=== PATIENT | male | born 1945 | race Caucasian/White ===

== ENCOUNTER 2019-10-31 12:00 | Outpatient (REF) | payer MEDICARE, BC, SELFPAY ==
[2019-10-31 12:49] LABS: NT Pro B Type Natriuretic Pept 8097 pg/mL (0-450)
== END 2019-10-31 12:01 | disposition home or self-care (01) ==
LOC: LAB 12:00
PROVIDERS: Family Provider Nurse Practitioner Family; Visit Provider Nurse Practitioner Family
DX: Z01.89 Encounter for other specified special examinations (principal)
CPT/HCPCS: 83880

== ENCOUNTER 2019-11-03 06:02 | Outpatient (CLI) | payer MEDICARE, BC, SELFPAY ==
--- NOTE | 2019-11-03 07:15 | USCV_ITS ---
PapaIlan ibarra Age: 74 Gender: M : 1945 Exam Date: 11/03/2019 06:25 Ordering Phys: Kim Bui SPORTS PHYSIOTHERAPIST SPORTS PHYSIOTHERAPIST Technologist: MARIA ELENA LAY Exam Location: [facility] [place] Indication: NEW ONSET OF CHF BP: 106 / 61 HR: 84 Rhythm: Sinus Technical Quality: Technically difficult study MEASUREMENTS (Male / Female) Normal Values 2D ECHO LVOT Diameter 2.2 cm LA Diameter 3.5 cm M-MODE LV Diastolic Diameter MM 4.5 cm 4.2 - 5.9 / 3.9 - 5.3 cm LV Systolic Diameter MM 3.4 cm LV Ejection Fraction MM Teich 49.1 % IVS Diastolic Thickness MM 1.2 cm 0.6 - 1.0 / 0.6 - 0.9 cm IVS Systolic Thickness MM 1.2 cm LVPW Diastolic Thickness MM 1.1 cm 0.6 - 1.0 / 0.6 - 0.9 cm LVPW Systolic Thickness MM 1.6 cm Aortic Annulus Diameter 3.6 cm LA Ao Ratio MM 1.0 MV E Point Septal Separation 1.1 cm DOPPLER AV Peak Velocity 165.0 cm/s LVOT Peak Velocity 58.0 cm/s AV Area Cont Eq vti 1.1 cm squared AV Area Cont Eq pk 1.3 cm squared MV Area PHT 4.5 cm squared Mitral E to A Ratio 1.4 MV E' Velocity 11.0 cm/s Mitral E to MV E' Ratio 11.6 Mitral E to LV E' Lateral Ratio 10.6 Mitral E to LV E' Septal Ratio 12.7 TR Peak Velocity 417.8 cm/s TR Peak Gradient 69.8 mmHg TR Mean Velocity 286.2 cm/s TR Mean Gradient 36.9 mmHg TR Velocity Time Integral 125.2 cm TV Peak E Velocity 68.0 cm/s Right Atrial Pressure 15.0 mmHg Pulmonary Artery Systolic Pressu 84.8 mmHg PV Peak Velocity 56.0 cm/s RV Acceleration Time 0.1 s RV Ejection Time 0.3 s RV AcT/ET 0.3 FINDINGS Left Ventricle Normal left ventricular cavity size. Mildly decreased left ventricular systolic function. Flattened septum in diastole consistent with right ventricle volume overload. Grade I/IV diastolic dysfunction (abnormal relaxation filling pattern), normal to mildly elevated filling pressures. Right Ventricle Moderately increased right ventricular size. Severe pulmonary hypertension, RVSP 84.8 mmHg. Right Atrium Moderately increased right atrial size. Left Atrium The left atrium is normal in size. Mitral Valve Severely thickened mitral valve. Severe mitral annular calcification. Trace mitral valve regurgitation. Aortic Valve Severe aortic valve calcification. Moderate aortic valve stenosis, mean gradient 6.1 mmHg, SHUKRI 1.1 cm squared. Trace aortic valve regurgitation. Tricuspid Valve No tricuspid valve stenosis. Moderate tricuspid valve regurgitation. Pulmonic Valve Structurally normal pulmonic valve without significant stenosis. There is no pulmonic regurgitation. Pericardium Normal pericardium without effusion. Aorta Normal ascending aorta dimension. CONCLUSIONS 1-Normal left ventricular cavity size. Mildly decreased left ventricular systolic function. Flattened septum in diastole consistent with right ventricle volume overload. Grade I/IV diastolic dysfunction (abnormal relaxation filling pattern), normal to mildly elevated filling pressures. 2-Moderately increased right atrial size. 3-Severely thickened mitral valve. Severe mitral annular calcification. Trace mitral valve regurgitation. 4-Severe aortic valve calcification. Moderate aortic valve stenosis, mean gradient 6.1 mmHg, SHUKRI 1.1 cm squared. Trace aortic valve regurgitation. 5-Moderately increased right ventricular size. Severe pulmonary hypertension, RVSP 84.8 mmHg. 6-Right atrial pressure is around 20 mm of mercury. 7-When compared to the prior echocardiogram dated 11/10/2019 there appeared to be severe pulmonary hypertension, moderate tricuspid regurgitation and moderate aortic stenosis now. Chantel Sevilla MD (Electronically Signed) Final Date: 03 November 2019 17:45 S
== END 2019-11-03 06:03 | disposition home or self-care (01) ==
LOC: US 06:03
PROVIDERS: Family Provider Family Medicine; PCP Family Medicine; Visit Provider Nurse Practitioner Family
DX: I50.9 Heart failure, unspecified (principal); I05.9 Rheumatic mitral valve disease, unspecified; I70.0 Atherosclerosis of aorta; I35.0 Nonrheumatic aortic (valve) stenosis; I27.20 Pulmonary hypertension, unspecified
CPT/HCPCS: 93306

== ENCOUNTER 2019-11-15 09:30 | Outpatient (CLI) | payer MEDICARE, BC, SELFPAY ==
--- NOTE | 2019-11-15 | US_ITS ---
WS: [id number] BILATERAL LOWER EXTREMITY VENOUS DOPPLER ULTRASOUND HISTORY: NEW ONSET OF CONGESTIVE HEART FAILURE COMPARISON: None available. Normal 2-D, Doppler and augmentation and compressibility throughout the lower extremity venous struct ures. Additional imaging through the proximal calf veins also reveal no thrombus. Limited evaluation of the greater saphenous vein is patent with no thrombus. Bilateral evaluation. US/ROR venous duplex LE BI IMPRESSION: No DVT lower extremities.
== END 2019-11-15 09:31 | disposition home or self-care (01) ==
LOC: RADOUTREAD 12:50
PROVIDERS: Family Provider Family Medicine; PCP Family Medicine; Visit Provider Nurse Practitioner Family
DX: Z76.89 Persons encountering health services in other specified circumstances (principal)

== ENCOUNTER 2019-11-24 08:30 | Observation (INO) | payer MEDICARE, BC, SELFPAY ==
[2019-11-24] VITALS (16 sets, daily range): BP systolic 101–142; BP diastolic 52–85; PULSE 66–88; RESP 14–36; TEMP 36.6; O2SAT 82–100; BMI 30.7
--- NOTE | 2019-11-24 07:22 | XACV_ITS ---
Exam Room: [facility] Ht: 185 cm Wt: 106 kg BSA: 2.36 m2 Gender: Male : 1945 Any Known Allergies: No known allergies Exam Priority: Routine Procedure(s): Procedure Description: Diagnostic procedure Procedure Description: Right Heart Catheterization Procedure Description: O2 saturation Procedure Description: Coronary Angiography Diagnostic Cath Status: Elective Diagnostic Findings LM has 0% stenosis. dLAD: Mild 20% stenosis, SALMA: 3 flow. dCIRC: Mild 20% stenosis, SALMA: 3 flow. mRCA: Mild 30% stenosis, SALMA: 3 flow. Coronary angiography shows right dominance. PCI Status: Elective Conclusions There is mild coronary artery disease with three vessel disease. Right heart cath. #1 High right-sided filling pressure RA =17 mmHg #2 High right ventricle systolic pressure 69/35 mmHg #3 S evere pulmonary hypertension 60 mmHg High cardiac output 6 L/m, Normal cardiac index 2.0No reversibility notedNo intracardiac shunt noted . Recommendations Continue current medical management and risk factor modification. Pressures Phase:Rest AO : 104 mmHg / 68 mmHg ( 81 mmHg ) @ 3:25:00 AM RV : 92 mmHg / 16 mmHg / @ 3:13:00 AM PA : 69 mmHg / 35 mmHg ( 48 mmHg ) @ 3:00:00 AM 76 mmHg / 48 mmHg ( 60 mmHg ) @ 3:05:00 AM 74 mmHg / 52 mmHg ( 61 mmHg ) @ 3:08:00 AM 66 mmHg / 53 mmHg ( 60 mmHg ) @ 3:12:00 AM RA : a wave = v wave = mean = 17 mmHg @ 3:14:00 AM O2 Content Phase:Rest PA : O2 Content O2: 67.6 % @ 3:25:00 AM Saturations Phase:Rest AO : 89 % @ 3:08:00 AM RA : 59 % @ 3:05:00 AM RV : 60 % @ 3:00:00 AM PA : 68 % @ 3:25:00 AM Cardiac Output Phase:Rest David : 6 l/min @ 3:25:00 AM David Cardiac Index: 3 L/min/m2 @ 3:25:00 AM Clinical Evaluation EBL: 5mL-10mL Procedural Details Procedure Consent Obtained. Pre-Procedure Time Out. Identified patient by full name and date of as verbalized by the patient/guarantor. Does the consent match the physician's order: Yes. Accurate & Complete Informed Consent: Yes. Inpatient/Outpatient History & Physical on Chart: Yes. If H&P is completed, is and addenduem needed: No; If yes, is the addendum complete: N/A. Visualize and Verify Site with Patient/Guarantor: N/A. Relevant Radiology Images available: Yes. Pre-op teaching completed and patient verbalized understanding. The risks, benefits, and alternatives of sedation and/or procedure were discussed by physician. The patient agrees to continue. Procedure started. Correct patient, site and procedure confirmed by cath team. Current diagnosis: Shortness of breath and Chest Pain. PERRLA. Strong, equal hand sheather bilaterally. Lungs clear x 5 lobes. IV Site on Arrival: 20 gauge in the right anticubital. IV Fluids: 0.9% NaCl at KVO. 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 Pre Procedural Pulses: bilateral dorsalis pedis was 3+. Pre Procedural Pulses: bilateral posterior tibial was 3+. Pre Procedural Pulses: bilateral radial was 3+. Oxygen started at 4liters/min via nasal canula. bilateral groins was prepped with chloroprep then draped in the usual sterile fashion. right radial was prepped with chloroprep then draped in the usual sterile fashion. Physician notified. Baseline sample Acquired. HR: 82 BPM. Equipment: 6F - Radial. ACIST Manifold Kit Model BT 2000. Cardiac Cath Pack. Heparinized Saline (2 units/mL), 1000 mL bag. Physician arrived. Physician scrubbed in. Immediate Pre-Procedure Time Out. Correct Patient: Yes; Correct Procedure: Yes; Correct Site: Yes; Correct Patient Position: Yes; Correct Supplies: Yes; Dried Flammable Prep: Yes; Blood Products Available: No;. Lidocaine 1% infiltrated to the right brachial. Arterial access obtained. [place] MON catheter inserted. Hand injection performed. Patient placed on room air. Oximetry samples were obtained. Normal venous range: 60-85%. Normal arterial range: 95-100%. O2 placed back on 4lpm. [place] out. Lidocaine 1% infiltrated to the right radial. Family updated. A 5 mongolian TIG catheter in over wire. Patient placed back on room air. AO saturation drawn. Patient placed on 4lpm. Multiple views taken of left coronary artery. Catheter redirected to the RCA. Multiple views taken of right coronary artery. Catheter out. A 5 mongolian Bernardino catheter in over wire. 6 mongolian XB 3.5 guide catheter was inserted over the wire. A 6 mongolian Angled Pig catheter in over wire. Vital chart was stopped. TR band placed. Hemostasis obtained. A Manual Compression was successful obtaining hemostatsis at the Right Brachial artery insertion site. A TR Band was successful obtaining hemostatsis at the Right Radial artery insertion site. Post Procedure: Pulses reassessed and unchanged. PERRLA. Strong, equal hand sheather bilaterally. No VTE prophylaxis required. Medication's Wasted: Lidocaine 1% = 12 mL. Medication's Wasted: Nitro = 49.8 mg. Medication's Wasted: Heparin = 1000 units. Medication's Wasted: Other = Fentanyl 25 mcg. Total IV fluids: 75 mL. Contrast type used: Visipaque 320 mgI/mL, 500 mL bottle. Complications: None. Estimated blood loss: 5mL-10mL. [facility] Clinical Fraility Score: 3: Managing Well. 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 Chest Pain Symptom Assessment: Typical Angina Symptoms. Cardiovascular Instability: No. Procedure completed. Post-op diagnosis: Pulmonary Hypertension. Site: Right Brachial artery Sheath Size: 6 Fr Hemostasis Method: Manual Compression Hemostasis Success: Successful Site: Right Radial artery Sheath Size: 6 Fr Hemostasis Method: TR Band Hemostasis Success: Successful Procedure Medications Start: 8:38 AM Stop: 8:38 AM Medication: Versed Amount: 1 mg Route: I.V. Start: 8:38 AM Stop: 8:38 AM Medication: Fentanyl Amount: 50 mcg Route: I.V. Start: 8:48 AM Stop: 8:48 AM Medication: Versed Amount: 1 mg Route: I.V. Start: 9:06 AM Stop: 9:06 AM Medication: Nitrogylcerin Amount: 2 Sprays Start: 9:09 AM Stop: 9:09 AM Medication: Nitrogylcerin Amount: 2 Sprays Start: 9:09 AM Stop: 9:09 AM Medication: Versed Amount: 0.5 mg Route: I.V. Start: 9:17 AM Stop: 9:17 AM Medication: Fentanyl Amount: 25 mcg Route: I.V. Start: 9:25 AM Stop: 9:25 AM Medication: Heparin Amount: 5000 units Route: I.V. Start: 9:38 AM Stop: 9:38 AM Medication: Versed Amount: 1 mg Route: I.V. I, the attending physician, have reviewed and verified all procedure medications. Yes, all medications given per verbal order History/Risk Factors Hypertension: Yes Dyslipidemia: No Peripheral Arterial Disease (PAD): No Myocardial Infarction (IL): No Obesity: No Renal Disease: No Tobacco Use: Former Prior Interventions PCI: No CABG: No Valve Surgery: No Report Signatures Finalized by:Chantel Sevilla MD on 12/02/2019 7:05:00 PM
[2019-11-24] MEDS: diphenhydrAMINE 50 mg Capsule PO (07:29)
--- NOTE | 2019-11-24 07:35 | SUR.PREOP ---
THE PATIENT'S ROOM AIR SAT WAS 82%. WHEN ASKED HE STATES THAT HE WEARS O2 CHRONICALLY AT HOME AT 5 LPM BNC PRN. THIS NURSE ASKED IF HE FELT LIKE HE NEEDED IT AND HE STATED NO, THIS IS MY NORMAL . THE PATIENT IS IN NO VISIBLE DISTRESS. THE O2 WAS MONITORED FOR A FEW MINUTES WITH THE SATS STAYING 82-83%. O2 WAS PLACED ON THE PATIENT AT 4 LPM BNC WITH SATS INCREASING TO 93-96%.
[2019-11-24 07:44] LABS: Basophils # 0.1 10^3/uL (0.0-0.1); Basophils % 0.7 %; Eosinophils # 0.2 10^3/uL (0.0-0.8); Eosinophils % 2.7 %; Hematocrit 52.6 % (42.0-52.0); Hemoglobin 16.5 g/dL (11.7-16.6); Lymphocytes # 2.2 10^3/uL (0.8-4.8); Lymphocytes % 26.6 %; Mean Corpuscular HGB Conc 31.4 g/dL (30.0-36.0); Mean Corpuscular Hemoglobin 28.5 pg (28.0-34.0); Mean Platelet Volume 9.9 fL (7.4-10.4); Monocytes # 0.8 10^3/uL (0.2-0.9); Monocytes % 9.3 %; Neutrophils % 60.2 %; Nucleated Red Blood Cells % 0 %; Platelet Count 177 10^3/cmm (130-400); Red Blood Count 5.78 10^6/uL (4.1-5.3); Red Cell Distribution Width 15.9 % (12.1-15.1); White Blood Count 8.3 10^3/uL (4.0-10.0)
[2019-11-24 08:03] LABS: Anion Gap 15.6 (5-19); Blood Urea Nitrogen 41 mg/dL (8-23); Calcium 10.1 mg/dL (8.5-10.5); Carbon Dioxide 26 mmol/L (22-29); Chloride 102 mmol/L (98-107); Glucose 127 mg/dL (65-115); Osmolality Calculated 287 mOsm/kg (285-295); Potassium 4.6 mmol/L (3.5-5.1); Sodium 139 mmol/L (136-145)
--- NOTE | 2019-11-24 14:08 | PC.NURSE ---
patient discharge home at this time, patient provided with discharge instructions and educated on post angiogram site care. Discussed follow up appointment and plans for further care. Patient and spouse verbalized understanding of all instructions given. IV discontinued cath intact min bleeding noted.
== END 2019-11-24 14:15 | disposition home or self-care (01) ==
LOC: CSU 08:31
PROVIDERS: Admitting Provider Internal Medicine Cardiovascular Disease; Family Provider Family Medicine; PCP Family Medicine; Visit Provider Internal Medicine Cardiovascular Disease
DX: I25.10 Atherosclerotic heart disease of native coronary artery without angina pectoris (principal); Z82.49 Family history of ischemic heart disease and other diseases of the circulatory system; I11.0 Hypertensive heart disease with heart failure; I50.9 Heart failure, unspecified; Z87.891 Personal history of nicotine dependence; I35.0 Nonrheumatic aortic (valve) stenosis
CPT/HCPCS: 36415; 80048; 85025; 93456; C1751; C1769; C1887; C1894; G0378; J1644; J2001; J2250; J3010; J3490; J7030; Q0163; Q9967

== ENCOUNTER 2020-04-13 08:49 | Outpatient (CLI) | payer MEDICARE, BC, SELFPAY ==
[2020-04-13 10:21] LABS: D Dimer 2.99 ug/mIFEU (0-0.59)
[2020-04-13 10:37] LABS: NT Pro B Type Natriuretic Pept 3875 pg/mL (0-450)
== END 2020-04-13 08:50 | disposition home or self-care (01) ==
LOC: LAB 08:53
PROVIDERS: Family Provider Family Medicine; PCP Family Medicine; Visit Provider Nurse Practitioner Family
DX: R06.02 Shortness of breath (principal)
CPT/HCPCS: 83880; 85378

== ENCOUNTER → 2020-07-06 09:53 | Day surgery (SDC) | payer MEDICARE, BC, SELFPAY ==
[2020-07-06 10:33] VITALS: BP 97/56; PULSE 95; RESP 18; TEMP 36.4; O2SAT 100; BMI 25.7
--- NOTE | 2020-07-06 11:24 | PM.ACPR ---
Procedure/Consent Time out: Time Out Performed: Yes Consent: Consent for Procedure: Consent obtained from patient Procedure Narrative: Name of the procedure: Right-sided thoracentesis under ultrasound guidance Indication: Suspicion for pleural space infection Anesthetics: Local anesthesia with 1% lidocaine. IV pain medication: None. Description of the procedure: The procedure was explained to the patient in detail including the risks and a consent was obtained. The right hemithorax was scanned with ultrasound to find a safe fluid pocket. Complex organized small loculated pleural effusion was identified. Following identification of the fluid pocket the site was marked. The site was cleaned using sterile technique. Lidocaine 1% was injected into the skin and the subcutaneous tissue. Subsequently, the periosteum in the parietal pleural was also anesthetized using lidocaine. The pleural space was entered in the posterior axillary line in the right seventh intercostal space. No significant fluid was aspirated. Complications: None Acute Procedures Epistaxis Control: Time out performed: Yes
--- NOTE | 2020-07-06 11:31 | PC.NURSE ---
Pt was continuously monitored vital signs. Oxygen saturation remained at 100% for duration of procedure. Dr. Chen attempted to aspirate fluid from right side pleural space but was unable to receive any fluid. Bandage was applied to insertion side by Dr. Chen. No bleeding noted.
== END ==
PROVIDERS: PCP Family Medicine; Visit Provider Internal Medicine Critical Care Medicine
DX: J90 Pleural effusion, not elsewhere classified (principal)
CPT/HCPCS: 12345; 32554

== ENCOUNTER 2021-04-24 12:34 | Outpatient (CLI) | payer MEDICARE, BC, SELFPAY ==
--- NOTE | 2021-04-24 14:30 | CT_ITS ---
WS: [id number] CT CHEST, ABDOMEN, AND PELVIS TECHNIQUE: Noncontrast CT of the chest, abdomen, and pelvis with coronal and sagittal reformatted madelyn ges. CLINICAL INFORMATION: Weight Loss COMPARISON: CTA 12 , PET/CT 4 , CT chest 4 ,018. DLP: 2345.[address] scans at [facility] use at least one of these dose optimization techniques: automat ed exposure control; mA and/or kV adjustment per patient size (includes targeted exams where dose is matched to clinical indication); or iterative reconstruction. CT CHEST: Volume loss right lung with prior right lower and middle lobectomy. Postoperative changes along the r ight infrahilar lung. Small right pleural effusion with compressive atelectasis right lower lobe. Int erstitial thickening with patchy fibrotic appearing parenchymal infiltrates in the right midlung and right lung base.. This is improved in appearance since 2018. Left lung is well aerated. No mediastinal or hilar lymphadenopathy. Aortic calcification. Coronary calcification. Bronchovascula r thickening along the right hilum consistent with postoperative and posttherapeutic changes.Hypertro phic changes thoracic spine. CT ABDOMEN AND PELVIS: Mild hepatomegaly. Cholecystectomy clips. Mild splenomegaly measuring 12.5 cm. Normal GE junction. Fatty atrophy of the pancreas. Adrenal gland s are normal. No hydronephrosis in either kidney. No obstructing renal or ureteral calculi. Slightly prominent prostate measuring 3.1 x 3.8 cm. Aortic calcification. Dense calcified atheromatous disease . No aneurysm. No abdominal or pelvic lymphadenopathy. No inguinal lymphadenopathy. CT/CT chest abd pel wo con IMPRESSION: 1. Prior postoperative changes right middle and lower lobe lobectomy. Volume l oss right lung similar in appearance to the prior exams. 2. Bronchovascular soft tissue thickening along the right hilum and infrahilar lung consistent with postoperative changes similar to previous. 3. Small right pleural effusion improved from 2018. 4. Interstitial fibrotic appearing infiltrates in the right midlung and right lung base have a chronic appearance and are similar to 2018 but have improved. 5. No mediastinal or hilar lymphadenopathy. 6. No abdominal or pelvic lymphadenopathy. 7. Mild hepatomegaly and splenomegaly. 8. Densely calcified abdominal aorta. No aneurysm. 9. Slightly prominent prostate measuring 3.8 x 3.1 CCM. Recommend correlation PSA. 10. No other significant findings.
== END 2021-04-24 12:35 | disposition home or self-care (01) ==
PROVIDERS: PCP Family Medicine; Visit Provider Internal Medicine Critical Care Medicine
DX: R63.4 Abnormal weight loss (principal); N40.0 Benign prostatic hyperplasia without lower urinary tract symptoms; I70.0 Atherosclerosis of aorta; R16.2 Hepatomegaly with splenomegaly, not elsewhere classified; J90 Pleural effusion, not elsewhere classified; R91.8 Other nonspecific abnormal finding of lung field; Z90.2 Acquired absence of lung [part of]
CPT/HCPCS: 71250; 74176

== ENCOUNTER 2021-07-30 11:06 | Emergency (ER) | payer MEDICARE, BC, SELFPAY ==
[2021-07-30] VITALS (8 sets, daily range): BP systolic 93–128; BP diastolic 54–78; PULSE 72–80; RESP 16–18; TEMP 36.2; O2SAT 94–100; BMI 25.1
--- NOTE | 2021-07-30 12:05 | ED_ITS ---
HPI - Male Genitourinary General: Chief complaint: Urogenital-Male Stated complaint: Unable to urinate since Midnight Time Seen by Provider: 07/30/21 12:03 History of Present Illness: HPI Narrative: Mr. Bhatia is a 76-year-old gentleman with complex past medical history including pulmonary hypertension, aortic stenosis, hypertension, CHF who presents emergency department due to urinary retention. He reports a history of a number of years of increased night awakening to urinate and decrease stream. Starting this morning at around midnight he has been unable to void until of course getting here and having a small amount of urine output. He does endorse mild aching abdominal discomfort associated with this. This improved with urination. He has been following closely with his materials technician and has been working on diuresis. Baseline shortness of breath and other symptoms. No history of similar. No other specific exacerbating relieving factors. Review of Systems General: Reports: 10 or more systems reviewed and unremarkable except in HPI and below PFSH ED PFSH: Medical History (Updated 07/30/21 @ 18:22 by Murphy Peres MD) AML (acute myeloblastic leukemia) Aortic valvar stenosis CHF (congestive heart failure) History of DVT (deep vein thrombosis) HTN (hypertension) Pulmonary hyperinflation Surgical History History of bone marrow biopsy S/P carpal tunnel release left S/P cholecystectomy S/P knee surgery left S/P thoracotomy Family History Brother CAD (coronary artery disease) Cancer Social History Quit status (tobacco): has quit using tobacco Year quit tobacco: 1987 - 2PPD x 30 Years Second hand smoke exposure: No Smoking risk assessment/counseling performed?: Yes Alcohol intake: never Lives independently: Yes Household members: spouse Marital status: service: Yes Current occupational status: retired Pets and animals: Yes Pets & animals: cat(s) Pets & animal details: outside History of recent travel: No Current gender identity: Male Physical Exam Narrative: EXAM NARRATIVE: GENERAL/CONSTITUTIONAL - well-appearing. No acute distress. Eyes - no scleral icterus, no conjunctival injection ENMT - Atraumatic external nose and ears. Moist mucous membranes NECK - supple. trachea midline CARDIOVASCULAR - regular rate and rhythm. Peripheral pulses 2+ and equal RESPIRATORY -clear to auscultation bilaterally. No retractions or accessory muscle use. ABDOMEN/GI - suprapubic tenderness to palpation which is mild. No evidence of remote peritonitis. MSK - Extremities without obvious deformity or tenderness to palpation SKIN - Warm, Dry NEURO - alert and appropriately oriented. Moves all extremities equally. Course ED course: - Patient was seen and evaluated by me at bedside - Patient placed on cardiac monitors, IV access obtained - Initial evaluation notable for no acute distress, nontoxic appearance. Exam as noted above. - Bladder scan with urine present in bladder. - Labs notable for no leukocytosis, no anemia. Metabolic panel notable for low potassium 2.5. Replenishment ordered. BNP still elevated however patient feels improved with improvement in peripheral edema. Baseline oxygen requirement. No urinary tract infection. - Imaging notable for no acute bony pathology or evidence of marked central canal stenosis. The patient has some baseline low back pain however based on clinical exam and reported symptoms no additional imaging needed at this time. - Upon serial reexamination after treatment the patient was improved. He received both oral and IV potassium replenishment. I discussed the case with the patient's coil finisher, patient to be taken off metolazone and have repeat labs this week. - Exact etiology of patient's acute urinary retention is somewhat unclear though felt to be related to BPH. Plan to have patient follow-up with Dr. Aaron. - The results of ED evaluation were discussed with the patient including prescriptions and/or symptomatic cares (if applicable) including appropriate and responsible use, followup plan, and return precautions. The patient verbalized understanding and felt safe for discharge. - Patient discharged in satisfactory condition. Vital Signs: Vital signs: Vital Signs Temperature 97.1 F L 07/30/21 12:17 Pulse Rate 72 07/30/21 17:26 Respiratory Rate 16 07/30/21 17:26 Blood Pressure 93/56 07/30/21 18:38 Pulse Oximetry 100 07/30/21 18:38 MDM - Male Medical Records: Attestation: I reviewed the patient's medical records. Lab Data: Attestation: I reviewed the patient's lab results. Labs: Lab Results 07/30/21 07/30/21 07/30/21 12:45 12:45 12:45 WBC 5.8 10^3/uL 10^3/ uL (4.0-10.0) RBC 4.24 10^6/uL 10^6 /uL (4.1-5.3) Hgb 11.7 g/dL g/dL (11.7-16.6) Hct 36.4 % L % (42.0-52.0) MCV 85.8 fl fl (80-94) MCH 27.6 pg L pg (28.0-34.0) MCHC 32.1 g/dL g/dL (30.0-36.0) RDW 15.8 % H % (12.1-15.1) Plt Count 165 10^3/cmm 10^3 /cmm (130-400) MPV 9.3 fL fL (7.4-10.4) Neut % (Auto) 79.9 % % Lymph % (Auto) 8.3 % % [place] % (Auto) 10.7 % % Eos % (Auto) 0.5 % % Baso % (Auto) 0.3 % % Neut # (Auto) 4.60 10^3/uL 10^3 /uL (1.8-7.7) Lymph # (Auto) 0.5 10^3/uL L 10^ 3/uL (0.8-4.8) [place] # (Auto) 0.6 10^3/uL 10^3/ uL (0.2-0.9) Eos # (Auto) 0.0 10^3/uL 10^3/ uL (0.0-0.8) Baso # (Auto) 0.0 10^3/uL 10^3/ uL (0.0-0.1) Nucleated RBC % (a uto) 0 % % Nucleated RBCs # 0.0 /100WBC /100W BC Sodium 130 mmol/L L mmol /L (136-145) Potassium 2.5 mmol/L L* mmo l/L (3.5-5.1) Chloride 89 mmol/L L mmol/ L (98-107) Carbon Dioxide 30 mmol/L H mmol/ L (22-29) Anion Gap 13.5 (5-19) BUN 16 mg/dL mg/dL (8-23) Creatinine 0.7 mg/dL mg/dL (0.7-1.2) GFR Calculation Not Reportable Glucose 98 mg/dL mg/dL (65-115) Calculated Osmolal ity 271 mOsm/kg L mOs m/kg (285-295) Calcium 8.4 mg/dL L mg/dL (8.5-10.5) Magnesium Urine Color Yellow (Yellow) Urine Appearance Clear (CLEAR) Urine pH 6.5 (5-7) Ur Specific Gravit y 1.005 (1.005-1.030) Urine Protein Neg (Negative) Urine Glucose (UA) Norm (Normal) Urine Ketones Negative (Negative) Urine Blood Neg (Negative) Urine Nitrate Negative (Negative) Urine Bilirubin Neg (Negative) Urine Urobilinogen Norm mg/dL mg/dL (Negative) Ur Leukocyte Monika ase Negative (Negative) 07/30/21 12:45 WBC RBC Hgb Hct MCV MCH MCHC RDW Plt Count MPV Neut % (Auto) Lymph % (Auto) [place] % (Auto) Eos % (Auto) Baso % (Auto) Neut # (Auto) Lymph # (Auto) [place] # (Auto) Eos # (Auto) Baso # (Auto) Nucleated RBC % (a uto) Nucleated RBCs # Sodium Potassium Chloride Carbon Dioxide Anion Gap BUN Creatinine GFR Calculation Glucose Calculated Osmolal ity Calcium Magnesium 1.9 mg/dL mg/dL (1.7-2.3) Urine Color Urine Appearance Urine pH Ur Specific Gravit y Urine Protein Urine Glucose (UA) Urine Ketones Urine Blood Urine Nitrate Urine Bilirubin Urine Urobilinogen Ur Leukocyte Monika ase Discharge Plan Discharge Patient Disposition: Home Clinical Impression: Acute urinary retention, Acute hypokalemia Condition: Stable Prescriptions: New Flomax 0.4 mg capsule 0.4 mg PO .qhs Qty: 20 RF: 0 Pyridium 100 mg tablet 100 mg PO Q8H Qty: 6 RF: 0 No Action levothyroxine 100 mcg tablet 100 mcg PO DAILY RF: 0 furosemide 40 mg tablet 40 mg PO DAILY Qty: 90 RF: 3 potassium chloride 20 mEq/15 mL liquid 20 meq PO DAILY Qty: 450 RF: 6 albuterol sulfate 2.5 mg /3 mL (0.083 %) solution for nebulization 5 mg inhalation Q4H PRN (Reason: shortness of breath or wheezing) RF: 0 metolazone 2.5 mg tablet 2.5 mg PO DAILY 7 Days Qty: 7 RF: 0 cetirizine [Zyrtec] 10 mg tablet 10 mg PO DAILY RF: 0 guaifenesin [Mucinex] 600 mg tablet extended release 12hr 600 mg PO Q12H PRNRF: 0 nystatin 100,000 unit/mL suspension 1 ml PO QID PRN (Reason: Mouth Irritation) RF: 0 valacyclovir [Valtrex] 500 mg tablet 500 mg PO DAILY RF: 0 azithromycin 250 mg tablet 250 mg PO .COMPLEX 30 Days Qty: 15 RF: 3 sildenafil (pulm.hypertension) 20 mg tablet See Rx Instructions .ROUTE .COMPLEX Qty: 270 RF: 3 Trelegy Ellipta 100-62.5-25 mcg Blister With Device 1 inh INHALATION DAILY RF: 0 Discharge Orders: Discharge ED (Routine); Ordered 07/30/21 Ordered By: Murphy Peres Referrals: Rhys Ramos MD [Primary Care Provider] - Discharge Diet: Usual diet Discharge Activity: Resume usual activity Patient Instructions: Urinary Retention in Men (ED), Hypokalemia (ED), Martínez Catheter Placement and Care (ED) Activity Restrictions/Additional Instructions: Thank you for visiting the emergency department. You were seen and evaluated for urinary retention. The exact cause of this is unclear though likely related to enlarged prostate. Additionally you are found to have low potassium which was replaced. Please follow-up with your primary care provider. Dr. Chen, and Dr. Aaron. Per Dr. Chen's recommendation please stop your metolazone. You will need repeat labs in the next few days. Please return to the emergency department for worsening symptoms or anything else that you are concerned about and feel needs emergency department evaluation. Coding Level of Care Code ED [facility]
--- NOTE | 2021-07-30 12:19 | PC.NURSE ---
PATIENT COMPLAINS OF 9/10 PAIN IN LOWER ABDOMEN. PATIENT STATES THAT LAST VOID WAS AROUND MIDNIGHT. PATIENT HAS VOIDED 150 ML SINCE BEING HERE. BLADDER SCANNER COMPLETE. READINGS OF GREATER THAN 530 ML.
--- NOTE | 2021-07-30 12:35 | CT_ITS ---
WS: [id number] CT LUMBAR SPINE, noncontrast. HISTORY: low back pain TECHNIQUE: Contiguous 2.5 mm axial imaging are performed. Sagittal and coronal reformats are submitte d and reviewed. All CT scans at [facility] use at least one of these dose optimization techni ques: automated exposure control; mA and/or kV adjustment per patient size (includes targeted exams w here dose is matched to clinical indication); or iterative reconstruction. IV contrast: None DLP: 2395.5 mGy.cm COMPARISON: None available. Mild straightening of the normal lumbar lordosis. Diffuse osteopenia. Disc spaces are mildly narrowed with mild osteophytic ridging at all levels. No acute fracture is identified. L1-2: Mild annular disc bulging and osteophytic ridging. No stenosis. L2-3: Moderate osteophytic ridging and annular disc bulging. Larger osteophytes extend into the RIGHT foramen. Osteophyte contacts the exiting RIGHT L2 nerve root. Mild RIGHT foraminal narrowing. L3-4: Mild annular disc bulging and osteophytic ridging. Disc and osteophyte encroachment upon the ve ntral thecal sac causing a mild central and subarticular recess stenosis. Mild foraminal stenosis. L4-5: Diffuse osteophytic ridging and annular disc bulging with ligamentum flavum and facet arthritis . Moderate central and bilateral subarticular recess stenosis. Mild foraminal stenosis. There is oste ophyte contact on the traversing L5 nerve roots. L5-S1: Mild broad-based disc bulging with slight contact on the S1 nerve roots bilaterally and osteop hytic ridging. No significant foraminal stenosis. Mild narrowing of the SI joints. Moderate near circumferential calcification of abdominal aorta. Ther e is a small amount of free fluid in the pelvis with perirectal soft tissue thickening. Similar to th e prior CT of 04/24/2021. Increasing opacification of the RIGHT thorax noted on the almond huller localizer. CT/CT lumbar spine wo con* [id number] IMPRESSION: 1. Osteophyte contact on the RIGHT exiting L2 nerve root causing mild foramina l narrowing. 2. Mild central and bilateral subarticular recess and foraminal stenosis at L3 -4 due to disc and osteophyte disease. 3. Moderate central with bilateral subarticular recess stenosis at L4-5 with o steophyte contacting the traversing L5 nerve roots. 4. Broad-based disc bulging at L5-S1 with slight contact on the S1 nerve roots bilaterally. 5. Increasing opacification throughout the RIGHT thorax seen on the almond huller loca lizer with a small amount of free fluid in the pelvis. Pleural effusion and ate lectasis have been described on prior exams.
[2021-07-30 12:53] LABS: Basophils % 0.3 %; Eosinophils % 0.5 %; Hematocrit 36.4 % (42.0-52.0); Hemoglobin 11.7 g/dL (11.7-16.6); Lymphocytes # 0.5 10^3/uL (0.8-4.8); Lymphocytes % 8.3 %; Mean Corpuscular HGB Conc 32.1 g/dL (30.0-36.0); Mean Corpuscular Hemoglobin 27.6 pg (28.0-34.0); Mean Corpuscular Volume 85.8 fl (80-94); Mean Platelet Volume 9.3 fL (7.4-10.4); Monocytes # 0.6 10^3/uL (0.2-0.9); Monocytes % 10.7 %; Neutrophils % 79.9 %; Nucleated Red Blood Cells % 0 %; Platelet Count 165 10^3/cmm (130-400); Red Blood Count 4.24 10^6/uL (4.1-5.3); Red Cell Distribution Width 15.8 % (12.1-15.1); White Blood Count 5.8 10^3/uL (4.0-10.0)
[2021-07-30 12:57] LABS: Add Urine Microscopic? NO; Charge for UA Resulting for Rev
[2021-07-30 12:59] LABS: Bilirubin Urine Neg (Negative); Blood Urine Neg (Negative); Glucose Urine UA Norm (Normal); Ketones Urine Negative (Negative); Nitrate Urine Negative (Negative); Protein Urine Neg (Negative); Specific Gravity, Urine 1.005 (1.005-1.030); Urine Appearance Clear (CLEAR); Urine Color Yellow (Yellow); pH Urine 6.5 (5-7)
[2021-07-30 13:00] LABS: Leukocyte Esterase Urine Negative (Negative); Urobilinogen Urine Norm (Negative)
[2021-07-30 13:14] LABS: Anion Gap 13.5 (5-19); Blood Urea Nitrogen 16 mg/dL (8-23); Calcium 8.4 mg/dL (8.5-10.5); Carbon Dioxide 30 mmol/L (22-29); Chloride 89 mmol/L (98-107); Glucose 98 mg/dL (65-115); Osmolality Calculated 271 mOsm/kg (285-295); Sodium 130 mmol/L (136-145)
[2021-07-30 13:16] LABS: Potassium 2.5 mmol/L (3.5-5.1)
[2021-07-30] MEDS: potassium chloride ER 20 mEq Tablet 40 MEQ PO (13:40)
[2021-07-30] MEDS: lidocaine 1% 5 ML in potassium chloride premix 100 ML 25 ML IV (13:45)
[2021-07-30 13:47] LABS: Magnesium 1.9 mg/dL (1.7-2.3)
--- NOTE | 2021-07-30 14:16 | PC.NURSE ---
PATIENT TOLERATING POTASSIUM WELL. ASKED IF PATIENT NEEDS ANYTHING, DENIED.
--- NOTE | 2021-07-30 14:32 | PC.NURSE ---
CATHETER PEGUERO DRAINED 1200 ML.
--- NOTE | 2021-07-30 18:05 | PC.NURSE ---
PEGUERO CATHETER DRAINED. 1800 ML, BRIGHT YELLOW URINE. PATIENT EDUCATION GIVEN ON HOW TO DRAIN PEGUERO CATHETER AND CARE FOR PEGUERO CATHETER AT HOME.
--- NOTE | 2021-07-31 09:02 | DCPLANNER ---
education program manager had message to schedule a follow up appointment for patient with Dr. Aaron. education program manager called the office of Dr. Aaron, spoke with Ena, gave clinic patients information. education program manager was told that patients information would be printed and reviewed. Clinic will call patient with appointment information.
--- NOTE | 2021-08-07 12:17 | DCPLANNER ---
Patient has a follow up appointment scheduled for Thursday, August 14, [address] at 4:[address] Aaron. Clinic will call patient with appointment information.
--- NOTE | 2021-10-13 16:33 | DCPLANNER ---
Patient had a followup appointment scheduled with Dr. Aaron - patient did attend appointment.
== END 2021-07-30 18:33 | disposition home or self-care (01) ==
PROVIDERS: Emergency Provider Emergency Medicine; PCP Family Medicine
DX: R33.9 Retention of urine, unspecified (principal); E87.6 Hypokalemia; I11.0 Hypertensive heart disease with heart failure; I50.9 Heart failure, unspecified; C93.00 Acute monoblastic/monocytic leukemia, not having achieved remission
CPT/HCPCS: 51702; 51798; 72131; 80048; 81003; 83735; 85025; 96374; 96375; 99283; J3480

== ENCOUNTER 2021-08-02 23:08 | Inpatient (IN) | payer MEDICARE, BC, SELFPAY ==
[2021-08-02 23:22] VITALS: BP 97/52; PULSE 88; RESP 28; O2SAT 90; BMI 23.7
--- NOTE | 2021-08-02 23:28 | XRR_ITS ---
PROCEDURE INFORMATION: Exam: XR Chest Exam date and time: 08/02/2021 11:28 PM Age: 76 years old Clinical indication: Sternal or substernal pain; Additional info: Cp TECHNIQUE: Imaging protocol: XR of the chest. Views: 1 view. COMPARISON: CT chest abd pel wo con 04/24/2021 2:45 PM FINDINGS: Lungs: There is volume loss seen within the right hemithorax. There are increased interstitial opacity seen within the left hemithorax and there is some indistinctness pulmonary vasculature seen, findings that could represent pulmonary edema. Superimposed interstitial pneumonia cannot be excluded. Pleural spaces: The right hemidiaphragm is obscured likely secondary to a right pleural effusion. Patchy and strandy opacities superimposed over the right pleural effusion. This may represent atelectasis although pneumonia cannot be excluded. Heart/Mediastinum: Unremarkable. No cardiomegaly. Bones/joints: Unremarkable. XR/XR chest 1V portable [id number] IMPRESSION: 1. Volume loss seen within the right hemithorax. 2. Probable moderate right pleural effusion with superimposed atelectasis versus infiltrates 3. Indistinct pulmonary vasculature and diffuse increased interstitial markings seen in the left hemithorax, findings that may represent pulmonary edema. Superimposed interstitial pneumonia cannot be excluded as well. Radiation Dose CTDIVOL = (mGy): DLP = (mGy-cm)
--- NOTE | 2021-08-02 23:28 | ECG_ITS ---
[facility] Test Date: 2021-08-02 Pat Name: Ilan Bhatia Department: Room: Gender: Male Sample Sawyer: : 1945 Requested By: Jae Rankin Order Number: [id number] Vipul MD: Aydee Rutherford M.D. Measurements Intervals [place] Rate: 91 P: 46 WI: 206 QRS: 194 QRSD: 139 T: 52 QT: 311 QTc: 384 Interpretive Statements SINUS RHYTHM WITH FREQUENT VENTRICULAR PREMATURE COMPLEXES POSSIBLE LEFT ATRIAL ENLARGEMENT [-0.1mV P-WAVE IN V1/V2] INDETERMINATE AXIS RIGHT BUNDLE BRANCH BLOCK [120+ ms QRS DURATION, UPRIGHT V1, 40+ ms S IN I/aVL/V4/V5/V6] Compared to ECG 09/14/2018 03:24:40 Ventricular premature complex(es) now present Indeterminate axis now present Right bundle-branch block now present Intraventricular conduction delay no longer present Electronically Signed On 08-04-2021 13:21:25 MANDOLIN REPAIR PERSON by Aydee Rutherford M.D. [id number]
[2021-08-03] VITALS (24 sets, daily range): BP systolic 86–99; BP diastolic 44–65; PULSE 65–78; RESP 12–20; TEMP 36.4–36.6; O2SAT 90–100
[2021-08-03] MEDS: levofloxacin-dextrose 5 % 750 MG/150 ML PREMIX 100 MG IV (00:27)
[2021-08-03] MEDS: morphine 4 mg/mL SDV 1 mL 2 MG IVP (00:27)
[2021-08-03] MEDS: ondansetron 2 mg/ML SDV 2 mL 4 MG IVP (00:27)
[2021-08-03 00:48] LABS: Troponin(5th) Baseline 29 ng/L (0-15)
[2021-08-03 00:52] LABS: Basophils % 0.5 %; Eosinophils # 0.1 10^3/uL (0.0-0.8); Eosinophils % 1.1 %; Hematocrit 34.9 % (42.0-52.0); Lymphocytes # 0.5 10^3/uL (0.8-4.8); Lymphocytes % 8.2 %; Mean Corpuscular HGB Conc 31.5 g/dL (30.0-36.0); Mean Corpuscular Hemoglobin 26.7 pg (28.0-34.0); Mean Corpuscular Volume 84.7 fl (80-94); Mean Platelet Volume 9.9 fL (7.4-10.4); Monocytes # 0.5 10^3/uL (0.2-0.9); Monocytes % 8.1 %; Neutrophils # 5.07 10^3/uL (1.8-7.7); Neutrophils % 81.8 %; Nucleated Red Blood Cells % 0 %; Platelet Count 143 10^3/cmm (130-400); Red Blood Count 4.12 10^6/uL (4.1-5.3); Red Cell Distribution Width 15.7 % (12.1-15.1); White Blood Count 6.2 10^3/uL (4.0-10.0)
[2021-08-03 00:57] LABS: Alanine Aminotransferase 11 U/L (0-41); Albumin Level 3.1 g/dL (3.5-5.2); Alkaline Phosphatase 156 IU/L (40-130); Anion Gap 14.8 (5-19); Aspartate Amino Transferase 20 U/L (0-40); Blood Urea Nitrogen 21 mg/dL (8-23); Calcium 8.6 mg/dL (8.5-10.5); Carbon Dioxide 33 mmol/L (22-29); Chloride 86 mmol/L (98-107); Creatine Phosphokinase 47 U/L (39-308); Globulin 4.1 g/dL (1.3-4.6); Glucose 109 mg/dL (65-115); NT Pro B Type Natriuretic Pept 10900 pg/mL (0-450); Osmolality Calculated 276 mOsm/kg (285-295); Sodium 131 mmol/L (136-145); Total Bilirubin 0.8 mg/dL (0.15-1.2); Total Protein 7.2 g/dL (6.6-8.7)
[2021-08-03 01:00] LABS: INR 1.21 (0.8-1.2)
[2021-08-03 01:02] LABS: ABG PCO2 48.4 mmHg (35-45); ABG PH Result 7.49 (7.35-7.45); Base Excess ABG 11.9 mmol/L (-2.0-2.0); Blood Gas Allen Test Pos; Blood Gas Sample Type Arterial; HCO3 ABG 36.8 mmol/L (22-26)
[2021-08-03 01:03] LABS: Lactate (Lactic Acid level) 1.1 mmol/L (0.5-2.2)
[2021-08-03 01:04] LABS: Potassium 2.8 mmol/L (3.5-5.1)
[2021-08-03 01:04] LABS: Blood Gas Sample Site Radial, left; Oxygen Device NC
[2021-08-03 01:14] LABS: Partial Thromboplastin Time 36.7 SECONDS (23.9-36.7)
[2021-08-03 01:16] LABS: D Dimer 2.64 ug/mIFEU (0-0.59)
--- NOTE | 2021-08-03 01:28 | ECG_ITS ---
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 Measurements Intervals [place] Rate: 76 P: 55 AK: 208 QRS: 164 QRSD: 151 T: 42 QT: 407 QTc: 459 Interpretive Statements SINUS RHYTHM WITH OCCASIONAL VENTRICULAR PREMATURE COMPLEXES RIGHT AXIS DEVIATION [QRS AXIS > 100] RIGHT BUNDLE BRANCH BLOCK [120+ ms QRS DURATION, UPRIGHT V1, 40+ ms S IN I/aVL/V4/V5/V6] Compared to ECG 08/02/2021 23:18:35 Right-axis deviation now present Indeterminate axis no longer present Electronically Signed On 08-04-2021 13:27:16 MAINTENANCE MILLWRIGHT by Aydee Rutherford M.D. [id number]
--- NOTE | 2021-08-03 01:39 | CTR_ITS ---
PROCEDURE INFORMATION: Exam: CTA Chest With Contrast Exam date and time: 08/03/2021 1:39 AM Age: 76 years old Clinical indication: Abnormal findings; Abnormal diagnostic tests; Elevated d-dimer; Shortness of breath; Prior surgery; Surgery type: Gb. RT pneumonectomy. ; Patient HX: SOB with elevated d dimer. History of leukemia and lung cancer. ; Additional info: Cp SOB TECHNIQUE: Imaging protocol: Computed tomographic angiography of the chest with contrast. 3D rendering (Not supervised by radiologist): MIP and/or 3D reconstructed images were created by the technologist. Radiation optimization: All CT scans at this facility use at least one of these dose optimization techniques: automated exposure control; mA and/or kV adjustment per patient size (includes targeted exams where dose is matched to clinical indication); or iterative reconstruction. Contrast material: OMNI 350; Contrast volume: 71 ml; Contrast route: INTRAVENOUS (IV); COMPARISON: CTA Chest-Pulmonary Emb [id number] 09/13/2018 11:59 PM RADIATION DOSE METRICS: Total DLP (mGy-cm): 620.7 FINDINGS: Pulmonary arteries: Normal. No pulmonary emboli. Aorta: Calcifications are seen in the thoracic and abdominal aorta. Lungs: Status post partial right pneumonectomy. There is resultant volume loss within the right hemithorax. Diffuse course reticular opacities are seen within the right upper lobe with consolidation and some air bronchograms also seen . Centrilobular emphysema, mild bronchiectasis and pulmonary fibrosis seen within the left hemithorax. Patchy opacities are seen in the left posterior costophrenic recess and infrahilar region likely representing atelectasis. Pleural spaces: There is a prominent right pleural effusion. Heart: Unremarkable. No cardiomegaly. No pericardial effusion. Lymph nodes: Multiple small retroperitoneal lymph nodes are seen that are below CT criteria for lymphadenopathy. Liver: There is a nodular contour of the liver compatible with cirrhosis. Gallbladder and bile ducts: Status post cholecystectomy. Bones/joints: Unremarkable. No acute fracture. Soft tissues: Unremarkable. Other findings: Strandy opacities are present in the perinephric fascia bilaterally compatible with chronic scarring. CT/CT angio chest PE protcl [id number] IMPRESSION: 1. There is no evidence for pulmonary emboli. 2. Status post partial right pneumonectomy . Prominent right pleural effusion is seen with superimposing volume loss within the right upper lobe, coarse reticular opacities and consolidation present. 3. Centrilobular emphysema, mild bronchiectasis and pulmonary fibrosis present within the left lung. Some patchy opacities are present in the left posterior costophrenic recess and some strandy opacities are seen in the infrahilar region compatible with atelectasis. 4. Nodular contour of the liver compatible with cirrhosis. Radiation Dose CTDIVOL = (mGy): DLP = 620.7 (mGy-cm)
[2021-08-03] MEDS: potassium chloride premix 100 ML 25 MEQ IV (01:44)
[2021-08-03] MEDS: iohexol 350 mg/mL 100 mL Btl IV (02:14)
[2021-08-03] MEDS: sodium chloride 0.9% 250 ML IV (02:30)
[2021-08-03] MEDS: fentaNYL 50 mcg/mL INJ 2mL IVP (02:30)
[2021-08-03 02:34] LABS: Add Urine Microscopic? YES; Bilirubin Urine Neg (Negative); Blood Urine 3+ (Negative); Glucose Urine UA Norm (Normal); Ketones Urine Negative (Negative); Leukocyte Esterase Urine 2+ (Negative); Nitrate Urine Positive (Negative); Protein Urine Trace (Negative); Specific Gravity, Urine 1.016 (1.005-1.030); Urine Appearance Clear (CLEAR); Urine Color Yellow (Yellow); Urobilinogen Urine Norm (Negative); pH Urine 6 (5-7)
[2021-08-03 02:35] LABS: RBC Urine 0-4 /hpf (0-2); Squamous Epithelial Cell Urine 0-4 /hpf (0-5); WBC Urine 15-25 /hpf (0-5)
[2021-08-03 02:36] LABS: Add Urine Culture? Yes; Amorphous Sediment Urine 1+ /hpf; Bacteria Urine 2+ /hpf
--- NOTE | 2021-08-03 02:59 | W.ED.CHESTPA ---
HPI - Chest Pain General: Chief Complaint: Chest Pain Stated Complaint: CHEST PAIN Time Seen by Provider: 08/02/21 23:27 History of Present Illness: HPI narrative: 76-year-old gentleman with a history of diastolic heart failure, pulmonary hypertension. He presents with worsening shortness of breath, and mainly chest pain, more to the right than the left, radiating into his right neck. This is a new finding. His daughter states that he told her he has been having pains on and off for the past few days, but the pain came on suddenly tonight, and was much worse. She has had a cough with thick sputum as well. MD complaint: chest pain and other Pertinent past history: other Onset (ago): hour(s) Timing of current episode: constant Prior episodes: Yes Onset: during rest Pain location: substernal, left chest and right chest Pain radiation: neck Quality: tightness Associated symptoms: Reports dyspnea, fever(s) and nausea; Deny abdominal pain, diaphoresis or leg edema Treatment prior to arrival: oxygen Review of Systems Const: Reports: fever(s); Denies: diaphoresis ENMT: Denies: throat pain Card: Reports: chest pain Resp: Reports: dyspnea GI: Reports: nausea; Denies: abdominal pain PFS ED PFSH: Medical History (Updated 07/30/21 @ 18:22 by Murphy Peres MD) AML (acute myeloblastic leukemia) Aortic valvar stenosis CHF (congestive heart failure) History of DVT (deep vein thrombosis) HTN (hypertension) Pulmonary hyperinflation Surgical History History of bone marrow biopsy S/P carpal tunnel release left S/P cholecystectomy S/P knee surgery left S/P thoracotomy Family History Brother CAD (coronary artery disease) Cancer Social History Quit status (tobacco): has quit using tobacco Year quit tobacco: 1987 - PD x 30 Years Second hand smoke exposure: No Smoking risk assessment/counseling performed?: Yes Alcohol intake: never Lives independently: Yes Household members: spouse Marital status: service: Yes Current occupational status: retired Pets and animals: Yes Pets & animals: cat(s) Pets & animal details: outside History of recent travel: No Current gender identity: Male Physical Exam Const: GENERAL APPEARANCE: cooperative, ill appearing and frail appearing ORIENTATION/CONSCIOUSNESS: Yes awake, Yes oriented to person, Yes oriented to place and Yes oriented to time HENMT: COMMON NORMALS: normocephalic HEAD & SCALP: normocephalic Eye: COMMON NORMALS: Equal, round and reactive pupils present and EOMs intact bilaterally PUPIL: Yes Equal, round and reactive pupils present Chest: COMMONS NORMALS: normal inspection of the chest Resp: COMMON NORMALS: No use of accessory muscles and clear to auscultation bilaterally EFFORT & INSPECTION: Yes tachypneic AUSCULTATION: clear to auscultation bilaterally Cardio: COMMON NORMALS: regular rate RATE: regular rate RHYTHM: abnormal rhythm PERIPHERAL PULSES: radial pulses present GI: COMMON NORMALS: Normal to inspection, nondistended, normoactive bowel sounds present Neuro: SENSORIUM/ORIENTATION: Yes oriented to person, Yes oriented to place and Yes oriented to time Course Consultations: Consultation #1: sarah Time: 03:06 Vital Signs: Vital signs: Vital Signs Pulse Rate 76 08/03/21 03:15 Respiratory Rate 14 08/03/21 03:15 Blood Pressure 86/57 08/03/21 03:15 Pulse Oximetry 97 08/03/21 03:15 MDM - Chest Pain MDM Narrative: Medical decision making narrative: 76-year-old gentleman here with chest discomfort, mainly right-sided. Oxygen saturations are 95% on 5 L. Blood pressures have been soft, currently 96/60. Heart rate 75, sinus with frequent PVCs. His potassium was 2.8. His white blood cell count is 6.2. Hemoglobin is 11. Chest x-ray revealed effusion and infiltrate on the right D-dimer was significant elevated. CTA of the chest showed right-sided effusion and infiltrate, no PE. Troponin was elevated at x0, but did not further elevated 2 hours. His BNP is significantly elevated. This is likely from his history of diastolic dysfunction and pulmonary hypertension. We cannot diurese him, as he is hypotensive. We also can give him a sepsis bolus of fluid, due to the diastolic dysfunction/heart failure his maps have essentially remained above 65. He will be admitted for treatment of pneumonia with effusion. Lab Data: Labs: Lab Results 11/08/03/21 08/03/21 00:07 00:07 00:07 WBC Cancelled Corrected WBC Cancelled RBC Cancelled Hgb Cancelled Hct Cancelled MCV Cancelled MCH Cancelled MCHC Cancelled RDW Cancelled Plt Count Cancelled MPV Cancelled Gran % Cancelled Neut % (Auto) Cancelled Lymph % (Auto) Cancelled [place] % (Auto) Cancelled Eos % (Auto) Cancelled Baso % (Auto) Cancelled Neut # (Auto) Cancelled Lymph # (Auto) Cancelled [place] # (Auto) Cancelled Eos # (Auto) Cancelled Baso # (Auto) Cancelled Absolute Gran (aut o) Cancelled Nucleated RBC % (a uto) Cancelled Nucleated RBCs # Cancelled PT Cancelled INR Cancelled APTT Cancelled D-Dimer Cancelled Specimen Type Sample Site ABG pH ABG pCO2 ABG pO2 ABG HCO3 ABG Base Excess Ish Test Hematocrit O2 Delivery Device O2 Liters/Min Rug Hooker ID Sodium 131 mmol/L L mmol /L (136-145) Potassium 2.8 mmol/L L* mmo l/L (3.5-5.1) Chloride 86 mmol/L L mmol/ L (98-107) Carbon Dioxide 33 mmol/L H mmol/ L (22-29) Anion Gap 14.8 (5-19) BUN 21 mg/dL mg/dL (8-23) Creatinine 0.7 mg/dL mg/dL (0.7-1.2) GFR Calculation Not Reportable Glucose 109 mg/dL mg/dL (65-115) Calculated Osmolal ity 276 mOsm/kg L mOs m/kg (285-295) Lactate Calcium 8.6 mg/dL mg/dL (8.5-10.5) Total Bilirubin 0.8 mg/dL mg/dL (0.15-1.2) AST 20 U/L U/L (0-40) ALT 11 U/L U/L (0-41) Alkaline Phosphata se 156 IU/L H IU/L (40-130) Creatine Kinase 47 U/L U/L (39-308) Troponin T Baselin e Troponin T 120 Min [place] Troponin T NT-Pro-B Natriuret Pep 87892 pg/mL H pg/ mL (0-450) Total Protein 7.2 g/dL g/dL (6.6-8.7) Albumin 3.1 g/dL L g/dL (3.5-5.2) Globulin 4.1 g/dL g/dL (1.3-4.6) Urine Color Urine Appearance Urine pH Ur Specific Gravit y Urine Protein Urine Glucose (UA) Urine Ketones Urine Blood Urine Nitrate Urine Bilirubin Urine Urobilinogen Ur Leukocyte Monika ase Urine RBC Urine WBC Ur Squamous Epith Cells Amorphous Sediment Urine Bacteria 08/03/21 08/03/21 08/03/21 00:07 00:34 00:34 WBC 6.2 10^3/uL 10^3/ uL (4.0-10.0) Corrected WBC RBC 4.12 10^6/uL 10^6 /uL (4.1-5.3) Hgb 11.0 g/dL L g/dL (11.7-16.6) Hct 34.9 % L % (42.0-52.0) MCV 84.7 fl fl (80-94) MCH 26.7 pg L pg (28.0-34.0) MCHC 31.5 g/dL g/dL (30.0-36.0) RDW 15.7 % H % (12.1-15.1) Plt Count 143 10^3/cmm 10^3 /cmm (130-400) MPV 9.9 fL fL (7.4-10.4) Gran % Neut % (Auto) 81.8 % % Lymph % (Auto) 8.2 % % [place] % (Auto) 8.1 % % Eos % (Auto) 1.1 % % Baso % (Auto) 0.5 % % Neut # (Auto) 5.07 10^3/uL 10^3 /uL (1.8-7.7) Lymph # (Auto) 0.5 10^3/uL L 10^ 3/uL (0.8-4.8) [place] # (Auto) 0.5 10^3/uL 10^3/ uL (0.2-0.9) Eos # (Auto) 0.1 10^3/uL 10^3/ uL (0.0-0.8) Baso # (Auto) 0.0 10^3/uL 10^3/ uL (0.0-0.1) Absolute Gran (aut o) Nucleated RBC % (a uto) 0 % % Nucleated RBCs # 0.0 /100WBC /100W BC PT INR APTT D-Dimer Specimen Type Sample Site ABG pH ABG pCO2 ABG pO2 ABG HCO3 ABG Base Excess Ish Test Hematocrit O2 Delivery Device O2 Liters/Min Rug Hooker ID Sodium Potassium Chloride Carbon Dioxide Anion Gap BUN Creatinine GFR Calculation Glucose Calculated Osmolal ity Lactate 1.1 mmol/L mmol/L (0.5-2.2) Calcium Total Bilirubin AST ALT Alkaline Phosphata se Creatine Kinase Troponin T Baselin e 29 ng/L H ng/L (0-15) Troponin T 120 Min [place] Troponin T NT-Pro-B Natriuret Pep Total Protein Albumin Globulin Urine Color Urine Appearance Urine pH Ur Specific Gravit y Urine Protein Urine Glucose (UA) Urine Ketones Urine Blood Urine Nitrate Urine Bilirubin Urine Urobilinogen Ur Leukocyte Monika ase Urine RBC Urine WBC Ur Squamous Epith Cells Amorphous Sediment Urine Bacteria 08/03/21 08/03/21 08/03/21 00:34 00:44 00:48 WBC Corrected WBC RBC Hgb Hct MCV MCH MCHC RDW Plt Count MPV Gran % Neut % (Auto) Lymph % (Auto) [place] % (Auto) Eos % (Auto) Baso % (Auto) Neut # (Auto) Lymph # (Auto) [place] # (Auto) Eos # (Auto) Baso # (Auto) Absolute Gran (aut o) Nucleated RBC % (a uto) Nucleated RBCs # PT 15.70 SECONDS H S ECONDS (12.1-14.9) INR 1.21 H (0.8-1.2) APTT 36.7 SECONDS SECO NDS (23.9-36.7) D-Dimer 2.64 ug/mIFEU H u g/mIFEU (0-0.59) Specimen Type Arterial Sample Site Radial, left ABG pH 7.49 H (7.35-7.45) ABG pCO2 48.4 mmHg H mmHg (35-45) ABG pO2 107.0 mmHg H mmHg (80.0-100.0) ABG HCO3 36.8 mmol/L H mmo l/L (22-26) ABG Base Excess 11.9 mmol/L H mmo l/L (-2.0-2.0) Ish Test Pos Hematocrit 35.0 % L % (42-52) O2 Delivery Device Nc O2 Liters/Min 4.0 % % Rug Hooker ID [id number] Sodium Potassium Chloride Carbon Dioxide Anion Gap BUN Creatinine GFR Calculation Glucose Calculated Osmolal ity Lactate Calcium Total Bilirubin AST ALT Alkaline Phosphata se Creatine Kinase Troponin T Baselin e Troponin T 120 Min [place] Troponin T NT-Pro-B Natriuret Pep Total Protein Albumin Globulin Urine Color Yellow (Yellow) Urine Appearance Clear (CLEAR) Urine pH 6 (5-7) Ur Specific Gravit y 1.016 (1.005-1.030) Urine Protein Trace (Negative) Urine Glucose (UA) Norm (Normal) Urine Ketones Negative (Negative) Urine Blood 3+ H (Negative) Urine Nitrate Positive H (Negative) Urine Bilirubin Neg (Negative) Urine Urobilinogen Norm mg/dL mg/dL (Negative) Ur Leukocyte Monika ase 2+ H (Negative) Urine RBC 0-4 /hpf H /hpf (0-2) Urine WBC 15-25 /hpf H /hpf (0-5) Ur Squamous Epith Cells 0-4 /hpf H /hpf (0-5) Amorphous Sediment 1+ /hpf /hpf Urine Bacteria 2+ /hpf H /hpf (NONE) 08/03/21 02:21 WBC Corrected WBC RBC Hgb Hct MCV MCH MCHC RDW Plt Count MPV Gran % Neut % (Auto) Lymph % (Auto) [place] % (Auto) Eos % (Auto) Baso % (Auto) Neut # (Auto) Lymph # (Auto) [place] # (Auto) Eos # (Auto) Baso # (Auto) Absolute Gran (aut o) Nucleated RBC % (a uto) Nucleated RBCs # PT INR APTT D-Dimer Specimen Type Sample Site ABG pH ABG pCO2 ABG pO2 ABG HCO3 ABG Base Excess Ish Test Hematocrit O2 Delivery Device O2 Liters/Min Rug Hooker ID Sodium Potassium Chloride Carbon Dioxide Anion Gap BUN Creatinine GFR Calculation Glucose Calculated Osmolal ity Lactate Calcium Total Bilirubin AST ALT Alkaline Phosphata se Creatine Kinase Troponin T Baselin e Troponin T 120 Min [place] 26.50 ng/L H ng/L (0-15) Delta Troponin T -2.50 ABS# L ABS# (0-10) NT-Pro-B Natriuret Pep Total Protein Albumin Globulin Urine Color Urine Appearance Urine pH Ur Specific Gravit y Urine Protein Urine Glucose (UA) Urine Ketones Urine Blood Urine Nitrate Urine Bilirubin Urine Urobilinogen Ur Leukocyte Monika ase Urine RBC Urine WBC Ur Squamous Epith Cells Amorphous Sediment Urine Bacteria Discharge Plan Discharge Patient Disposition: Admitted As Inpatient Admit Provider: Brett Granados Clinical Impression: Respiratory failure, CHF (congestive heart failure), Pneumonia, Pleural effusion Condition: Stable Coding Level of Care Code ED Personalized Living Assistant for Chg Fwd Exam Detailed
--- NOTE | 2021-08-03 04:03 | PM.HP ---
Providers/Chief Complaint Admitting Physician: Brett Granados Primary Care Provider: Rhys Ramos MD Chief Complaint: CHEST PAIN History of Present Illness Ilan Bhatia is a 76 year old male with remote history of right lung cancer, status post lobectomy and chemotherapy is, currently in remission, diastolic congestive heart failure, pulmonary arterial hypertension, hypothyroidism, urinary retention, hypertension who is presenting to emergency room with complaints of increasing cough with yellow mucus, increasing shortness of breath, right-sided chest pain. The symptoms started several days ago and progressively got worse. Shortness of breath is moderate in intensity. Reports improvement with supplemental oxygen. The patient reports history of recurrent right-sided pleural effusion requiring thoracentesis.last one was a year ago. Chest x-ray revealed large right-sided pleural effusion with associated infiltrate. The patient denies chills, nausea or vomiting, diarrhea. Review of Systems General: Reports: 10 or more systems reviewed and unremarkable except in HPI and below Medications/Allergies Home Medications Medication Instructions Recorded Confirmed Last Taken Type nystatin 100,000 unit/mL oral 1 ml PO QID PRN ml 11/07/19 07/26/21 07/06/20 History suspension valacyclovir 500 mg tablet 500 mg PO DAILY 11/07/19 07/26/21 07/06/20 History Trelegy Ellipta 1 inh INHALATION DAILY 11/24/19 07/26/21 07/06/20 History cetirizine 10 mg tablet 10 mg PO DAILY tab 08/15/20 07/26/21 Unknown History furosemide 40 mg tablet 40 mg PO DAILY #90 tab 08/15/20 07/26/21 Unknown Rx guaifenesin 600 mg tablet, 600 mg PO Q12H PRN 08/15/20 07/26/21 Unknown History extended release 12 hr levothyroxine 100 mcg tablet 100 mcg PO DAILY tab 08/15/20 07/26/21 Unknown History potassium chloride 20 mEq/15 mL 20 meq PO DAILY #450 ml 08/15/20 07/26/21 Unknown Rx oral liquid azithromycin 250 mg tablet 250 mg PO .COMPLEX 30 Days #15 tab 05/22/21 07/26/21 Unknown Rx sildenafil (pulm.hypertension) 20 See Rx Instructions .ROUTE 05/28/21 07/26/21 Unknown Rx mg tablet .COMPLEX #270 tab albuterol sulfate 5 mg INHALATION Q4H PRN ml 07/26/21 07/26/21 Unknown History metolazone 2.5 mg tablet 2.5 mg PO DAILY 7 Days #7 tab 07/26/21 07/26/21 Unknown Rx phenazopyridine [Pyridium] 100 mg PO Q8H #6 tab 07/30/21 Unknown Rx tamsulosin [Flomax] 0.4 mg PO .qhs #20 cap 07/30/21 Unknown Rx Allergies Allergy/AdvReac Type Severity Reaction Status Date / Time vancomycin Allergy ALGY-Anaphy Verified 08/02/21 23:28 laxis PFSH Acute PFSH: Medical History (Updated 08/03/21 @ 04:06 by Brett Granados) AML (acute myeloblastic leukemia) Aortic valvar stenosis CHF (congestive heart failure) History of DVT (deep vein thrombosis) HTN (hypertension) Pulmonary hyperinflation Surgical History History of bone marrow biopsy S/P carpal tunnel release left S/P cholecystectomy S/P knee surgery left S/P thoracotomy Family History Brother CAD (coronary artery disease) Cancer Social History Quit status (tobacco): has quit using tobacco Year quit tobacco: 1987 - PD x 30 Years Second hand smoke exposure: No Smoking risk assessment/counseling performed?: Yes Alcohol intake: never Lives independently: Yes Household members: spouse Marital status: service: Yes Current occupational status: retired Pets and animals: Yes Pets & animals: cat(s) Pets & animal details: outside History of recent travel: No Current gender identity: Male Vitals/I&O/Wt Last Vital Signs Pulse 76 08/03/21 03:15 Resp 14 08/03/21 03:15 BP 86/57 08/03/21 03:15 Pulse Ox 97 08/03/21 03:15 08/02/21 08/02/21 08/03/21 14:59 22:59 06:59 Intake Total 150 / 150 Balance 150 / 150 Weight last 48 hrs Weight 81.647 kg Physical Exam Narrative: EXAM NARRATIVE: The patient is awake alert oriented. No acute distress. Mood and affect are appropriate. Responses are adequate. Skin warm and dry. Dry mucous membranes Eyes PERRL, extraocular muscles are intact Normal speech. Neck supple. No JVD Lungs: Decreased breath sounds and crackles on the right side. The left side clear. No respiratory distress Heart S1, S2, regular Abdomen soft, nontender, bowel sounds are present Extremities no edema cyanosis or calf tenderness bilaterally Data : 08/03/21 00:34 11 00:07 Other Labs: Laboratory Results WBC 6.2 10^3/uL (4.0-10.0) 08/03/21 00:34 Corrected WBC Cancelled 08/03/21 00:07 RBC 4.12 10^6/uL (4.1-5.3) 08/03/21 00:34 Hgb 11.0 g/dL (11.7-16.6) L 08/03/21 00:34 Hct 34.9 % (42.0-52.0) L 08/03/21 00:34 MCV 84.7 fl (80-94) 08/03/21 00:34 MCH 26.7 pg (28.0-34.0) L 08/03/21 00:34 MCHC 31.5 g/dL (30.0-36.0) 08/03/21 00:34 RDW 15.7 % (12.1-15.1) H 08/03/21 00:34 Plt Count 143 10^3/cmm (130-400) 08/03/21 00:34 MPV 9.9 fL (7.4-10.4) 08/03/21 00:34 Gran % Cancelled 08/03/21 00:07 Neut % (Auto) 81.8 % 08/03/21 00:34 Lymph % (Auto) 8.2 % 08/03/21 00:34 [place] % (Auto) 8.1 % 08/03/21 00:34 Eos % (Auto) 1.1 % 08/03/21 00:34 Baso % (Auto) 0.5 % 08/03/21 00:34 Neut # (Auto) 5.07 10^3/uL (1.8-7.7) 08/03/21 00:34 Lymph # (Auto) 0.5 10^3/uL (0.8-4.8) L 08/03/21 00:34 [place] # (Auto) 0.5 10^3/uL (0.2-0.9) 08/03/21 00:34 Eos # (Auto) 0.1 10^3/uL (0.0-0.8) 08/03/21 00:34 Baso # (Auto) 0.0 10^3/uL (0.0-0.1) 08/03/21 00:34 Absolute Gran (auto) Cancelled 08/03/21 00:07 Nucleated RBC % (auto) 0 % 08/03/21 00:34 Nucleated RBCs # 0.0 /100WBC 08/03/21 00:34 PT 15.70 SECONDS (12.1-14.9) H 08/03/21 00:34 INR 1.21 (0.8-1.2) H 08/03/21 00:34 APTT 36.7 SECONDS (23.9-36.7) 08/03/21 00:34 D-Dimer 2.64 ug/mIFEU (0-0.59) H 08/03/21 00:34 Specimen Type Arterial 08/03/21 00:48 Sample Site Radial, left 08/03/21 00:48 ABG pH 7.49 (7.35-7.45) H 08/03/21 00:48 ABG pCO2 48.4 mmHg (35-45) H 08/03/21 00:48 ABG pO2 107.0 mmHg (80.0-100.0) H 08/03/21 00:48 ABG HCO3 36.8 mmol/L (22-26) H 08/03/21 00:48 ABG Base Excess 11.9 mmol/L (-2.0-2.0) H 08/03/21 00:48 Ish Test Pos 08/03/21 00:48 Hematocrit 35.0 % (42-52) L 08/03/21 00:48 O2 Delivery Device Nc 08/03/21 00:48 O2 Liters/Min 4.0 % 08/03/21 00:48 Chick Room Supervisor ID [id number] 08/03/21 00:48 Sodium 131 mmol/L (136-145) L 08/03/21 00:07 Potassium 2.8 mmol/L (3.5-5.1) L* 08/03/21 00:07 Chloride 86 mmol/L (98-107) L 08/03/21 00:07 Carbon Dioxide 33 mmol/L (22-29) H 08/03/21 00:07 Anion Gap 14.8 (5-19) 08/03/21 00:07 BUN 21 mg/dL (8-23) 08/03/21 00:07 Creatinine 0.7 mg/dL (0.7-1.2) 08/03/21 00:07 GFR Calculation Not Reportable 08/03/21 00:07 Glucose 109 mg/dL (65-115) 08/03/21 00:07 Calculated Osmolality 276 mOsm/kg (285-295) L 08/03/21 00:07 Lactate 1.1 mmol/L (0.5-2.2) 08/03/21 00:34 Calcium 8.6 mg/dL (8.5-10.5) 08/03/21 00:07 Total Bilirubin 0.8 mg/dL (0.15-1.2) 08/03/21 00:07 AST 20 U/L (0-40) 08/03/21 00:07 ALT 11 U/L (0-41) 08/03/21 00:07 Alkaline Phosphatase 156 IU/L (40-130) H 08/03/21 00:07 Creatine Kinase 47 U/L (39-308) 08/03/21 00:07 Troponin T Baseline 29 ng/L (0-15) H 08/03/21 00:07 Troponin T 120 Minute 26.50 ng/L (0-15) H 08/03/21 02:21 Delta Troponin T -2.50 ABS# (0-10) L 08/03/21 02:21 NT-Pro-B Natriuret Pep 05314 pg/mL (0-450) H 08/03/21 00:07 Total Protein 7.2 g/dL (6.6-8.7) 08/03/21 00:07 Albumin 3.1 g/dL (3.5-5.2) L 08/03/21 00:07 Globulin 4.1 g/dL (1.3-4.6) 08/03/21 00:07 Urine Color Yellow (Yellow) 08/03/21 00:44 Urine Appearance Clear (CLEAR) 08/03/21 00:44 Urine pH 6 (5-7) 08/03/21 00:44 Ur Specific [place] 1.016 (1.005-1.030) 08/03/21 00:44 Urine Protein Trace (Negative) 08/03/21 00:44 Urine Glucose (UA) Norm (Normal) 08/03/21 00:44 Urine Ketones Negative (Negative) 08/03/21 00:44 Urine Blood 3+ (Negative) H 08/03/21 00:44 Urine Nitrate Positive (Negative) H 08/03/21 00:44 Urine Bilirubin Neg (Negative) 08/03/21 00:44 Urine Urobilinogen Norm mg/dL (Negative) 08/03/21 00:44 Ur Leukocyte Esterase 2+ (Negative) H 08/03/21 00:44 Urine RBC 0-4 /hpf (0-2) H 08/03/21 00:44 Urine WBC 15-25 /hpf (0-5) H 08/03/21 00:44 Ur Squamous Epith Cells 0-4 /hpf (0-5) H 08/03/21 00:44 Amorphous Sediment 1+ /hpf 08/03/21 00:44 Urine Bacteria 2+ /hpf (NONE) H 08/03/21 00:44 Impressions Chest X-Ray 08/02/21 23:28 IMPRESSION: 1. Volume loss seen within the right hemithorax. 2. Probable moderate right pleural effusion with superimposed atelectasis versus infiltrates 3. Indistinct pulmonary vasculature and diffuse increased interstitial markings seen in the left hemithorax, findings that may represent pulmonary edema. Superimposed interstitial pneumonia cannot be excluded as well. Radiation Dose CTDIVOL = (mGy): DLP = (mGy-cm) Chest CTA 08/03/21 01:39 IMPRESSION: 1. There is no evidence for pulmonary emboli. 2. Status post partial right pneumonectomy . Prominent right pleural effusion is seen with superimposing volume loss within the right upper lobe, coarse reticular opacities and consolidation present. 3. Centrilobular emphysema, mild bronchiectasis and pulmonary fibrosis present within the left lung. Some patchy opacities are present in the left posterior costophrenic recess and some strandy opacities are seen in the infrahilar region compatible with atelectasis. 4. Nodular contour of the liver compatible with cirrhosis. Radiation Dose CTDIVOL = (mGy): DLP = 620.7 (mGy-cm) Micro: Microbiology 08/03/21 00:34 Blood Culture - Preliminary Blood SPECIMEN COLLECTED 08/03/21 00:34 Blood Culture - Preliminary Blood SPECIMEN COLLECTED A&P Assessment and plan (1) Recurrent right pleural effusion: Status: Acute (2) Pneumonia: Status: Acute (3) Acute hypokalemia: Status: Acute (4) History of lung cancer: Status: Acute (5) Pulmonary hypertension: Status: Acute (6) HTN (hypertension): Status: Acute Qualifiers: Hypertension type: essential hypertension Qualified Code(s): I10 - Essential (primary) hypertension (7) CHF (congestive heart failure): Status: Acute Qualifiers: Heart failure type: unspecified Heart failure chronicity: unspecified Qualified Code(s): I50.9 - Heart failure, unspecified (8) Anemia: Status: Acute Additional A&P Information 76 year old male with remote history of right lung cancer, status post lobectomy and chemotherapy is, currently in remission, diastolic congestive heart failure, pulmonary arterial hypertension, hypothyroidism, urinary retention, hypertension who is presenting to emergency room with complaints of increasing cough with yellow mucus, increasing shortness of breath, right-sided chest pain. The patient reports history of recurrent pleural effusions and paracentesis. Last one was a year ago. Today again he was found to have large right pleural effusion with associated infiltrate. Recurrent right-sided pleural effusion with associated infiltrate, possible pneumonia versus recurrence of the tumor. We will treat with antibiotics. Will order procalcitonin. If it is negative will consider stopping antibiotics. I am ordering thoracentesis for the morning. Will analyze pleural fluid including cytology. Will discuss treatment options after we have more information available. Acute hypoxia/hypoxic respiratory failure secondary to above. Supplemental oxygen. Mild hypotension. Will hydrate very gently to avoid fluid overload. The patient has history of diastolic congestive heart failure. History of CHF. Currently stable. Anemia probably secondary to chronic disease. Will monitor. Hypokalemia. Replacement is ordered in the emergency room. We will continue monitoring electrolytes and replace as needed. Recently diagnosed urinary retention. The patient has indwelling Martínez catheter. DVT prophylaxis. SCDs and teds. Will consider anticoagulation after the procedure. CODE STATUS. He wants to be full code. The plan of care was discussed with the patient and the family. They verbalized understanding and agreement. Attestations Medical Necessity Statement*: Based on my assessment of patient's current condition, diagnosis and plan of care I expect that the patient will spend more than 2 midnights in the hospital. Coding Level of Care Code Acute Telecom Coordinator for Brigidag Fwd Diagnoses Recurrent right pleural effusion J90 Pneumonia J18.9 Acute hypokalemia E87.6 History of lung cancer Z85.118 Pulmonary hypertension I27.20 HTN (hypertension) I10 Hypertension type: essential hypertension CHF (congestive heart failure) I50.9 Heart failure type: unspecified Heart failure chronicity: unspecified Anemia D64.9
--- NOTE | 2021-08-03 05:28 | ECG_ITS ---
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 Measurements Intervals [place] Rate: 80 P: 52 ME: 214 QRS: 200 QRSD: 134 T: 38 QT: 413 QTc: 477 Interpretive Statements SINUS RHYTHM WITH FIRST DEGREE AV BLOCK WITH OCCASIONAL VENTRICULAR PREMATURE COMPLEXES INDETERMINATE AXIS RIGHT BUNDLE BRANCH BLOCK [120+ ms QRS DURATION, UPRIGHT V1, 40+ ms S IN I/aVL/V4/V5/V6] Compared to ECG 08/03/2021 02:30:35 First degree AV block now present Indeterminate axis now present Right-axis deviation no longer present Electronically Signed On 08-04-2021 13:26:59 SWIMMING COACH OR INSTRUCTOR by Aydee Rutherford M.D. [id number]
[2021-08-03] MEDS: cefTRIAXone 1,000 MG in sodium chloride 0.9% (plus) 50 ML 100 MG IV ×2 (06:41→21:08)
[2021-08-03] MEDS: sodium chloride 0.9% 1,000 ML 75 ML IV (06:42)
[2021-08-03 07:14] LABS: Troponin 5 6HR 26.89 ng/L (0-15)
[2021-08-03 07:18] LABS: Troponin 5 6HR Delta -2.11 ng/L (0-12)
[2021-08-03 07:22] LABS: Procalcitonin 0.23 ng/mL (0-0.5)
[2021-08-03] MEDS: valACYclovir 1,000 mg Tablet 500 MG PO (09:00)
[2021-08-03] MEDS: doxycycline 100 mg Tablet PO ×2 (09:01→17:32)
[2021-08-03] MEDS: levothyroxine 100 mcg Tablet PO (09:01)
[2021-08-03] MEDS: FUROsemide 40 mg Tablet PO (09:08)
[2021-08-03] MEDS: potassium chloride ER 20 mEq Tablet 40 MEQ PO (09:49)
--- NOTE | 2021-08-03 16:56 | P.PN_ITS ---
Subjective Subjective: Interval history: Patient was seen and examined this morning, no acute events overnight, currently saturating well on 4 to 5 LS oxygen via nasal cannula. Medications: Reviewed: Yes Vitals/I&O/Wt Last Vital Signs Temp 97.5 F L 08/03/21 15:34 Pulse 76 08/03/21 15:34 Resp 17 08/03/21 15:34 BP 95/59 08/03/21 15:34 Pulse Ox 97 08/03/21 15:34 08/03/21 08/03/21 08/03/21 06:59 14:59 22:59 Intake Total 500 / 500 170 / 170 Output Total 1325 / 1325 Balance 500 / 500 170 / 170 -1325 / -1155 Weight last 48 hrs Weight 81.647 kg Physical Exam Const: COMMON NORMALS: patient oriented x3 HENMT: COMMON NORMALS: normocephalic and atraumatic HEAD & SCALP: normocephalic and atraumatic Resp: OTHER: Coarse breath sounds bilaterally Cardio: COMMON NORMALS: regular rate, regular rhythm, S1 normal heart sound present, S2 normal heart sound present, No gallops present (Cardio), No murmurs present (Cardio), No rub (Cardio) and Peripheral pulses 2+ throughout RATE: regular rate RHYTHM: regular rhythm HEART SOUNDS: S1 normal heart sound present and S2 normal heart sound present PERIPHERAL PULSES: Peripheral pulses 2+ throughout GI: COMMON NORMALS: Normal to inspection, nondistended, normoactive bowel sounds present, Soft to palpation, non-tender, No hepatosplenomegaly present and no masses AUSCULTATION: Yes normoactive bowel sounds PALPATION: Yes Soft to palpation and Yes No hepatosplenomegaly present RECTAL EXAM: Yes deferred Extremity: COMMON NORMALS: no clubbing, cyanosis or edema and no pedal edema Neuro: COMMON NORMALS: patient oriented x3 Data : 08/03/21 00:34 08/03/21 00:07 Micro: Microbiology 08/03/21 00:34 Blood Culture - Preliminary Blood SPECIMEN COLLECTED 08/03/21 00:34 Blood Culture - Preliminary Blood SPECIMEN COLLECTED A&P Assessment and plan (1) Pneumonia: Status: Acute (2) Recurrent right pleural effusion: Status: Acute (3) Acute hypokalemia: Status: Acute (4) History of lung cancer: Status: Acute (5) Pulmonary hypertension: Status: Acute (6) HTN (hypertension): Status: Acute Qualifiers: Hypertension type: essential hypertension Qualified Code(s): I10 - Essential (primary) hypertension (7) CHF (congestive heart failure): Status: Acute Qualifiers: Heart failure chronicity: unspecified Heart failure type: unspecified Qualified Code(s): I50.9 - Heart failure, unspecified (8) Anemia: Status: Acute Additional A&P Information 76 year old male with remote history of right lung cancer, status post lobectomy and chemotherapy is, currently in remission, diastolic congestive heart failure, pulmonary arterial hypertension, hypothyroidism, urinary retention, hypertension who is presenting to emergency room with complaints of increasing cough with yellow mucus, increasing shortness of breath, right-sided chest pain. The patient reports history of recurrent pleural effusions and paracentesis. Last one was a year ago. Today again he was found to have large right pleural effusion with associated infiltrate. Recurrent right-sided pleural effusion with associated infiltrate, possible pneumonia versus recurrence of the tumor. We will treat with antibiotics. Will order procalcitonin. If it is negative will consider stopping antibiotics. I am ordering thoracentesis for the morning. Will analyze pleural fluid including cytology. Will discuss treatment options after we have more information available. Acute hypoxia/hypoxic respiratory failure secondary to above. Supplemental oxygen. Mild hypotension. Will hydrate very gently to avoid fluid overload. The patient has history of diastolic congestive heart failure. History of CHF. Currently stable. Anemia probably secondary to chronic disease. Will monitor. Hypokalemia. Replacement is ordered in the emergency room. We will continue monitoring electrolytes and replace as needed. Recently diagnosed urinary retention. The patient has indwelling Martínez cath eter. DVT prophylaxis. SCDs and teds. Will consider anticoagulation after the procedure. CODE STATUS. He wants to be full code. The plan of care was discussed with the patient and the family. They verbalized understanding and agreement. Attestations Medical Necessity Statement*: Patient is to be in hospital for management of above -defined problems Coding Level of Care Code Acute Informatics Physician for [facility] Diagnoses Pneumonia J18.9 Recurrent right pleural effusion J90 Acute hypokalemia E87.6 History of lung cancer Z85.118 Pulmonary hypertension I27.20 HTN (hypertension) I10 Hypertension type: essential hypertension CHF (congestive heart failure) I50.9 Heart failure chronicity: unspecified Heart failure type: unspecified Anemia D64.9
--- NOTE | 2021-08-03 20:37 | PC.NURSE ---
i reported low temp 97.5 to nurse
[2021-08-03] MEDS: azithromycin 500 MG in sodium chloride 0.9% 250 ML 250 MG IV (21:56)
[2021-08-04] VITALS (7 sets, daily range): BP systolic 91–104; BP diastolic 53–70; PULSE 76–101; RESP 16–18; TEMP 36.6–36.7; O2SAT 90–100
--- NOTE | 2021-08-04 03:50 | US_ITS ---
WS: [id number] INDICATION: Pleural effusion TECHNIQUE: Ultrasound chest FINDINGS: Ultrasound bilateral chest. No drainable free fluid. US/US chest 72796 IMPRESSION: No drainable free fluid. Compressive atelectasis and airspace conso lidation right lung.
[2021-08-04 05:46] LABS: Basophils % 0.6 %; Eosinophils # 0.1 10^3/uL (0.0-0.8); Eosinophils % 0.9 %; Hematocrit 39.7 % (42.0-52.0); Hemoglobin 12.2 g/dL (11.7-16.6); Lymphocytes # 0.7 10^3/uL (0.8-4.8); Lymphocytes % 10.9 %; Mean Corpuscular HGB Conc 30.7 g/dL (30.0-36.0); Mean Corpuscular Hemoglobin 27.2 pg (28.0-34.0); Mean Corpuscular Volume 88.6 fl (80-94); Mean Platelet Volume 9.5 fL (7.4-10.4); Monocytes # 0.7 10^3/uL (0.2-0.9); Monocytes % 11.2 %; Neutrophils # 4.87 10^3/uL (1.8-7.7); Neutrophils % 75.9 %; Nucleated Red Blood Cells % 0 %; Platelet Count 149 10^3/cmm (130-400); Red Blood Count 4.48 10^6/uL (4.1-5.3); Red Cell Distribution Width 15.9 % (12.1-15.1); White Blood Count 6.4 10^3/uL (4.0-10.0)
[2021-08-04 06:10] LABS: Anion Gap 12.5 (5-19); Blood Urea Nitrogen 18 mg/dL (8-23); Carbon Dioxide 33 mmol/L (22-29); Chloride 94 mmol/L (98-107); Glucose 96 mg/dL (65-115); Magnesium 1.6 mg/dL (1.7-2.3); Osmolality Calculated 284 mOsm/kg (285-295); Potassium 3.5 mmol/L (3.5-5.1); Sodium 136 mmol/L (136-145)
[2021-08-04] MEDS: FUROsemide 20 mg Tablet PO ×2 (09:30→17:34)
[2021-08-04] MEDS: levothyroxine 100 mcg Tablet PO (09:30)
[2021-08-04] MEDS: valACYclovir 1,000 mg Tablet 500 MG PO (09:30)
[2021-08-04] MEDS: potassium chloride ER 20 mEq Tablet 40 MEQ PO (09:32)
--- NOTE | 2021-08-04 10:40 | PM.PN ---
Subjective Subjective: Interval history: Patient was seen and examined this morning, no acute events overnight, ultrasound chest done for evaluation of pleural effusion has failed to show any significant pocket. Medications: Reviewed: Yes Vitals/I&O/Wt Last Vital Signs Temp 97.9 F 08/04/21 07:25 Pulse 80 08/04/21 09:45 Resp 18 08/04/21 09:45 BP 99/53 08/04/21 07:25 Pulse Ox 94 08/04/21 09:45 08/03/21 08/04/21 08/04/21 22:59 06:59 14:59 Intake Total 1170 / 1340 490 / 1830 120 / 120 Output Total 1325 / 1325 625 / 625 Balance -155 / 15 490 / 505 -505 / -505 Weight last 48 hrs Weight 81.647 kg Physical Exam Const: COMMON NORMALS: patient oriented x3 HENMT: COMMON NORMALS: normocephalic and atraumatic HEAD & SCALP: normocephalic and atraumatic Resp: COMMON NORMALS: normal respiratory effort, No use of accessory muscles and clear to auscultation bilaterally EFFORT & INSPECTION: Yes able to speak in complete sentences and Yes symmetric chest movement AUSCULTATION: clear to auscultation bilaterally Cardio: COMMON NORMALS: regular rate, regular rhythm, S1 normal heart sound present, S2 normal heart sound present, No gallops present (Cardio), No murmurs present (Cardio), No rub (Cardio) and Peripheral pulses 2+ throughout RATE: regular rate RHYTHM: regular rhythm HEART SOUNDS: S1 normal heart sound present and S2 normal heart sound present PERIPHERAL PULSES: Peripheral pulses 2+ throughout GI: COMMON NORMALS: Normal to inspection, nondistended, normoactive bowel sounds present, Soft to palpation, non-tender, No hepatosplenomegaly present and no masses AUSCULTATION: Yes normoactive bowel sounds PALPATION: Yes Soft to palpation and Yes No hepatosplenomegaly present RECTAL EXAM: Yes deferred Extremity: COMMON NORMALS: no clubbing, cyanosis or edema and no pedal edema Neuro: COMMON NORMALS: patient oriented x3 Urinary Catheter Management^: Martínez: Cath Placed During This Visit: no Reason for Continuing Indwelling Catheter: Acute Urinary Retention or Obstruction Data : 08/04/21 05:18 08/04/21 05:18 Micro: Microbiology 08/03/21 00:44 Urine Culture - Preliminary Urine Catheterized Gram Negative Rods 08/03/21 00:34 Blood Culture - Preliminary Blood NEGATIVE TO DATE 08/03/21 00:34 Blood Culture - Preliminary Blood NEGATIVE TO DATE A&P Assessment and plan (1) Recurrent right pleural effusion: Patient has history of recurrent pleural effusion, and had a thoracentesis in the past. ultrasound chest done for evaluation of pleural effusion has failed to show any significant pocket. Patient is due for evaluation for right pleural effusion by radiologist tomorrow in the morning. Urine Legionella antigen Urine bacterial AG panel MRSA PCR Continue Lasix 40 mg p.o. daily Continue ceftriaxone azithromycin for pneumonia. Albuterol sulfate inhaler every 4 hours PRN Continue trilogy inhaler Status: Acute (2) Pneumonia: Status: Acute (3) Acute hypokalemia: Status: Acute (4) History of lung cancer: Status: Acute (5) Pulmonary hypertension: Status: Acute (6) HTN (hypertension): Status: Acute Qualifiers: Hypertension type: essential hypertension Qualified Code(s): I10 - Essential (primary) hypertension (7) CHF (congestive heart failure): Status: Acute Qualifiers: Heart failure chronicity: unspecified Heart failure type: unspecified Qualified Code(s): I50.9 - Heart failure, unspecified (8) Anemia: Status: Acute Additional A&P Information 76 year old male with remote history of right lung cancer, status post lobectomy and chemotherapy is, currently in remission, diastolic congestive heart failure, pulmonary arterial hypertension, hypothyroidism, urinary retention, hypertension who is presenting to emergency room with complaints of increasing cough with yellow mucus, increasing shortness of breath, right-sided chest pain. The patient reports history of recurrent pleural effusions and paracentesis. Last one was a year ago. Today again he was found to have large right pleural effusion with associated infiltrate. Recurrent right-sided pleural effusion with associated infiltrate, possible pneumonia versus recurrence of the tumor. We will treat with antibiotics. Will order procalcitonin. If it is negative will consider stopping antibiotics. I am ordering thoracentesis for the morning. Will analyze pleural fluid including cytology. Will discuss treatment options after we have more information available. Acute hypoxia/hypoxic respiratory failure secondary to above. Supplemental oxygen. Mild hypotension. Will hydrate very gently to avoid fluid overload. The patient has history of diastolic congestive heart failure. History of CHF. Currently stable. Anemia probably secondary to chronic disease. Will monitor. Hypokalemia. Replacement is ordered in the emergency room. We will continue monitoring electrolytes and replace as needed. Recently diagnosed urinary retention. The patient has indwelling Martínez catheter. DVT prophylaxis. SCDs and teds. Will consider anticoagulation after the procedure. CODE STATUS. He wants to be full code. The plan of care was discussed with the patient and the family. They verbalized understanding and agreement. Attestations Medical Necessity Statement*: Patient needs to be in hospital for management of pneumonia. Coding Level of Care Code Acute Progress Developer for [facility] Fwd Exam Detailed Diagnoses Recurrent right pleural effusion J90 Pneumonia J18.9 Acute hypokalemia E87.6 History of lung cancer Z85.118 Pulmonary hypertension I27.20 HTN (hypertension) I10 Hypertension type: essential hypertension CHF (congestive heart failure) I50.9 Heart failure chronicity: unspecified Heart failure type: unspecified Anemia D64.9
[2021-08-04] MEDS: magnesium sulfate premix 2 GM/50 ML PIGGYBACK IV (17:33)
[2021-08-04] MEDS: azithromycin 500 MG in sodium chloride 0.9% 250 ML 250 MG IV (20:26)
[2021-08-04] MEDS: cefTRIAXone 1,000 MG in sodium chloride 0.9% (plus) 50 ML 100 MG IV (21:54)
[2021-08-05] VITALS: BP 102/70; PULSE 98; RESP 17; TEMP 36.7; O2SAT 97
[2021-08-05 04:00] VITALS: BP 106/73; PULSE 96; RESP 17; TEMP 36.8; O2SAT 98
[2021-08-05 06:15] LABS: Basophils # 0.1 10^3/uL (0.0-0.1); Basophils % 0.9 %; Eosinophils # 0.1 10^3/uL (0.0-0.8); Eosinophils % 1.6 %; Hematocrit 37.3 % (42.0-52.0); Hemoglobin 11.8 g/dL (11.7-16.6); Lymphocytes # 0.9 10^3/uL (0.8-4.8); Lymphocytes % 16.1 %; Mean Corpuscular HGB Conc 31.6 g/dL (30.0-36.0); Mean Corpuscular Hemoglobin 27.2 pg (28.0-34.0); Mean Corpuscular Volume 85.9 fl (80-94); Mean Platelet Volume 9.5 fL (7.4-10.4); Monocytes # 0.6 10^3/uL (0.2-0.9); Monocytes % 10.2 %; Neutrophils # 4.05 10^3/uL (1.8-7.7); Nucleated Red Blood Cells % 0 %; Platelet Count 166 10^3/cmm (130-400); Red Blood Count 4.34 10^6/uL (4.1-5.3); Red Cell Distribution Width 15.9 % (12.1-15.1); White Blood Count 5.7 10^3/uL (4.0-10.0)
[2021-08-05 06:33] LABS: Anion Gap 9.7 (5-19); Blood Urea Nitrogen 20 mg/dL (8-23); Carbon Dioxide 34 mmol/L (22-29); Chloride 95 mmol/L (98-107); Creatinine Clr Calc Pharmacy 78.3599; Glucose 86 mg/dL (65-115); Osmolality Calculated 282 mOsm/kg (285-295); Potassium 3.7 mmol/L (3.5-5.1); Sodium 135 mmol/L (136-145)
[2021-08-05 07:44] VITALS: BP 90/57; PULSE 74; RESP 18; TEMP 36.7; O2SAT 99
[2021-08-05] MEDS: FUROsemide 40 mg Tablet PO (08:08)
[2021-08-05] MEDS: potassium chloride ER 20 mEq Tablet 40 MEQ PO (08:08)
[2021-08-05] MEDS: levothyroxine 100 mcg Tablet PO (08:08)
[2021-08-05] MEDS: valACYclovir 1,000 mg Tablet 500 MG PO (08:08)
[2021-08-05 12:00] VITALS: BP 99/67; PULSE 78; RESP 18; TEMP 36.7; O2SAT 97
--- NOTE | 2021-08-05 14:10 | P.DS_ITS ---
Discharge Providers Date of Admission: 08/03/21 03:33 Date of Discharge: August 05, 2021 Attending Provider at Admission: Brett Granados Attending Provider at Discharge: Hugh Fu MD Primary Care Provider: Rhys Ramos MD Diagnoses at Discharge Discharge Diagnosis (1) Recurrent right pleural effusion: Status: Acute (2) Pneumonia: Status: Acute (3) Acute hypokalemia: Status: Acute (4) History of lung cancer: Status: Acute (5) Pulmonary hypertension: Status: Acute (6) HTN (hypertension): Status: Acute Qualifiers: Hypertension type: essential hypertension Qualified Code(s): I10 - Essential (primary) hypertension (7) CHF (congestive heart failure): Status: Acute Qualifiers: Heart failure type: unspecified Heart failure chronicity: unspecified Qualified Code(s): I50.9 - Heart failure, unspecified (8) Anemia: Status: Acute Reason for Visit Reason for Visit: CHEST PAIN Hospital Course Hospital Course This is a 76-year-old male with a past medical history of acute myeloid leukemia and lung cancer for which he underwent a right lower lobe lobectomy, also found to have right-sided empyema with right chest tube and antibiotics for 2 weeks, cultures growing staph, with recurrent loculated right pleural effusion, with evidence of trapped lung physiology, history of pulmonary hypertension, on sildenafil, small airway disease who presents to [facility] due to increasing shortness of breath and right-sided chest pain Patient was admitted to [facility] for recurrent right pleural effusion, as above has had a right-sided empyema with right chest tube with antibiotics for 2 weeks, with recurrent loculated right pleural effusion, CT angiogram of the chest Prominent right pleural effusion is seen with superimposing volume loss within the right upper lobe, coarse reticular opacities and consolidation present. Chest ultrasound did not show any drainable fluid, patient was managed with broad spectrum antibiotic therapy, clinically monitored, he clinically improved, discharged on his home 4 L. I discharge patient on Levaquin for 6 remaining days, with close follow-up with pulmonary as outpatient. . Culture showed gram-negative rods on discharge, discharged on Levaquin as above For his chronic urinary retention, initially was managed with a Martínez, passed voiding trials, follow with Dr. Aaron as outpatient Physical Exam Const: COMMON NORMALS: no acute distress and patient oriented x3 Resp: COMMON NORMALS: normal respiratory effort, No retractions, No use of accessory muscles and clear to auscultation bilaterally AUSCULTATION: clear to auscultation bilaterally Cardio: COMMON NORMALS: regular rate, regular rhythm, S1 normal heart sound present and S2 normal heart sound present RATE: regular rate RHYTHM: regular rhythm HEART SOUNDS: S1 normal heart sound present and S2 normal heart sound present GI: COMMON NORMALS: Normal to inspection, nondistended, normoactive bowel sounds present, Soft to palpation and non-tender PALPATION: Yes Soft to palpation Extremity: COMMON NORMALS: no pedal edema Neuro: COMMON NORMALS: patient oriented x3 Psych: COMMON NORMALS: mental status grossly normal Urinary Catheter Management^: Martínez: Cath Placed During This Visit: yes, but has since been removed by the nurse Reason for Continuing Indwelling Catheter: Acute Urinary Retention or Obstruction Date Urinary Catheter Removed: 08/04/21 Time Urinary Catheter Discontinued: 14:20 Discharge Data Data Completed and Pending: Completed Studies During Hospitalization Category Date Time Status CT angio chest PE protcl [id number] Urge nt Cat Scan 08/03/21 01:39 Completed XR chest 1V leela ble [id number] Stat Exams 08/02/21 23:28 Completed US chest [id number] Ro utine Ultrasound 08/04/21 03:50 Completed Pending at discharge Category Date Time Status Amylase Body Flui d Routine Lab 08/03/21 03:51 Ordered Anaerobic Culture Routine Lab 08/03/21 03:51 Ordered Basic Metabolic P chaitanya AM LABS Lab 08/06/21 04:00 Ordered Basic Metabolic P chaitanya AM LABS Lab 08/07/21 04:00 Ordered Blood Culture Sta t Lab 08/02/21 23:54 Results Body Fluid Analys is Routine Lab 08/03/21 03:51 Ordered Body Fluid Cultur e & GS Routine Lab 08/03/21 03:51 Ordered Body Fluid Specif ic [place] Routine Lab 08/03/21 03:51 Ordered Complete Blood Co unt w/Auto AM LABS Lab 08/06/21 04:00 Ordered Complete Blood Co unt w/Auto AM LABS Lab 08/07/21 04:00 Ordered Glucose Body Flui d Routine Lab 08/03/21 03:51 Ordered LDH Body Fluid Ro utine Lab 08/03/21 03:51 Ordered Mycobacteria, Cul ture w/Fluor Routi ne Lab 08/03/21 03:51 Ordered Total Protein Ple ural Fluid Routine Lab 08/03/21 03:51 Ordered Triglycerides Bod y Fluid Routine Lab 08/03/21 03:51 Ordered Urine Culture Sta t Lab 08/03/21 00:44 Results pH Body Fluid Rou yara Lab 08/03/21 03:51 Ordered Cytology [PTH] Ro utine Pth 08/03/21 03:51 Ordered Labs from last 24 hours 08/05/21 08/05/21 06:05 06:05 WBC 5.7 RBC 4.34 Hgb 11.8 Hct 37.3 L MCV 85.9 MCH 27.2 L MCHC 31.6 RDW 15.9 H Plt Count 166 MPV 9.5 Neut % (Auto) 71.0 Lymph % (Auto) 16.1 [place] % (Auto) 10.2 Eos % (Auto) 1.6 Baso % (Auto) 0.9 Neut # (Auto) 4.05 Lymph # (Auto) 0.9 [place] # (Auto) 0.6 Eos # (Auto) 0.1 Baso # (Auto) 0.1 Nucleated RBC % (a uto) 0 Nucleated RBCs # 0.0 Sodium 135 L Potassium 3.7 Chloride 95 L Carbon Dioxide 34 H Anion Gap 9.7 BUN 20 Creatinine 0.9 GFR Calculation Not Reportable Glucose 86 Calculated Osmolal ity 282 L Calcium 8.0 L Vitals: Last Vital Signs Temp 98.0 F 08/05/21 12:00 Pulse 78 08/05/21 12:00 Resp 18 08/05/21 12:00 BP 99/67 08/05/21 12:00 Pulse Ox 97 08/05/21 12:00 Discharge Plan Discharge Patient Disposition: Home Condition: Stable Prescriptions: New levofloxacin 750 mg tablet 750 mg PO DAILY 6 Days Qty: 6 RF: 0 Continued levothyroxine 100 mcg tablet 100 mcg PO DAILY RF: 0 potassium chloride 20 mEq/15 mL liquid 20 meq PO DAILY Qty: 450 RF: 6 albuterol sulfate 2.5 mg /3 mL (0.083 %) solution for nebulization 5 mg inhalation Q4H PRN (Reason: shortness of breath or wheezing) RF: 0 cetirizine [Zyrtec] 10 mg tablet 10 mg PO DAILY RF: 0 guaifenesin [Mucinex] 600 mg tablet extended release 12hr 600 mg PO Q12H PRN (Reason: Shortness Of Breath) RF: 0 nystatin 100,000 unit/mL suspension 1 ml PO QID PRN (Reason: Mouth Irritation) RF: 0 valacyclovir [Valtrex] 500 mg tablet 500 mg PO DAILY RF: 0 sildenafil (pulm.hypertension) 20 mg tablet See Rx Instructions .ROUTE .COMPLEX Qty: 270 RF: 3 Trelegy Ellipta 100-62.5-25 mcg Blister With Device 1 inh INHALATION DAILY RF: 0 tamsulosin [Flomax] 0.4 mg capsule 0.4 mg PO .qhs Qty: 20 RF: 0 phenazopyridine [Pyridium] 100 mg tablet 100 mg PO Q8H Qty: 6 RF: 0 furosemide 40 mg Tablet See Rx Instructions .ROUTE .COMPLEX RF: 0 Discontinued metolazone 2.5 mg tablet 2.5 mg PO DAILY 7 Days Qty: 7 RF: 0 azithromycin 250 mg tablet 250 mg PO .COMPLEX 30 Days Qty: 15 RF: 3 Discharge Orders: Discharge Order (Routine); Ordered 08/05/21 Ordered By: Yoni Benson Referrals: Tom Aaron MD [Physician] - 1 week Kayleen Chen MD [Physician] - 7-10 days (right pleural fluid) Discharge Diet: Cardiac Discharge Activity: Resume usual activity Patient Instructions: Opioid Safety Activity Restrictions/Additional Instructions: -Please take antibiotics as prescribed -Please follow-up with pulmonary as outpatient -Please follow-up with Dr. Aaron as outpatient Discharge Attestations Time Spent in Discharge Care*: less than 30 min Quality Metrics Clinical Quality Measures During this hospital stay, did patient experience: None Coding Level of Care Code Acute Chg FW DC note Diagnoses Recurrent right pleural effusion J90 Pneumonia J18.9 Acute hypokalemia E87.6 History of lung cancer Z85.118 Pulmonary hypertension I27.20 HTN (hypertension) I10 Hypertension type: essential hypertension CHF (congestive heart failure) I50.9 Heart failure type: unspecified Heart failure chronicity: unspecified Anemia D64.9
[2021-08-05 15:21] VITALS: BP 99/67; PULSE 78; RESP 18; TEMP 36.7; O2SAT 97
== END 2021-08-05 15:22 | disposition home or self-care (01) | DRG 177 ==
LOC: ER 23:27 → MEDSURG 08-03 03:58
PROVIDERS: Admitting Provider Internal Medicine; Emergency Provider Emergency Medicine; PCP Family Medicine; Visit Provider Internal Medicine
DX: J69.0 Pneumonitis due to inhalation of food and vomit (principal); J96.01 Acute respiratory failure with hypoxia; J90 Pleural effusion, not elsewhere classified; N39.0 Urinary tract infection, site not specified; I50.32 Chronic diastolic (congestive) heart failure; I11.0 Hypertensive heart disease with heart failure; I27.20 Pulmonary hypertension, unspecified; I35.0 Nonrheumatic aortic (valve) stenosis; Z86.718 Personal history of other venous thrombosis and embolism; Z87.891 Personal history of nicotine dependence; Z85.118 Personal history of other malignant neoplasm of bronchus and lung; Z90.2 Acquired absence of lung [part of]; Z92.21 Personal history of antineoplastic chemotherapy; E03.9 Hypothyroidism, unspecified; E87.6 Hypokalemia; R33.9 Retention of urine, unspecified; Z79.51 Long term (current) use of inhaled steroids; Z85.6 Personal history of leukemia
CPT/HCPCS: 36415; 36600; 71045; 71275; 76604; 80048; 80053; 81001; 82550; 82803; 83605; 83735; 83880; 84145; 84484; 85025; 85378; 85610; 85730; 87040; 87077; 87086; 87186; 90471; 90686; 93005; 96365; 96366; 96367; 96375; 99285; J0456; J0696; J1956; J2270; J2405; J3010; J3475; J3480; J7030; J7050; Q9967

== ENCOUNTER 2021-08-06 17:51 | Inpatient (IN) | payer MEDICARE, BC, SELFPAY ==
--- NOTE | 2021-08-06 18:45 | PM.HP ---
Providers/Chief Complaint Admitting Physician: Yoni Benson MD Primary Care Provider: Rhys Ramos MD Chief Complaint: ASPIRATION - - -- RM [id number] History of Present Illness This is a 76-year-old male with a past medical history of acute myeloid leukemia and lung cancer for which he underwent a right lower lobe lobectomy, also found to have right-sided empyema with right chest tube and antibiotics for 2 weeks, cultures growing staph, with recurrent loculated right pleural effusion, with evidence of trapped lung physiology, history of pulmonary hypertension, on sildenafil, small airway disease who presents to [facility] due to evidence of aspiration. Patient was recently discharged from [facility], for concerns for right pleural effusion, was managed with IV antibiotics, review of patient's imaging with Dr. Chen from pulmonary revealed that patient had evidence of aspiration, with food particles in the right mainstem bronchus leading to volume loss right apical lung, recommendation was for repeat chest x-ray today, to see if the lung had reexpanded, patient was notified, his daughter kept a close eye on him, she actually kept him n.p.o. after his hospital discharge, repeat chest x-ray showed continued volume loss, after discussion with Dr. Chen, decision was made to directly admit patient to the hospital for a bronchoscopy and EGD for aspiration. Currently patient does report that he chronically has coughing and choking episodes, currently no nausea, no vomiting, no lightheadedness, dizziness, chest pain, shortness of breath, no fevers overnight. He hasn't taken the Levaquin which I discharged him with. Review of Systems Const: Denies: fever(s) Eyes: Reports: blurry vision; Denies: change in vision ENMT: Denies: nasal congestion Resp: Denies: non-productive cough GI: Reports: nausea; Denies: abdominal pain, vomiting, hematemesis, diarrhea, constipation, hematochezia or melena : Denies: flank pain, difficulty urinating, dysuria or urinary frequency Musc: Denies: neck pain or back pain Skin/Breast: Denies: rash Neuro: Denies: headache(s), dizziness or vertigo Endo: Denies: polyuria or polydipsia Medications/Allergies Home Medications Medication Instructions Recorded Confirmed Last Taken Type nystatin 100,000 unit/mL oral 1 ml PO QID PRN ml 11/07/19 08/03/21 07/06/20 History suspension valacyclovir 500 mg tablet 500 mg PO DAILY 11/07/19 08/03/21 07/06/20 History Trelegy Ellipta 1 inh INHALATION DAILY 11/24/19 08/03/21 07/06/20 History cetirizine 10 mg tablet 10 mg PO DAILY tab 08/15/20 08/03/21 Unknown History guaifenesin 600 mg tablet, 600 mg PO Q12H PRN 08/15/20 08/03/21 Unknown History extended release 12 hr levothyroxine 100 mcg tablet 100 mcg PO DAILY tab 08/15/20 08/03/21 Unknown History potassium chloride 20 mEq/15 mL 20 meq PO DAILY #450 ml 08/15/20 08/03/21 Unknown Rx oral liquid sildenafil (pulm.hypertension) 20 See Rx Instructions .ROUTE 05/28/21 08/03/21 Unknown Rx mg tablet .COMPLEX #270 tab albuterol sulfate 5 mg INHALATION Q4H PRN ml 07/26/21 08/03/21 Unknown History phenazopyridine [Pyridium] 100 mg PO Q8H #6 tab 07/30/21 08/03/21 Unknown Rx tamsulosin [Flomax] 0.4 mg PO .qhs #20 cap 07/30/21 08/03/21 Unknown Rx furosemide See Rx Instructions .ROUTE .COMPLEX 08/03/21 08/03/21 Unknown History levofloxacin 750 mg PO DAILY 6 Days #6 tab 08/05/21 Unknown Rx Allergies Allergy/AdvReac Type Severity Reaction Status Date / Time vancomycin Allergy ALGY-Anaphy Verified 08/02/21 23:28 laxis PFSH Acute PFSH: Medical History (Updated 08/06/21 @ 18:50 by Yoni Benson MD) AML (acute myeloblastic leukemia) Aortic valvar stenosis CHF (congestive heart failure) History of DVT (deep vein thrombosis) HTN (hypertension) Pulmonary hyperinflation Surgical History History of bone marrow biopsy S/P carpal tunnel release left S/P cholecystectomy S/P knee surgery left S/P thoracotomy Family History Brother CAD (coronary artery disease) Cancer Social History Quit status (tobacco): has quit using tobacco Year quit tobacco: 1987 - 2PPD x 30 Years Second hand smoke exposure: No Smoking risk assessment/counseling performed?: Yes Alcohol intake: never Lives independently: Yes Household members: spouse Marital status: service: Yes Current occupational status: retired Pets and animals: Yes Pets & animals: cat(s) Pets & animal details: outside History of recent travel: No Current gender identity: Male Physical Exam Const: COMMON NORMALS: no acute distress and patient oriented x3 GENERAL APPEARANCE: cooperative and comfortable HENMT: COMMON NORMALS: normocephalic HEAD & SCALP: normocephalic Eye: COMMON NORMALS: Equal, round and reactive pupils present and EOMs intact bilaterally GENERAL EYE: appearance normal, both eyes and all related structures PUPIL: Yes Equal, round and reactive pupils present Neck/C-Spine: COMMON NORMALS: full ROM and no lymphadenopathy THYROID: Thyroid normal Lymph: LYMPHATIC: no lymphadenopathy noted Resp: COMMON NORMALS: normal respiratory effort, No retractions, No use of accessory muscles and clear to auscultation bilaterally AUSCULTATION: clear to auscultation bilaterally Cardio: COMMON NORMALS: regular rate, regular rhythm, S1 normal heart sound present, S2 normal heart sound present, No gallops present (Cardio), No clicks present (Cardio) and No murmurs present (Cardio) RATE: regular rate RHYTHM: regular rhythm HEART SOUNDS: S1 normal heart sound present and S2 normal heart sound present GI: COMMON NORMALS: Normal to inspection, nondistended, normoactive bowel sounds present, Soft to palpation, non-tender and No hepatosplenomegaly present PALPATION: Yes Soft to palpation and Yes No hepatosplenomegaly present Extremity: COMMON NORMALS: normal to inspection, full ROM and no pedal edema Neuro: COMMON NORMALS: patient oriented x3, CN's II-XII intact bilaterally, moves all extremities and no focal motor deficits Psych: COMMON NORMALS: mental status grossly normal, Normal thought process present and cooperative THOUGHT PROCESS: Normal thought process present A&P Assessment and plan (1) Aspiration into main bronchus: -Will keep patient n.p.o. -Gentle IV hydration, D5 normal saline at 50 cc an hour for a total of 250 cc of fluid -Dr. Chen will do a bronchoscopy tomorrow -Coordinating with GI service for EGD tomorrow morning -CBC, CMP, pro-Sukh, CRP, mag, Phos, replace electrolyte as needed -Primaxin for antibiotic coverage -We'll repeat chest x-ray tomorrow morning -Monitor respiratory status closely, duo nebs as needed, chest vest therapy -Full code -Lovenox for DVT prophylaxis Status: Acute (2) Recurrent right pleural effusion: Status: Acute (3) Acute urinary retention: Status: Acute (4) History of lung cancer: Status: Acute (5) Pulmonary hypertension: Status: Acute (6) Aortic valvar stenosis: Status: Acute Qualifiers: Cardiac valve disease etiology: nonrheumatic Qualified Code(s): I35.0 - Nonrheumatic aortic (valve) stenosis (7) Pulmonary hyperinflation: Status: Acute (8) HTN (hypertension): Status: Acute Qualifiers: Hypertension type: essential hypertension Qualified Code(s): I10 - Essential (primary) hypertension (9) CHF (congestive heart failure): Status: Acute Qualifiers: Heart failure type: unspecified Heart failure chronicity: unspecified Qualified Code(s): I50.9 - Heart failure, unspecified Attestations Medical Necessity Statement*: Patient requires hospitalization, outpatient with observation, for aspiration Coding Level of Care Code Acute Parlor Maid for Chg Fwd Diagnoses Aspiration into main bronchus Recurrent right pleural effusion J90 Acute urinary retention R33.8 History of lung cancer Z85.118 Pulmonary hypertension I27.20 Aortic valvar stenosis I35.0 Cardiac valve disease etiology: nonrheumatic Pulmonary hyperinflation R09.89 HTN (hypertension) I10 Hypertension type: essential hypertension CHF (congestive heart failure) I50.9 Heart failure type: unspecified Heart failure chronicity: unspecified
[2021-08-06 20:00] VITALS: BP 101/66; PULSE 84; RESP 16; TEMP 36.2; O2SAT 96
[2021-08-06] MEDS: FUROsemide 20 mg Tablet PO (20:54)
[2021-08-06] MEDS: tamsulosin 0.4 mg Capsule PO (20:54)
[2021-08-06] MEDS: pantoprazole 40 mg SDV IVP (20:55)
[2021-08-06] MEDS: enoxaparin 40 mg/0.4 mL Syringe SUBCUT (20:56)
[2021-08-06 21:11] LABS: Basophils % 0.6 %; Eosinophils # 0.1 10^3/uL (0.0-0.8); Eosinophils % 0.9 %; Hematocrit 35.3 % (42.0-52.0); Hemoglobin 11.3 g/dL (11.7-16.6); Lymphocytes # 0.7 10^3/uL (0.8-4.8); Lymphocytes % 9.7 %; Mean Corpuscular Hemoglobin 27.2 pg (28.0-34.0); Mean Corpuscular Volume 84.9 fl (80-94); Mean Platelet Volume 10.2 fL (7.4-10.4); Monocytes # 0.6 10^3/uL (0.2-0.9); Monocytes % 8.6 %; Neutrophils # 5.41 10^3/uL (1.8-7.7); Neutrophils % 79.8 %; Nucleated Red Blood Cells % 0 %; Platelet Count 163 10^3/cmm (130-400); Red Blood Count 4.16 10^6/uL (4.1-5.3); White Blood Count 6.8 10^3/uL (4.0-10.0)
[2021-08-06 21:56] LABS: NT Pro B Type Natriuretic Pept 9315 pg/mL (0-450); Procalcitonin 0.19 ng/mL (0-0.5)
[2021-08-06 21:59] LABS: Thyroid Stimulating Hormone 9.62 uIU/mL (0.27-4.20)
[2021-08-06 22:07] LABS: Alanine Aminotransferase 14 U/L (0-41); Alkaline Phosphatase 162 IU/L (40-130); Aspartate Amino Transferase 27 U/L (0-40); Blood Urea Nitrogen 17 mg/dL (8-23); C Reactive Protein 53.2 mg/L (0.0-4.9); Calcium 8.4 mg/dL (8.5-10.5); Carbon Dioxide 29 mmol/L (22-29); Chloride 94 mmol/L (98-107); Globulin 4.3 g/dL (1.3-4.6); Glucose 90 mg/dL (65-115); Magnesium 1.7 mg/dL (1.7-2.3); Osmolality Calculated 283 mOsm/kg (285-295); Phosphorus 2.8 mg/dL (2.5-4.5); Sodium 136 mmol/L (136-145); Total Bilirubin 0.8 mg/dL (0.15-1.2); Total Protein 7.3 g/dL (6.6-8.7)
[2021-08-06 22:09] LABS: Anion Gap 16.9 (5-19); Potassium 3.9 mmol/L (3.5-5.1)
[2021-08-07] VITALS (13 sets, daily range): BP systolic 90–122; BP diastolic 50–74; PULSE 71–86; RESP 14–18; TEMP 36.1–37.1; O2SAT 88–97
--- NOTE | 2021-08-07 04:22 | PC.NURSE ---
This nurse went to patients room to start an IV, once the dressing was applied the IV would no longer flush, while this nurse was attempting to remove the venagaurd dressing the patient's skin was pulled off with the dressing in two separate areas, this nurse cleaned them and applied optifoam dressings on them.
[2021-08-07] MEDS: FUROsemide 40 mg Tablet PO (05:18)
[2021-08-07 05:31] LABS: Basophils % 0.7 %; Eosinophils # 0.1 10^3/uL (0.0-0.8); Hematocrit 37.7 % (42.0-52.0); Hemoglobin 11.5 g/dL (11.7-16.6); Lymphocytes # 0.6 10^3/uL (0.8-4.8); Lymphocytes % 10.1 %; Mean Corpuscular HGB Conc 30.5 g/dL (30.0-36.0); Mean Corpuscular Hemoglobin 26.7 pg (28.0-34.0); Mean Corpuscular Volume 87.5 fl (80-94); Monocytes # 0.6 10^3/uL (0.2-0.9); Monocytes % 10.6 %; Neutrophils % 77.3 %; Nucleated Red Blood Cells % 0 %; Platelet Count 154 10^3/cmm (130-400); Red Blood Count 4.31 10^6/uL (4.1-5.3)
[2021-08-07 05:54] LABS: Alanine Aminotransferase 14 U/L (0-41); Albumin Level 2.8 g/dL (3.5-5.2); Alkaline Phosphatase 158 IU/L (40-130); Anion Gap 13.5 (5-19); Aspartate Amino Transferase 24 U/L (0-40); Blood Urea Nitrogen 16 mg/dL (8-23); Calcium 8.1 mg/dL (8.5-10.5); Carbon Dioxide 30 mmol/L (22-29); Chloride 96 mmol/L (98-107); Globulin 4.2 g/dL (1.3-4.6); Glucose 85 mg/dL (65-115); Magnesium 1.8 mg/dL (1.7-2.3); Osmolality Calculated 282 mOsm/kg (285-295); Phosphorus 2.9 mg/dL (2.5-4.5); Potassium 3.5 mmol/L (3.5-5.1); Sodium 136 mmol/L (136-145); Total Bilirubin 0.9 mg/dL (0.15-1.2)
--- NOTE | 2021-08-07 06:31 | PC.NURSE ---
Pt exiting unit at this time to bronch/EGD
--- NOTE | 2021-08-07 06:51 | PM.CONSULT ---
Providers/Reason For Consult Consulting Physician/Specialty*: Endoscopist Reason for Consult*: Dysphagia, and abnormality of esophagus noted on CAT scan. Attending Physician: Kayleen Chen MD Primary Care Provider: Rhys Ramos MD History of Present Illness History of Present Illness Ilan Bhatia is a 76 year old male who is presenting to the gastrointestinal lab for an esophagogastroduodenoscopy. I was contacted by Dr. Chen yesterday because of an abnormality noted on the CT scan in the area of the esophagus. He has been having difficulty swallowing that is getting progressively worse over the last couple of weeks. It was also felt that he was potentially aspirating due to blockage in the esophagus. As result, I was asked to perform an EGD today to better evaluate his upper gastrointestinal tract. Review of Systems Const: Denies: fever(s) Card: Denies: chest pain or irregular heart rhythm GI: Reports: other (Unable to swallow food.) Meds/Allergies Home Medications and Allergies Home Medications Medication Instructions Recorded Confirmed Last Taken Type nystatin 100,000 unit/mL oral 1 ml PO QID PRN ml 11/07/19 08/03/21 07/06/20 History suspension valacyclovir 500 mg tablet 500 mg PO DAILY 11/07/19 08/03/21 07/06/20 History Trelegy Ellipta 1 inh INHALATION DAILY 11/24/19 08/03/21 07/06/20 History cetirizine 10 mg tablet 10 mg PO DAILY tab 08/15/20 08/03/21 Unknown History guaifenesin 600 mg tablet, 600 mg PO Q12H PRN 08/15/20 08/03/21 Unknown History extended release 12 hr levothyroxine 100 mcg tablet 100 mcg PO DAILY tab 08/15/20 08/03/21 Unknown History potassium chloride 20 mEq/15 mL 20 meq PO DAILY #450 ml 08/15/20 08/03/21 Unknown Rx oral liquid sildenafil (pulm.hypertension) 20 See Rx Instructions .ROUTE 05/28/21 08/03/21 Unknown Rx mg tablet .COMPLEX #270 tab albuterol sulfate 5 mg INHALATION Q4H PRN ml 07/26/21 08/03/21 Unknown History phenazopyridine [Pyridium] 100 mg PO Q8H #6 tab 07/30/21 08/03/21 Unknown Rx tamsulosin [Flomax] 0.4 mg PO .qhs #20 cap 07/30/21 08/03/21 Unknown Rx furosemide See Rx Instructions .ROUTE .COMPLEX 08/03/21 08/03/21 Unknown History levofloxacin 750 mg PO DAILY 6 Days #6 tab 08/05/21 Unknown Rx Allergies Allergy/AdvReac Type Severity Reaction Status Date / Time vancomycin Allergy ALGY-Anaphy Verified 08/02/21 23:28 laxis Current Medications Current Medications Generic Name Dose Route Start Last Admin Trade Name Freq PRN Reason Stop Dose Admin Enoxaparin Sodium 40 mg 08/06/21 20:00 08/06/21 20:56 Enoxaparin 40 Mg/0.4 Ml Syringe SUBCUT 40 mg Q24H CESAR Administration Furosemide 40 mg 08/07/21 06:00 08/07/21 05:18 Furosemide 40 Mg Tablet PO 40 mg QAM CESAR Administration Furosemide 20 mg 08/06/21 12:00 08/06/21 20:54 Furosemide 20 Mg Tablet PO 20 mg 1200 CESAR Administration Imipenem/Cilastatin Sodium 500 100 mls @ 200 mls/hr 08/06/21 20:00 08/07/21 01:55 mg/ Sodium Chloride IV Infused Q6H CESAR Infusion Protocol Pantoprazole Sodium 40 mg 08/06/21 20:00 08/06/21 20:55 Pantoprazole 40 Mg Sdv IVP 40 mg Q24H CESAR Administration Tamsulosin HCl 0.4 mg 08/06/21 21:00 08/06/21 20:54 Tamsulosin 0.4 Mg Capsule PO 0.4 mg BEDTIME CESAR Administration PFSH Acute PFSH: Medical History (Updated 08/07/21 @ 07:33 by Rhys Ramos MD) AML (acute myeloblastic leukemia) Aortic valvar stenosis CHF (congestive heart failure) History of DVT (deep vein thrombosis) HTN (hypertension) Pulmonary hyperinflation Surgical History History of bone marrow biopsy S/P carpal tunnel release left S/P cholecystectomy S/P knee surgery left S/P thoracotomy Family History Brother CAD (coronary artery disease) Cancer Social History Quit status (tobacco): has quit using tobacco Year quit tobacco: 1987 - 2PPD x 30 Years Second hand smoke exposure: No Smoking risk assessment/counseling performed?: Yes Alcohol intake: never Lives independently: Yes Household members: spouse Marital status: service: Yes Current occupational status: retired Pets and animals: Yes Pets & animals: cat(s) Pets & animal details: outside History of recent travel: No Current gender identity: Male Vitals/I&O/Wt Last Vital Signs Temp 97.5 F L 08/07/21 04:00 Pulse 75 08/07/21 04:00 Resp 16 08/07/21 04:00 BP 110/67 08/07/21 04:00 Pulse Ox 94 08/07/21 04:00 08/06/21 08/06/21 08/07/21 14:59 22:59 06:59 Intake Total 100 / 100 350 / 450 Output Total 250 / 250 Balance 100 / 100 100 / 200 Weight last 48 hrs Weight 165 lb Physical Exam Const: COMMON NORMALS: no acute distress and patient oriented x3 GENERAL APPEARANCE: cooperative, comfortable and well developed HENMT: COMMON NORMALS: normocephalic and moist oral mucous membranes HEAD & SCALP: normocephalic Chest: COMMONS NORMALS: normal inspection of the chest Resp: COMMON NORMALS: normal respiratory effort AUSCULTATION: diminished lung sounds Cardio: COMMON NORMALS: regular rate, regular rhythm, No gallops present (Cardio), No murmurs present (Cardio) and No rub (Cardio) RATE: regular rate RHYTHM: regular rhythm Extremity: COMMON NORMALS: normal to inspection Neuro: COMMON NORMALS: patient oriented x3 and no focal motor deficits Skin: COMMON NORMALS: no rashes or lesions noted GENERAL SKIN EXAM: no rashes or lesions noted Data Micro: Micro: Microbiology 08/06/21 19:00 Blood Culture - Pr eliminary Blood SPECIMEN COLLEC RAMSEY A&P Assessment and plan (1) Aspiration into main bronchus: Status: Acute (2) Abnormal CT scan, esophagus: Status: Acute (3) Dysphagia: The patient's clinical condition continues to decline. Since he is unable to swallow currently, he would definitely benefit from an evaluation of his upper gastrointestinal tract. I discussed the risks of an EGD including the risks of bleeding, perforation, and anesthesia. He had no further questions and wishes to proceed. Status: Acute Coding Level of Care Code Acute Conductor And Engineer for Chg Fwd Exam Comprehensive Diagnoses Aspiration into main bronchus Abnormal CT scan, esophagus R93.3 Dysphagia R13.10
[2021-08-07] MEDS: sodium chloride 0.9% 1,000 ML 30 ML IV (06:55)
--- NOTE | 2021-08-07 06:59 | P.ANESASSM_ITS ---
Pre-Anesthetic Assessment Pre-Anesthetic Assessment: Height/Weight: Height 1.85 m Weight 74.843 kg Temp Pulse Resp BP Pulse Ox 97.5 F L 75 16 110/67 94 08/07/21 04:00 08/07/21 04:00 08/07/21 04:00 08/07/21 04:00 08/07/21 04:00 Preop Diagnosis: aspiration pneumonia Proposed Procedure: Operation Date: 08/07/21 07:00 Proposed Procedures p EGD(Not Applicable) - Rhys Ramos MD s Bronchoscopy(Not Applicable) - Kayleen Chen MD Familial anesthetic complications: none Was Beta Sydney taken within 24 hours: N/A Was Clonidine taken within 24 hours: N/A Last intake: Intake Last Liquid Date 08/06/21 Last Solid Date 07/31/21 Social: Social History: No alcohol and No tobacco Exam: Pre-Anes Outpt Exam: alert, oriented x 3, clear to auscultation bilaterally and regular rate & rhythm Airway: Submandibular: WNL Cervical ROM: WNL MP: 1 Dentition: False Pulmonary: Pulmonary: FRAUSTO and SOB Comments: pulmonary hypertension, bronchitis, O2 at home CV/HEM: CV/HEM: CHF and HTN Comments: aortic valve stenosis : : None reported Hepatic: Hepatic: None reported GI: Comments: trouble swallowing, aspiration Metabolic: Metabolic: Thyroid Musc/skel: Musc/skel: None reported Neuropsych: Neuropsych: None reported Anesthetic Plan: ASA status: 3 Anesthesia: General Risk of > 500 ml blood loss (7ml/kg in children): No Meds/Allergies Current Medications: Current Medications Generic Name Dose Route Start Last Admin Trade Name Shun PRN Reason Stop Dose Admin Enoxaparin Sodium 40 mg 08/06/21 20:00 08/06/21 20:56 Enoxaparin 40 Mg /0.4 Ml Syringe SUBCUT 40 mg Q24H CESAR Administration Furosemide 40 mg 08/07/21 06:00 08/07/21 05:18 Furosemide 40 Mg Tablet PO 40 mg QAM CESAR Administration Furosemide 20 mg 08/06/21 12:00 08/06/21 20:54 Furosemide 20 Mg Tablet PO 20 mg 1200 CESAR Administration Imipenem/Cilastati n Sodium 500 100 mls @ 200 mls /hr 08/06/21 20:00 08/07/21 01:55 mg/ Sodium Chlor jie IV Infused Q6H CESAR Infusion Protocol Pantoprazole Sodiu m 40 mg 08/06/21 20:00 08/06/21 20:55 Pantoprazole 40 Mg Sdv IVP 40 mg Q24H CESAR Administration Tamsulosin HCl 0.4 mg 08/06/21 21:00 08/06/21 20:54 Tamsulosin 0.4 M g Capsule PO 0.4 mg BEDTIME CESAR Administration PFSH Anesthesia 2 PFSH: Medical History (Updated 08/07/21 @ 06:53 by Rhys Ramos MD) AML (acute myeloblastic leukemia) Aortic valvar stenosis CHF (congestive heart failure) History of DVT (deep vein thrombosis) HTN (hypertension) Pulmonary hyperinflation Surgical History History of bone marrow biopsy S/P carpal tunnel release left S/P cholecystectomy S/P knee surgery left S/P thoracotomy Family History Brother CAD (coronary artery disease) Cancer Social History Quit status (tobacco): has quit using tobacco Year quit tobacco: 1987 - 2PPD x 30 Years Second hand smoke exposure: No Smoking risk assessment/counseling performed?: Yes Alcohol intake: never Lives independently: Yes Household members: spouse Marital status: service: Yes Current occupational status: retired Pets and animals: Yes Pets & animals: cat(s) Pets & animal details: outside History of recent travel: No Current gender identity: Male Data Anesthesia CBC & Chem 7: 08/07/21 04:56 08/07/21 04:56 Other Labs: Laboratory Results - last 48 hr 08/06/21 08/06/21 08/06/21 21:00 21:00 21:00 WBC 6.8 RBC 4.16 Hgb 11.3 L Hct 35.3 L MCV 84.9 MCH 27.2 L MCHC 32.0 RDW 16.0 H Plt Count 163 MPV 10.2 Neut % (Auto) 79.8 Lymph % (Auto) 9.7 [place] % (Auto) 8.6 Eos % (Auto) 0.9 Baso % (Auto) 0.6 Neut # (Auto) 5.41 Lymph # (Auto) 0.7 L [place] # (Auto) 0.6 Eos # (Auto) 0.1 Baso # (Auto) 0.0 Nucleated RBC % (auto) 0 Nucleated RBCs # 0.0 Sodium 136 Potassium 3.9 Chloride 94 L Carbon Dioxide 29 Anion Gap 16.9 BUN 17 Creatinine 0.8 GFR Calculation Not Reportable Glucose 90 Calculated Osmolality 283 L Calcium 8.4 L Phosphorus 2.8 Magnesium 1.7 Total Bilirubin 0.8 AST 27 ALT 14 Alkaline Phosphatase 162 H C-Reactive Protein 53.2 H NT-Pro-B Natriuret Pep 9315 H Total Protein 7.3 Albumin 3.0 L Globulin 4.3 Procalcitonin 0.19 TSH 9.62 H 08/07/21 08/07/21 04:56 04:56 WBC 6.0 RBC 4.31 Hgb 11.5 L Hct 37.7 L MCV 87.5 MCH 26.7 L MCHC 30.5 RDW 16.0 H Plt Count 154 MPV 10.0 Neut % (Auto) 77.3 Lymph % (Auto) 10.1 [place] % (Auto) 10.6 Eos % (Auto) 1.0 Baso % (Auto) 0.7 Neut # (Auto) 4.60 Lymph # (Auto) 0.6 L [place] # (Auto) 0.6 Eos # (Auto) 0.1 Baso # (Auto) 0.0 Nucleated RBC % (auto) 0 Nucleated RBCs # 0.0 Sodium 136 Potassium 3.5 Chloride 96 L Carbon Dioxide 30 H Anion Gap 13.5 BUN 16 Creatinine 0.7 GFR Calculation Not Reportable Glucose 85 Calculated Osmolality 282 L Calcium 8.1 L Phosphorus 2.9 Magnesium 1.8 Total Bilirubin 0.9 AST 24 ALT 14 Alkaline Phosphatase 158 H C-Reactive Protein NT-Pro-B Natriuret Pep Total Protein 7.0 Albumin 2.8 L Globulin 4.2 Procalcitonin TSH Micro: Microbiology 08/06/21 19:00 Blood Culture - Preliminary Blood SPECIMEN COLLECTED Cardiac Studies: No Data to Display
--- NOTE | 2021-08-07 07:00 | XR_ITS ---
WS: [id number] Exam: XR chest 1V portable [id number] Date/Time of Exam: 08/07/2021 6:10 AM Reason For Exam: sob Comparison 08/06/2021. Again noted is large right-sided pleural effusion with compressive atelectasis of the upper lobe of t he right lung. There appears to be some infiltrate in the ventilated aspects of the upper right lobe. The left lung remains fully expanded with chronic interstitial changes. Heart size appears to be sta ble but the right heart border is obscured. No pneumothorax is seen. The mediastinum is not widened. Overall, very little change since prior study. Bony structures are unremarkable. At least one old lef t-sided rib fracture. XR/XR chest 1V portable [id number] IMPRESSION: 1. Chest x-ray essentially unchanged when compared to the latest exam .
--- NOTE | 2021-08-07 07:37 | P.OP_ITS ---
Brief Operative Note: Date of procedure: 08/07/21 Pre-op diagnosis: Dysphagia, abnormality noted on CAT scan Post-op diagnosis: same Procedure Done: EGD with biopsy Surgeon: Rhys Ramos Estimated blood loss (mL): 5 Complications: None Post-op Plan: The patient was noted to have about a 4 cm segment of the esophagus at 30 to 34 cm which was noted to have some stenosis, and circumferential necrotic debris. The area was difficult to intubate and to pass to due to the stenotic nature of the lesion. There was minimal vascularity of the area. Multiple biopsies were taken. The findings are most consistent with a neoplasm. We will wait for results from the biopsies to guide further therapy. His abilities to pass food may be improved as result the natural dilation that occurred during the EGD. Condition: stable Disposition: floor Coding Level of Care Code Acute Power Ballast Machine Operator for Philipp Mccollum
--- NOTE | 2021-08-07 07:59 | P.PCN_ITS ---
PACU note PACU note: VSS, Good respiratory effort, report to HEAD REFRIGERATING ENGINEER Post-Anesthesia Exam: awake
--- NOTE | 2021-08-07 07:59 | PM.PACU ---
PACU note PACU note: VSS, Good respiratory effort, report to ORACLE MANUFACTURING CONSULTANT Post-Anesthesia Exam: awake
--- NOTE | 2021-08-07 08:18 | PM.OP ---
Operative Report Date of procedure: August 07, 2021 Pre-op Diagnosis: aspiration pneumonia Post-op diagnosis: same Brief History: This is a 76-year-old gentleman with recent hospitalization for pneumonia. CT scan evaluation revealed presence of food material in the right mainstem bronchus. The patient was admitted yesterday for inability to to eat. He is scheduled for simultaneous bronchoscopy and endoscopy this morning. Procedure: Name of the procedure: Bronchoscopy with inspection of the airway, bronchoalveolar lavage, airway clearance, control of bleeding. Indication: Aspirated food material. Anesthesia: General anesthesia. Local anesthesia: The misael in the right and left mainstem bronchi were anesthetized with 1% lidocaine, 3 mL. Description of the procedure: The procedure was explained to the patient and the consent was obtained. The patient was brought to the OR. The patient underwent endotracheal intubation for general anesthesia. The patient initially underwent endoscopic evaluation. Following induction of general anesthesia, the bronchoscope was advanced through the ET tube. Thick mucoid secretion was noted in the lower part of the endotracheal tube. This was cleaned up. The lower trachea appeared to be mildly erythematous, no endotracheal lesion was seen. The misael was splayed. The misael, the right and left mainstem bronchi are anesthetized with 1% lidocaine. Mucus was noted in the right mainstem bronchus at the level of the misael. In a systematic manner bilateral bronchial tree was then examined. The bronchoscope was advanced into the left mainstem bronchus. The left upper lobe, lingula and left lower lobe bronchi were examined up to the third subsegmental level and no abnormalities were identified. There was mild mucus throughout the airways on the left side. The bronchoscope was then introduced into the right mainstem bronchus. Thick mucoid secretion was noted occluding the right mainstem bronchus. This was suctioned cleaned. The stump from previous right middle and lower lobectomy was identified. The entrance of the right upper lobe bronchus was completely occluded by mucus. The mucus was cleaned out by suctioning. Bronchoalveolar lavage was performed from the anterior segment of the right upper lobe. Total fluid instillation was 60 mL, fluid return was 20 mL. The fluid was cloudy. Samples: 1. Bronchoalveolar lavage specimen was sent for Gram stain and culture, fungal stain and culture, AFB stain and culture. Complications: There was no immediate complications.
--- NOTE | 2021-08-07 08:22 | P.PN_ITS ---
Subjective Subjective: Interval history: This is a 76-year-old gentleman well-known to me from his multiple office visit. The patient has an extensive past medical history. 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 The patient was last seen in office in early July. At that time the patient had significant bilateral lower extremity edema due to RV failure. This was managed by increasing his diuretic regimen. The patient had lost the extra weight from water however ended up in the emergency room because of urinary retention. Subsequently the patient was discharged home.. The patient was again hospitalized with right-sided pneumonia. At that time a CT scan of the chest revealed food material in the right mainstem bronchus additionally there was food in the mid esophagus. After the patient was discharged follow-up chest x-ray revealed ongoing lung volume loss and persistent infiltrate on the right side. His daughter who is a nurse practitioner also reported that the patient is choking with attempts to eat anything. The decision was made for him to get admitted to the hospital and get simultaneous upper GI endoscopy and the bronchoscopy. I had seen and examined the patient today. The patient was awake alert and oriented, complained of difficulty swallowing. Endoscopic evaluation revealed inflammation in circumferential distribution in mid esophagus with airway narrowing and sloughing of the mucosa. This was likely responsible for the food impaction and difficulty swallowing for the patient. Bronchoscopic evaluation revealed mucous plug in the right mainstem bronchus and right upper lobe which has been cleaned up. Medications: Reviewed: Yes Vitals/I&O/Wt Last Vital Signs Temp 97.0 F L 08/07/21 08:10 Pulse 72 08/07/21 08:10 Resp 14 08/07/21 08:10 BP 94/59 08/07/21 08:10 Pulse Ox 93 08/07/21 08:10 08/06/21 08/07/21 08/07/21 22:59 06:59 14:59 Intake Total 100 / 100 350 / 450 Output Total 250 / 250 Balance 100 / 100 100 / 200 Weight last 48 hrs Weight 165 lb Physical Exam Narrative: EXAM NARRATIVE: General: Patient is awake alert and oriented, in no distress. Neck: Mild jugular venous distention Respiratory: Auscultation: Crackles at the right hemithorax, no wheezing or rhonchi, reduced breath sound on the left side Cardiovascular: Regular rate and rhythm, S1-S2 present, pansystolic murmur in the tricuspid area, bilateral peripheral edema Abdomen: Soft, nontender, nondistended, positive bowel sound Musculoskeletal: No obvious joint deformity Skin: Erythematous and skin in bilateral lower extremity over the edema Neuro: Mental status is normal, no gross cranial nerve deficit, normal motor function Data : 08/07/21 04:56 08/07/21 04:56 Micro: Microbiology 08/06/21 19:00 Blood Culture - Preliminary Blood SPECIMEN COLLECTED Attestation for Other Data: I personally reviewed and interpreted the following: Other data: I have reviewed the patient's laboratory microbiologic and radiologic data A&P Assessment and plan (1) Mucus plugging of bronchi: The patient had evidence of mucous plugging in the right mainstem bronchus as well as right upper lobe bronchus. This was cleared up. Status: Acute (2) Pneumonia: We will follow up the result of the bronchoalveolar lavage. We will treat empirically for pneumonia for the time being. Status: Acute (3) Pulmonary hypertension: The patient has severe pulmonary hypertension. He has WHO group 5 pulmonary hypertension. We will continue with diuresis. If the patient is unable to swallow Lasix, will do 20 mg of IV Lasix and assess his volume status. The patient is borderline hypotensive at baseline, he would be okay with diuresis. Continue with sildenafil at his home dose. The plan is for him to diurese a few liters and become euvolemic before leaving the hospital. Status: Acute (4) Dysphagia: The reason for the dysphagia and likely aspiration is that mid esophageal lesion. It is unclear if this is an inflammatory lesion or malignant. The patient will likely need an esophagram to see if the food material or liquid will actually be able to pass through this lesion. I will continue to follow the patient. Status: Acute Attestations Medical Necessity Statement*: Will defer to the primary team Coding Level of Care Code Acute Front Desk Administrator for Philipp Mccollum Diagnoses Mucus plugging of bronchi T17.500A Pneumonia J18.9 Pulmonary hypertension I27.20 Dysphagia R13.10
--- NOTE | 2021-08-07 09:16 | PC.CHAP ---
Pastoral Care Encounter/Spiritual Assessment Type of Contact [] Declined rn post partum visit [] Patient/Family/Request visit [] Outpatient visit [] Follow-up visit [] Physician referral [] Code/Alert [] Routine visit [] Staff referral [] Actively dying [] Patient sleeping [] Family support [] [] Out of room [] Palliative care [] [x] Receiving care in room [] Pre-surgical visit [] Trauma [] Long length of stay [] ICU visit [] Other: Relational/Emotional Strength [] Patient feels connected with others/family/visitors/staff [] Distress [] Loneliness/isolation [] Abandonment Spirituality of Patient [] Person of Prudence [] Attends Congregational of their Prudence [] Believes in Prayer [] Reads Bible or Druze materials [] There are Spiritual issues to be addressed [place] Interventions [] Prayer [] Active listening [] Non-anxious presence [] Spiritual/emotional support [] Crisis/trauma care [] Spiritual counseling [] Bereavement support [] Provided bereavement packet [] Provided Bible/devotional materials [] Provided toy/stuffed animal, coloring book to patient or family member [] Provided Communion [] Anointing/[place] [] Salvation [] Completed spiritual assessment [] Other: Impact on Illness or Injury [] Angry [] Fearful [] Anxious [] Often cries [] Exhaustion [] Unable to work [] Unable to attend yazidi [] Unable to walk/stand [] Unable to read [] Unable to drive [] Unable to eat/drink [] Unable to sleep [] Unable to be with family [] Patient intubated [] Other: Summary Time spent with patient
--- NOTE | 2021-08-07 12:19 | PC.PHAR ---
PT AND PTS FAMILY VERIFIED THE PTS MEDICATIONS-NOTES ARE MADE IN THE PHARMACY COMMENTS
--- NOTE | 2021-08-07 13:04 | PM.PN ---
Subjective Subjective: Interval history: Patient was seen after his endoscopy and bronchoscopy, currently n.p.o., denies any shortness of breath, no cough, no fevers Vitals/I&O/Wt Last Vital Signs Temp 97.8 F 08/07/21 12:00 Pulse 74 08/07/21 12:00 Resp 17 08/07/21 12:00 BP 96/63 08/07/21 12:00 Pulse Ox 92 08/07/21 12:00 08/06/21 08/07/21 08/07/21 22:59 06:59 14:59 Intake Total 100 / 100 350 / 450 Output Total 250 / 250 Balance 100 / 100 100 / 200 Weight last 48 hrs Weight 74.843 kg Physical Exam Const: COMMON NORMALS: no acute distress and patient oriented x3 Resp: COMMON NORMALS: normal respiratory effort, No retractions, No use of accessory muscles and clear to auscultation bilaterally AUSCULTATION: clear to auscultation bilaterally Cardio: COMMON NORMALS: regular rate, regular rhythm, S1 normal heart sound present and S2 normal heart sound present RATE: regular rate RHYTHM: regular rhythm HEART SOUNDS: S1 normal heart sound present and S2 normal heart sound present GI: COMMON NORMALS: Normal to inspection, nondistended, normoactive bowel sounds present, Soft to palpation and non-tender PALPATION: Yes Soft to palpation Extremity: COMMON NORMALS: no pedal edema Neuro: COMMON NORMALS: patient oriented x3 Psych: COMMON NORMALS: mental status grossly normal Data : 08/07/21 04:56 08/07/21 04:56 Micro: Microbiology 08/06/21 21:00 Blood Culture - Preliminary Blood SPECIMEN COLLECTED 08/06/21 19:00 Blood Culture - Preliminary Blood SPECIMEN COLLECTED A&P Assessment and plan (1) Aspiration into main bronchus: -Bronchoscopy showed mucous plug in the right mainstem bronchus, and right upper lobe, which was removed -Endoscopic evaluation showed inflammation in the circumferential distribution of the mid esophagus with airway narrowing and sloughing of the mucosa etiology likely related to food impaction versus malignant lesion -Stop IV hydration -Lasix for bilateral lower extremity edema -Primaxin for antibiotic coverage -We'll repeat chest x-ray tomorrow morning -Monitor respiratory status closely, duo nebs as needed, chest vest therapy -Speech therapy eval -High risk of aspiration -Can consider esophagram -Full code -Lovenox for DVT prophylaxis Status: Acute (2) Recurrent right pleural effusion: Status: Acute (3) Acute urinary retention: Status: Inactive (4) History of lung cancer: Status: Acute (5) Pulmonary hypertension: Status: Acute (6) Aortic valvar stenosis: Status: Acute Qualifiers: Cardiac valve disease etiology: nonrheumatic Qualified Code(s): I35.0 - Nonrheumatic aortic (valve) stenosis (7) Pulmonary hyperinflation: Status: Acute (8) HTN (hypertension): Status: Acute Qualifiers: Hypertension type: essential hypertension Qualified Code(s): I10 - Essential (primary) hypertension (9) CHF (congestive heart failure): Status: Acute Qualifiers: Heart failure type: unspecified Heart failure chronicity: unspecified Qualified Code(s): I50.9 - Heart failure, unspecified Attestations Medical Necessity Statement*: Patient requires hospitalization, inpatient, greater than 2 minutes, for aspiration, esophageal lesion Coding Level of Care Code Acute Isobutylene Operator Chief for Chg Fwd Diagnoses Aspiration into main bronchus Recurrent right pleural effusion J90 Acute urinary retention R33.8 History of lung cancer Z85.118 Pulmonary hypertension I27.20 Aortic valvar stenosis I35.0 Cardiac valve disease etiology: nonrheumatic Pulmonary hyperinflation R09.89 HTN (hypertension) I10 Hypertension type: essential hypertension CHF (congestive heart failure) I50.9 Heart failure type: unspecified Heart failure chronicity: unspecified
[2021-08-07] MEDS: midodrine 5 mg TABLET PO ×2 (15:36→21:54)
[2021-08-07] MEDS: FUROsemide 10 mg/mL SDV 4mL 40 MG IVP (15:36)
[2021-08-07] MEDS: enoxaparin 40 mg/0.4 mL Syringe SUBCUT (20:02)
[2021-08-07] MEDS: pantoprazole 40 mg SDV IVP (20:02)
[2021-08-07] MEDS: tamsulosin 0.4 mg Capsule PO (20:02)
[2021-08-07] MEDS: acetaminophen 325 mg Tablet 650 MG PO (20:05)
[2021-08-08] VITALS (8 sets, daily range): BP systolic 89–122; BP diastolic 44–70; PULSE 78–89; RESP 16–18; TEMP 36.2–36.7; O2SAT 90–97
--- NOTE | 2021-08-08 00:55 | PC.NURSE ---
Pt voiced concerns with not voiding this evening. Bladder scanned performed. Estimated 87 mL of urine noted. Pt denies the feeling of needing to void. Bladder not distended.
[2021-08-08] MEDS: midodrine 5 mg TABLET PO ×3 (06:07→21:22)
[2021-08-08 06:19] LABS: Basophils # 0.1 10^3/uL (0.0-0.1); Basophils % 0.8 %; Eosinophils # 0.1 10^3/uL (0.0-0.8); Eosinophils % 1.1 %; Hematocrit 37.7 % (42.0-52.0); Hemoglobin 11.9 g/dL (11.7-16.6); Lymphocytes # 0.9 10^3/uL (0.8-4.8); Lymphocytes % 13.6 %; Mean Corpuscular HGB Conc 31.6 g/dL (30.0-36.0); Mean Corpuscular Hemoglobin 27.1 pg (28.0-34.0); Mean Corpuscular Volume 85.9 fl (80-94); Mean Platelet Volume 9.8 fL (7.4-10.4); Monocytes # 0.9 10^3/uL (0.2-0.9); Neutrophils # 4.66 10^3/uL (1.8-7.7); Neutrophils % 70.9 %; Nucleated Red Blood Cells % 0 %; Platelet Count 158 10^3/cmm (130-400); Red Blood Count 4.39 10^6/uL (4.1-5.3); Red Cell Distribution Width 15.9 % (12.1-15.1); White Blood Count 6.6 10^3/uL (4.0-10.0)
--- NOTE | 2021-08-08 07:00 | XR_ITS ---
WS: [id number] Exam: XR chest 1V portable [id number] Date/Time of Exam: 08/08/2021 6:20 AM Reason For Exam: sob Comparison 08/07/2021. There is now complete consolidation of the right lung with complete white out. The left lung is fully expanded with pulmonary vascular redistribution. The heart is probably not enlarged with the right h eart border is obscured. Several old bilateral rib fractures. XR/XR chest 1V portable [id number] IMPRESSION: 1. Complete consolidation of the right lung with total whiteout. 2. The left lung is well ventilated without obvious infiltrate or pneumothorax.
[2021-08-08 07:10] LABS: Alanine Aminotransferase 12 U/L (0-41); Albumin Level 2.7 g/dL (3.5-5.2); Alkaline Phosphatase 162 IU/L (40-130); Anion Gap 16.3 (5-19); Aspartate Amino Transferase 24 U/L (0-40); Blood Urea Nitrogen 16 mg/dL (8-23); Calcium 8.1 mg/dL (8.5-10.5); Carbon Dioxide 28 mmol/L (22-29); Chloride 96 mmol/L (98-107); Glucose 85 mg/dL (65-115); Magnesium 1.6 mg/dL (1.7-2.3); NT Pro B Type Natriuretic Pept 12055 pg/mL (0-450); Osmolality Calculated 284 mOsm/kg (285-295); Phosphorus 2.7 mg/dL (2.5-4.5); Potassium 3.3 mmol/L (3.5-5.1); Sodium 137 mmol/L (136-145); Total Protein 6.7 g/dL (6.6-8.7)
--- NOTE | 2021-08-08 09:00 | FL_ITS ---
WS: [id number] LIMITED UPPER GI WITH GASTROGRAFIN TECHNICAL: Limited upper GI with Gastrografin pulmonary. Patient difficulty standing with suspected a spiration. Only limited examination could be performed. FLUOROSCOPY TIME: 1.9 minutes CLINICAL INFORMATION: distal esophageal thickening COMPARISON: None. FINDINGS: The patient immediately aspirated Gastrografin on the initial swallows extending into the r ight mainstem bronchus. This elicited only a weak ineffective cough reflex. Small amount of contrast visualized in the left mainstem bronchus is well. Moderate esophageal dysmotility with delayed emptying on the upright imaging. No evidence of high-gra de obstructing mass or lesion. Small mucosal lesions are not excluded. No significant hiatal hernia. Patient was able to ingest small swallows of Gastrografin without aspiration Very limited evaluation of the stomach appears unremarkable. FL/FL upper GI gastrografin [id number] IMPRESSION: Limited evaluation as described above. 1. Active aspiration visualized into the right greater than left mainstem bron chus on the initial swallows. This elicited only a weak cough reflex. Suspect p atient also experiences episodes of silent aspiration. 2. Moderate esophageal dysmotility with delayed emptying on the upright imagin g. No evidence of high-grade obstructing mass or lesion. Smaller mucosal lesion s are not excluded. 3. No significant esophageal hiatal hernia. Limited evaluation of the stomach appears grossly unremarkable. 4. Patient was able to ingest small amounts of Gastrografin without aspiration .
[2021-08-08 09:23] LABS: H. Pylori / CLO Test Negative
--- NOTE | 2021-08-08 13:08 | P.PN_ITS ---
Subjective Subjective: Interval history: Patient was seen this morning, daughters at bedside, he remains on 4 L, denies any shortness of breath, does report increased bilateral extremity swelling, denies any choking, and or any coughing, was placed on a soft mechanical diet, however his chest x-ray this morning shows complete whiteout of right lung, I advised patient and daughter that I will keep him n.p.o. for now, perform her Gastrografin study, chest vest therapy, and based on Gastrografin study we will decide on his ability to take in oral Vitals/I&O/Wt Last Vital Signs Temp 97.6 F 08/08/21 08:00 Pulse 80 08/08/21 08:00 Resp 16 08/08/21 08:00 BP 89/44 08/08/21 08:00 Pulse Ox 92 08/08/21 08:00 08/07/21 08/08/21 08/08/21 22:59 06:59 14:59 Intake Total 560 / 834 100 / 934 100 / 100 Output Total 250 / 250 300 / 550 Balance 310 / 584 -200 / 384 100 / 100 Weight last 48 hrs Weight 74.843 kg Physical Exam Const: COMMON NORMALS: no acute distress and patient oriented x3 Resp: COMMON NORMALS: normal respiratory effort, No retractions and No use of accessory muscles AUSCULTATION: diminished lung sounds on the right Cardio: COMMON NORMALS: regular rate, regular rhythm, S1 normal heart sound present and S2 normal heart sound present RATE: regular rate RHYTHM: reg ular rhythm HEART SOUNDS: S1 normal heart sound present and S2 normal heart sound present GI: COMMON NORMALS: Normal to inspection, nondistended, normoactive bowel sounds present, Soft to palpation and non-tender PALPATION: Yes Soft to palpation Extremity: COMMON NORMALS: no pedal edema Neuro: COMMON NORMALS: patient oriented x3 Psych: COMMON NORMALS: mental status grossly normal Data : 08/08/21 05:58 08/08/21 05:58 Micro: Microbiology 08/07/21 07:44 Gram Stain - Final Lung Right Upper Lobe Bronchoalveolar Lavage Culture - Preliminary 08/06/21 21:00 Blood Culture - Preliminary Blood NEGATIVE TO DATE 08/06/21 19:00 Blood Culture - Preliminary Blood NEGATIVE TO DATE A&P Assessment and plan (1) Aspiration into main bronchus: -Bronchoscopy showed mucous plug in the right mainstem bronchus, and right upper lobe, which was removed -Endoscopic evaluation showed inflammation in the circumferential distribution of the mid esophagus with airway narrowing and sloughing of the mucosa etiology likely related to food impaction versus malignant lesion -Continues to have white out of right lung -Will perform Gastrografin study -Chest vest therapy -Lasix 40 IV twice daily for bilateral lower extremity edema -Primaxin for antibiotic coverage -Monitor respiratory status closely, duo nebs as needed, chest vest therapy -Speech therapy eval -High risk of aspiration -Full code -Lovenox for DVT prophylaxis Status: Acute (2) Recurrent right pleural effusion: Status: Acute (3) Acute urinary retention: Status: Inactive (4) History of lung cancer: Status: Acute (5) Pulmonary hypertension: Status: Acute (6) Aortic valvar stenosis: Status: Acute Qualifiers: Cardiac valve disease etiology: nonrheumatic Qualified Code(s): I35.0 - Nonrheumatic aortic (valve) stenosis (7) Pulmonary hyperinflation: Status: Acute (8) HTN (hypertension): Status: Acute Qualifiers: Hypertension type: essential hypertension Qualified Code(s): I10 - Essential (primary) hypertension (9) CHF (congestive heart failure): Status: Acute Qualifiers: Heart failure type: unspecified Heart failure chronicity: unspecified Qualified Code(s): I50.9 - Heart failure, unspecified Attestations Medical Necessity Statement*: Patient requires hospitalization, inpatient, greater than 2 minutes, for aspiration into main bronchus, complete whiteout of right lung, acute respiratory failure, bilateral from edema, CHF exacerbation, pulmonary hypertension exacerbation Coding Level of Care Code Acute Brick Burner Head for [facility] Fwd Diagnoses Aspiration into main bronchus Recurrent right pleural effusion J90 Acute urinary retention R33.8 History of lung cancer Z85.118 Pulmonary hypertension I27.20 Aortic valvar stenosis I35.0 Cardiac valve disease etiology: nonrheumatic Pulmonary hyperinflation R09.89 HTN (hypertension) I10 Hypertension type: essential hypertension CHF (congestive heart failure) I50.9 Heart failure type: unspecified Heart failure chronicity: unspecified
[2021-08-08] MEDS: diatrizoate meglumine 120 mL Sol PO (13:49)
--- NOTE | 2021-08-08 14:04 | PC.CHAP ---
Pastoral Care Encounter/Spiritual Assessment Type of Contact [] Declined tanker driver visit [] Patient/Family/Request visit [] Outpatient visit [] Follow-up visit [] Physician referral [] Code/Alert [x] Routine visit [] Staff referral [] Actively dying [] Patient sleeping [] Family support [] [] Out of room [] Palliative care [] [x] Receiving care in room [] Pre-surgical visit [] Trauma [] Long length of stay [] ICU visit [] Other: Relational/Emotional Strength [x] Patient feels connected with others/family/visitors/staff [] Distress [] Loneliness/isolation [] Abandonment Spirituality of Patient [] Person of Prudence [] Attends Religion of their Prudence [] Believes in Prayer [] Reads Bible or Protestant materials [] There are Spiritual issues to be addressed Rooms Director Interventions [] Prayer [] Active listening [] Non-anxious presence [] Spiritual/emotional support [] Crisis/trauma care [] Spiritual counseling [] Bereavement support [] Provided bereavement packet [] Provided Bible/devotional materials [] Provided toy/stuffed animal, coloring book to patient or family member [] Provided Communion [] Anointing/[place] [] Salvation [] Completed spiritual assessment [] Other: Impact on Illness or Injury [] Angry [] Fearful [x] Anxious [] Often cries [] Exhaustion [x] Unable to work [] Unable to attend holiness [] Unable to walk/stand [] Unable to read [] Unable to drive [] Unable to eat/drink [] Unable to sleep [] Unable to be with family [] Patient intubated [] Other: Summary he is dealing with COPD negative about his health or whe`n he can go home Time spent with patient 10 mins
[2021-08-08] MEDS: metOLazone 5 MG Tablet 2.5 MG PO (15:02)
[2021-08-08] MEDS: FUROsemide 10 mg/mL SDV 4mL 40 MG IVP ×2 (15:02→21:23)
[2021-08-08] MEDS: fluconazole premix 400 MG/200 ML PIGGYBACK 200 MG IV (16:01)
[2021-08-08] MEDS: magnesium sulfate premix 4 GM/100 ML PREMIX IV (17:15)
[2021-08-08] MEDS: lidocaine 1% 5 ML in potassium chloride premix 100 ML 25 ML IV (17:15)
[2021-08-08] MEDS: pantoprazole 40 mg SDV IVP (20:34)
[2021-08-08] MEDS: enoxaparin 40 mg/0.4 mL Syringe SUBCUT (20:34)
[2021-08-08] MEDS: tamsulosin 0.4 mg Capsule PO (20:34)
[2021-08-08] MEDS: efferdent effervescent 1 EACH DENTAL (21:56)
[2021-08-09] VITALS (9 sets, daily range): BP systolic 91–107; BP diastolic 48–74; PULSE 71–84; RESP 16–20; TEMP 36.4–37.1; O2SAT 92–98
[2021-08-09] MEDS: midodrine 5 mg TABLET PO ×3 (05:32→22:18)
[2021-08-09 06:51] LABS: Basophils # 0.1 10^3/uL (0.0-0.1); Basophils % 0.9 %; Eosinophils # 0.1 10^3/uL (0.0-0.8); Eosinophils % 1.3 %; Hematocrit 37.8 % (42.0-52.0); Hemoglobin 11.8 g/dL (11.7-16.6); Lymphocytes # 0.8 10^3/uL (0.8-4.8); Lymphocytes % 14.5 %; Mean Corpuscular HGB Conc 31.2 g/dL (30.0-36.0); Mean Corpuscular Hemoglobin 26.9 pg (28.0-34.0); Mean Corpuscular Volume 86.1 fl (80-94); Mean Platelet Volume 10.7 fL (7.4-10.4); Monocytes # 0.6 10^3/uL (0.2-0.9); Monocytes % 10.4 %; Neutrophils # 3.86 10^3/uL (1.8-7.7); Neutrophils % 72.7 %; Nucleated Red Blood Cells % 0 %; Platelet Count 160 10^3/cmm (130-400); Red Blood Count 4.39 10^6/uL (4.1-5.3); White Blood Count 5.3 10^3/uL (4.0-10.0)
[2021-08-09 07:11] LABS: Alanine Aminotransferase 15 U/L (0-41); Albumin Level 2.7 g/dL (3.5-5.2); Alkaline Phosphatase 173 IU/L (40-130); Aspartate Amino Transferase 32 U/L (0-40); Blood Urea Nitrogen 15 mg/dL (8-23); Calcium 8.5 mg/dL (8.5-10.5); Carbon Dioxide 36 mmol/L (22-29); Chloride 93 mmol/L (98-107); Globulin 3.9 g/dL (1.3-4.6); Glucose 84 mg/dL (65-115); Magnesium 2.1 mg/dL (1.7-2.3); Osmolality Calculated 286 mOsm/kg (285-295); Phosphorus 2.8 mg/dL (2.5-4.5); Sodium 138 mmol/L (136-145); Total Protein 6.6 g/dL (6.6-8.7)
[2021-08-09 07:58] LABS: NT Pro B Type Natriuretic Pept 11101 pg/mL (0-450)
--- NOTE | 2021-08-09 08:51 | XR_ITS ---
WS: [id number] Exam: XR chest 1V portable [id number] Date/Time of Exam: 08/09/2021 8:52 AM Reason For Exam: sob Comparison 08/08/2021. A small amount of ventilated lung parenchyma noted in the right upper lobe on today's study. There is white out of the remaining aspects of the right pleural cavity. The left lung is fully expanded. Mil d infiltrate in the left lower lung zone with vascular redistribution. Heart size appears to be stabl e but the right heart border is obscured. XR/XR chest 1V portable [id number] IMPRESSION: 1. Small amount of the ventilated lung parenchyma in the right upper lobe on to day's exam. There is white out of the remaining right pleural cavity. 2. Small infiltrate in the left base. No other change since prior study.
[2021-08-09] MEDS: valACYclovir 1,000 mg Tablet 500 MG PO (08:54)
[2021-08-09] MEDS: potassium chloride oral liq 20 mEq/15 mL UDC PO (08:55)
[2021-08-09] MEDS: levothyroxine 100 mcg Tablet PO (08:55)
[2021-08-09] MEDS: FUROsemide 10 mg/mL SDV 4mL 40 MG IVP ×2 (08:55→22:45)
[2021-08-09] MEDS: metOLazone 5 MG Tablet 2.5 MG PO (08:55)
[2021-08-09] MEDS: lidocaine 1% 5 ML in potassium chloride premix 100 ML 25 ML IV (09:36)
[2021-08-09] MEDS: fluconazole premix 200 MG/100 ML PREMIX 100 MG IV (14:45)
--- NOTE | 2021-08-09 15:06 | P.PN_ITS ---
Subjective Subjective: Interval history: Patient was seen this morning, no fevers, chills, nausea, no vomiting, sitting up in bed on 4 L, currently on a modified diet, no choking episode, no coughing episodes, no fevers, no chills, denies any difficulty swallowing Vitals/I&O/Wt Last Vital Signs Temp 97.6 F 08/09/21 08:00 Pulse 81 08/09/21 14:41 Resp 20 H 08/09/21 14:41 BP 94/52 08/09/21 11:39 Pulse Ox 93 08/09/21 14:41 08/09/21 08/09/21 08/09/21 06:59 14:59 22:59 Intake Total 160 / 1225 565 / 565 Output Total 1675 / 2925 650 / 650 Balance -1515 / -1700 -85 / -85 Physical Exam Const: COMMON NORMALS: no acute distress ORIENTATION/CONSCIOUSNESS: Yes awake, Yes oriented to person, Yes oriented to place and Yes oriented to time Resp: COMMON NORMALS: normal respiratory effort, No retractions, No use of accessory muscles and clear to auscultation bilaterally AUSCULTATION: clear to auscultation bilaterally Cardio: COMMON NORMALS: regular rate, regular rhythm, S1 normal heart sound present and S2 normal heart sound present RATE: regular rate RHYTHM: regular rhythm HEART SOUNDS: S1 normal heart sound present and S2 normal heart sound present GI: COMMON NORMALS: Normal to inspection, nondistended, normoactive bowel sounds present, Soft to palpation and non-tender PALPATION: Yes Soft to p alpation Extremity: COMMON NORMALS: no pedal edema Neuro: SENSORIUM/ORIENTATION: Yes oriented to person, Yes oriented to place and Yes oriented to time Data : 08/09/21 06:02 08/09/21 06:02 Micro: Microbiology 08/07/21 07:44 Mycobacterial Smear - Preliminary Body Fluids - Bronchial 08/07/21 07:44 Fungal Smear - Preliminary Sputum - Endotracheal Wash 08/07/21 07:44 Gram Stain - Final Lung Right Upper Lobe Bronchoalveolar Lavage Culture - Preliminary A&P Assessment and plan (1) Aspiration into main bronchus: -Bronchoscopy showed mucous plug in the right mainstem bronchus, and right upper lobe, which was removed -Endoscopic evaluation showed inflammation in the circumferential distribution of the mid esophagus with airway narrowing and sloughing of the mucosa etiology likely related to food impaction versus malignant lesion -Gastrografin study 1. Active aspiration visualized into the right greater than left mainstem bronchus on the initial swallows. This elicited only a weak cough reflex. Suspect patient also experiences episodes of silent aspiration. 2. Moderate esophageal dysmotility with delayed emptying on the upright imaging. No evidence of high-grade obstructing mass or lesion. Smaller mucosal lesions are not excluded. 3. No significant esophageal hiatal hernia. Limited evaluation of the stomach appears grossly unremarkable. 4. Patient was able to ingest small amounts of Gastrografin without aspiration. -Patient is diet was modified with speech therapy's help to nectar thickened -Chest vest therapy -Lasix 40 IV twice daily for bilateral lower extremity edema, with Bumex -Primaxin for antibiotic coverage -Biopsy of site so far shows Lorenza species, start IV fluconazole for candidal esophagitis -Monitor respiratory status closely, duo nebs as needed, chest vest therapy -Chest x-ray this morning shows improved aeration slightly in the right upper lobe -Speech therapy eval -High risk of aspiration -We will have patient follow-up for GI for possible esophageal motility disorder -Full code -Lovenox for DVT prophylaxis Status: Acute (2) Recurrent right pleural effusion: Status: Acute (3) Acute urinary retention: Status: Inactive (4) History of lung cancer: Status: Acute (5) Pulmonary hypertension: Status: Acute (6) Aortic valvar stenosis: Status: Acute Qualifiers: Cardiac valve disease etiology: nonrheumatic Qualified Code(s): I35.0 - Nonrheumatic aortic (valve) stenosis (7) Pulmonary hyperinflation: Status: Acute (8) HTN (hypertension): Status: Acute Qualifiers: Hypertension type: essential hypertension Qualified Code(s): I10 - Essential (primary) hypertension (9) CHF (congestive heart failure): Status: Acute Qualifiers: Heart failure type: unspecified Heart failure chronicity: unspecified Qualified Code(s): I50.9 - Heart failure, unspecified (10) Diastolic CHF, acute on chronic: Status: Acute (11) Pulmonary hypertension: Status: Acute (12) Pneumonia: Status: Acute (13) Mucus plugging of bronchi: Status: Acute (14) Dysphagia: Status: Acute (15) Abnormal CT scan, esophagus: Status: Acute Attestations Medical Necessity Statement*: Patient requires hospitalization for aspiration, acute on chronic diastolic CHF exacerbation, candidal esophagitis, Coding Level of Care Code Acute [employer] Diagnoses Aspiration into main bronchus Recurrent right pleural effusion J90 Acute urinary retention R33.8 History of lung cancer Z85.118 Pulmonary hypertension I27.20 Aortic valvar stenosis I35.0 Cardiac valve disease etiology: nonrheumatic Pulmonary hyperinflation R09.89 HTN (hypertension) I10 Hypertension type: essential hypertension CHF (congestive heart failure) I50.9 Heart failure type: unspecified Heart failure chronicity: unspecified Diastolic CHF, acute on chronic I50.33 Pulmonary hypertension I27.20 Pneumonia J18.9 Mucus plugging of bronchi T17.500A Dysphagia R13.[address] scan, esophagus R93.3
[2021-08-09] MEDS: enoxaparin 40 mg/0.4 mL Syringe SUBCUT (21:40)
[2021-08-09] MEDS: tamsulosin 0.4 mg Capsule PO (21:41)
[2021-08-09] MEDS: pantoprazole 40 mg SDV IVP (22:35)
[2021-08-10] VITALS (7 sets, daily range): BP systolic 83–97; BP diastolic 48–62; PULSE 18–84; RESP 17–20; TEMP 36.5–36.6; O2SAT 91–99
[2021-08-10] MEDS: midodrine 5 mg TABLET PO (04:39)
--- NOTE | 2021-08-10 04:42 | PC.NURSE ---
bp 58, Dr. Fuentes notified, ordered to give scheduled midodrine early now.
[2021-08-10 06:39] LABS: Basophils % 0.5 %; Eosinophils # 0.1 10^3/uL (0.0-0.8); Eosinophils % 0.6 %; Hematocrit 40.1 % (42.0-52.0); Hemoglobin 12.6 g/dL (11.7-16.6); Lymphocytes % 12.3 %; Mean Corpuscular HGB Conc 31.4 g/dL (30.0-36.0); Mean Corpuscular Hemoglobin 26.9 pg (28.0-34.0); Mean Corpuscular Volume 85.7 fl (80-94); Mean Platelet Volume 10.4 fL (7.4-10.4); Monocytes # 0.9 10^3/uL (0.2-0.9); Monocytes % 11.4 %; Neutrophils # 5.76 10^3/uL (1.8-7.7); Neutrophils % 74.9 %; Nucleated Red Blood Cells % 0 %; Platelet Count 166 10^3/cmm (130-400); Red Blood Count 4.68 10^6/uL (4.1-5.3); Red Cell Distribution Width 16.2 % (12.1-15.1); White Blood Count 7.7 10^3/uL (4.0-10.0)
--- NOTE | 2021-08-10 07:00 | XRR_ITS ---
PROCEDURE INFORMATION: Exam: XR Chest Exam date and time: 08/10/2021 7:00 AM Age: 76 years old Clinical indication: Shortness of breath; Patient HX: Covid; Additional info: SOB TECHNIQUE: Imaging protocol: XR of the chest. Views: 1 view. COMPARISON: CR XR chest 1V portable [id number] 08/09/2021 8:56 AM FINDINGS: Lungs: Postsurgical changes of right lower lobectomy. Slight interval improvement in aeration of the right upper lobe. Persistent opacification of the lower right hemithorax with volume loss and pleural effusion at base and apex. The left lung is again noted to be hyperinflated with prominent interstitial markings but no focal consolidation. Pleural spaces: As above. No left pleural effusion. No pneumothorax. Heart/Mediastinum: There is again rightward shift of the heart and mediastinal structures. Heart size cannot be reliably estimated. Bones/joints: No acute bony abnormality. XR/XR chest 1V portable [id number] IMPRESSION: Interval slight improved aeration of the residual right upper lobe. No new abnormality. Radiation Dose CTDIVOL = (mGy): DLP = (mGy-cm)
[2021-08-10 07:02] LABS: Alanine Aminotransferase 13 U/L (0-41); Albumin Level 2.6 g/dL (3.5-5.2); Alkaline Phosphatase 170 IU/L (40-130); Aspartate Amino Transferase 27 U/L (0-40); Blood Urea Nitrogen 16 mg/dL (8-23); Calcium 8.7 mg/dL (8.5-10.5); Carbon Dioxide 39 mmol/L (22-29); Chloride 90 mmol/L (98-107); Globulin 4.3 g/dL (1.3-4.6); Glucose 110 mg/dL (65-115); Magnesium 1.9 mg/dL (1.7-2.3); Osmolality Calculated 284 mOsm/kg (285-295); Phosphorus 3.3 mg/dL (2.5-4.5); Sodium 136 mmol/L (136-145); Total Bilirubin 1.1 mg/dL (0.15-1.2); Total Protein 6.9 g/dL (6.6-8.7)
[2021-08-10 07:11] LABS: Anion Gap 10.2 (5-19); Potassium 3.2 mmol/L (3.5-5.1)
[2021-08-10 07:39] LABS: NT Pro B Type Natriuretic Pept 10493 pg/mL (0-450)
[2021-08-10] MEDS: valACYclovir 1,000 mg Tablet 500 MG PO (08:42)
[2021-08-10] MEDS: potassium chloride oral liq 20 mEq/15 mL UDC PO (08:42)
[2021-08-10] MEDS: FUROsemide 10 mg/mL SDV 4mL 40 MG IVP (08:42)
[2021-08-10] MEDS: levothyroxine 100 mcg Tablet PO (08:42)
[2021-08-10] MEDS: metOLazone 5 MG Tablet 2.5 MG PO (08:42)
[2021-08-10] MEDS: lidocaine 1% 5 ML in potassium chloride premix 100 ML 25 ML IV (09:21)
--- NOTE | 2021-08-10 10:17 | PC.SOCIAL ---
IMM update IMM updated with patient and daughter at bedside. Copy Pg 2 provided. Verbalized an understanding. Initialled, dated, time, and placed in chart.
--- NOTE | 2021-08-10 11:59 | PM.DCS ---
Discharge Providers Date of Admission: 08/07/21 15:46 Date of Discharge: August 10, 2021 Attending Provider at Admission: Yoni Benson MD Attending Provider at Discharge: Yoni Benson MD Primary Care Provider: Rhys Ramos MD Diagnoses at Discharge Discharge Diagnosis (1) Aspiration into main bronchus: Status: Acute (2) Recurrent right pleural effusion: Status: Acute (3) Acute urinary retention: Status: Inactive (4) History of lung cancer: Status: Acute (5) Pulmonary hypertension: Status: Acute (6) Aortic valvar stenosis: Status: Acute Qualifiers: Cardiac valve disease etiology: nonrheumatic Qualified Code(s): I35.0 - Nonrheumatic aortic (valve) stenosis (7) Pulmonary hyperinflation: Status: Acute (8) HTN (hypertension): Status: Acute Qualifiers: Hypertension type: essential hypertension Qualified Code(s): I10 - Essential (primary) hypertension (9) CHF (congestive heart failure): Status: Acute Qualifiers: Heart failure type: unspecified Heart failure chronicity: unspecified Qualified Code(s): I50.9 - Heart failure, unspecified (10) Diastolic CHF, acute on chronic: Status: Acute (11) Pulmonary hypertension: Status: Acute (12) Pneumonia: Status: Acute (13) Mucus plugging of bronchi: Status: Acute (14) Dysphagia: Status: Acute (15) Abnormal CT scan, esophagus: Status: Acute Reason for Visit Reason for Visit: ASPIRATION - - -- RM 257 Hospital Course Hospital Course Patient was admitted to [facility] due to evidence of aspiration into right mainstem bronchus Aspiration into main bronchus: -Bronchoscopy showed mucous plug in the right mainstem bronchus, and right upper lobe, which was removed -Endoscopic evaluation showed inflammation in the circumferential distribution of the mid esophagus with airway narrowing and sloughing of the mucosa etiology likely related to food impaction versus malignant lesion -Gastrografin study 1. Active aspiration visualized into the right greater than left mainstem bronchus on the initial swallows. This elicited only a weak cough reflex. Suspect patient also experiences episodes of silent aspiration. 2. Moderate esophageal dysmotility with delayed emptying on the upright imaging. No evidence of high-grade obstructing mass or lesion. Smaller mucosal lesions are not excluded. 3. No significant esophageal hiatal hernia. Limited evaluation of the stomach appears grossly unremarkable. 4. Patient was able to ingest small amounts of Gastrografin without aspiration. -Patient is diet was modified with speech therapy's help to nectar thickened, pur?ed diet -Chest vest therapy -He also had pulmonary hypertension, acute on chronic diastolic CHF exacerbation, requiring inpatient diuretic therapy, received Lasix 40 IV twice daily for bilateral lower extremity edema, with metolazone, improved, discharged on his home Lasix therapy -Primaxin for antibiotic coverage for aspiration event, discharged on Augmentin -Biopsy of site so far shows Lorenza species, start IV fluconazole for candidal esophagitis, tolerated well, discharged on 12 remaining days of fluconazole -Monitor respiratory status closely, chest vest therapy as outpatient -Chest x-ray this morning shows improved aeration slightly in the right upper lobe, follow-up with pulmonary as outpatient -Speech therapy eval, as above, -High risk of aspiration in the near future, discussed possibility of PEG tube placement, discussed morbidity and probably associate with his high aspiration risk, he voiced understanding, all questions answered, agreed to proceed conservative interventions -We will have patient follow-up for GI for possible esophageal motility disorder -Continue pur?ed diet, nectar thick liquid -Chin tuck, aspiration precautions -For candidal esophagitis continue fluconazole for 12 remaining days -For pneumonia, aspiration continue Augmentin for 5 remaining days -Continue Lasix as prescribed -Follow-up with primary care provider on Thursday for recheck creatinine and potassium level -If you have worsening shortness of breath please go to emergency room Physical Exam Const: COMMON NORMALS: no acute distress and patient oriented x3 Resp: COMMON NORMALS: normal respiratory effort, No retractions, No use of accessory muscles and clear to auscultation bilaterally AUSCULTATION: clear to auscultation bilaterally Cardio: COMMON NORMALS: regular rate, regular rhythm, S1 normal heart sound present and S2 normal heart sound present RATE: regular rate RHYTHM: regular rhythm HEART SOUNDS: S1 normal heart sound present and S2 normal heart sound present GI: COMMON NORMALS: Normal to inspection, nondistended, normoactive bowel sounds present, Soft to palpation and non-tender PALPATION: Yes Soft to palpation Extremity: COMMON NORMALS: no pedal edema Neuro: COMMON NORMALS: patient oriented x3 Psych: COMMON NORMALS: mental status grossly normal Discharge Data Data Completed and Pending: Completed Studies During Hospitalization Category Date Time Status FL upper GI gastr ografin [id number] Rout ine Exams 08/08/21 09:00 Completed XR chest 1V leela ble [id number] Routine Exams 08/07/21 07:00 Completed XR chest 1V lelea ble [id number] Routine Exams 08/08/21 07:00 Completed XR chest 1V leela ble [id number] Routine Exams 08/09/21 08:51 Completed XR chest 1V leela ble [id number] Routine Exams 08/10/21 07:00 Completed Pathology: Surgic al [PTH] Routine Pth 08/07/21 07:55 Completed Pending at discharge Category Date Time Status Blood Culture Rou yara Lab 08/06/21 21:00 Results Bronchoalv Lavage Culture & GS Rout ine Lab 08/07/21 07:44 Results Complete Blood Co unt w/Auto AM LABS Lab 08/11/21 04:00 Ordered Complete Blood Co unt w/Auto AM LABS Lab 08/12/21 04:00 Ordered Comprehensive Met abolic Panel AM LA BS Lab 08/11/21 04:00 Ordered Comprehensive Met abolic Panel AM LA BS Lab 08/12/21 04:00 Ordered Fungal Culture no t HR/SK/BL Routine Lab 08/07/21 07:44 Results Helicobacter Pylo ri AG Stool Stat Lab 08/08/21 15:06 Uncollected Magnesium AM LABS Lab 08/11/21 04:00 Ordered Magnesium AM LABS Lab 08/12/21 04:00 Ordered Mycobacteria, Cul ture w/Fluor Routi ne Lab 08/07/21 07:44 Results Phosphorus AM LAB S Lab 08/11/21 04:00 Ordered Phosphorus AM LAB S Lab 08/12/21 04:00 Ordered Labs from last 24 hours 08/10/21 08/10/21 08/10/21 05:22 05:22 05:22 WBC 7.7 RBC 4.68 Hgb 12.6 Hct 40.1 L MCV 85.7 MCH 26.9 L MCHC 31.4 RDW 16.2 H Plt Count 166 MPV 10.4 Neut % (Auto) 74.9 Lymph % (Auto) 12.3 Christian % (Auto) 11.4 Eos % (Auto) 0.6 Baso % (Auto) 0.5 Neut # (Auto) 5.76 Lymph # (Auto) 1.0 Christian # (Auto) 0.9 Eos # (Auto) 0.1 Baso # (Auto) 0.0 Nucleated RBC % (a uto) 0 Nucleated RBCs # 0.0 Sodium 136 Potassium 3.2 L Chloride 90 L Carbon Dioxide 39 H Anion Gap 10.2 BUN 16 Creatinine 0.8 GFR Calculation Not Reportable Glucose 110 Calculated Osmolal ity 284 L Calcium 8.7 Phosphorus 3.3 Magnesium 1.9 Total Bilirubin 1.1 AST 27 ALT 13 Alkaline Phosphata se 170 H NT-Pro-B Natriuret Pep 86420 H Total Protein 6.9 Albumin 2.6 L Globulin 4.3 Vitals: Last Vital Signs Temp 97.7 F 08/10/21 11:35 Pulse 80 08/10/21 11:35 Resp 20 H 08/10/21 11:35 BP 83/52 08/10/21 11:35 Pulse Ox 99 08/10/21 11:35 Discharge Plan Discharge Patient Disposition: Home Condition: Stable Prescriptions: New amoxicillin-pot clavulanate [Augmentin] 875-125 mg tablet 1 tab PO BID 5 Days Qty: 10 RF: 0 fluconazole 200 mg tablet 200 mg PO DAILY 12 Days Qty: 12 RF: 0 Continued albuterol sulfate 2.5 mg /3 mL (0.083 %) solution for nebulization 2.5 mg inhalation TID RF: 0 cetirizine [Zyrtec] 10 mg tablet 10 mg PO QAM RF: 0 guaifenesin [Mucinex] 600 mg tablet extended release 12hr 600 mg PO QAM RF: 0 nystatin 100,000 unit/mL suspension 1 ml PO QID PRN (Reason: Mouth Irritation) RF: 0 valacyclovir [Valtrex] 500 mg tablet 500 mg PO DAILY RF: 0 sildenafil (pulm.hypertension) 20 mg tablet See Rx Instructions .ROUTE .COMPLEX Qty: 270 RF: 3 Trelegy Ellipta 100-62.5-25 mcg Blister With Device 1 inh INHALATION DAILY RF: 0 metolazone 2.5 mg tablet 2.5 mg PO DAILY RF: 0 azithromycin 250 mg tablet 250 mg PO .MON,WED,FRI RF: 0 potassium chloride 10 mEq tablet extended release 20 meq PO BID RF: 0 tamsulosin 0.4 mg capsule 0.4 mg PO BEDTIME RF: 0 Pyridium 100 mg tablet 100 mg PO Q8H PRN (Reason: Pain) RF: 0 furosemide 40 mg Tablet See Rx Instructions .ROUTE .COMPLEX RF: 0 Discontinued bumetanide 1 mg tablet See Rx Instructions .ROUTE .COMPLEX RF: 0 levofloxacin 750 mg tablet 750 mg PO DAILY 6 Days Qty: 6 RF: 0 Discharge Orders: Discharge Order (Routine); Ordered 08/10/21 Ordered By: Yoni Benson Referrals: Jay Benitez DO [Referring] - 1 month (esophageal dysmotility) Rhys Ramos MD [Primary Care Provider] - 1 week Kayleen Chen MD [Physician] - 1 week Discharge Diet: As Directed Discharge Activity: Resume usual activity Patient Instructions: GI Discharge Instructions, Opioid Safety Activity Restrictions/Additional Instructions: -Continue pur?ed diet, nectar thick liquid -Chin tuck, aspiration precautions -For candidal esophagitis continue fluconazole for 12 remaining days -For pneumonia, aspiration continue Augmentin for 5 remaining days -Continue Lasix as prescribed -Follow-up with primary care provider on Thursday for recheck creatinine and potassium level -If you have worsening shortness of breath please go to emergency room Discharge Attestations Time Spent in Discharge Care*: less than 30 min Quality Metrics Clinical Quality Measures During this hospital stay, did patient experience: None Coding Level of Care Code Acute Chg FW DC note Diagnoses Aspiration into main bronchus Recurrent right pleural effusion J90 Acute urinary retention R33.8 History of lung cancer Z85.118 Pulmonary hypertension I27.20 Aortic valvar stenosis I35.0 Cardiac valve disease etiology: nonrheumatic Pulmonary hyperinflation R09.89 HTN (hypertension) I10 Hypertension type: essential hypertension CHF (congestive heart failure) I50.9 Heart failure type: unspecified Heart failure chronicity: unspecified Diastolic CHF, acute on chronic I50.33 Pulmonary hypertension I27.20 Pneumonia J18.9 Mucus plugging of bronchi T17.500A Dysphagia R13.[address] scan, esophagus R93.3
--- NOTE | 2021-08-13 11:03 | PC.SOCIAL ---
discharge summary faxes to Dr. Benitez office, they will call the patient with an appointment once they review pts info.
--- NOTE | 2021-08-19 14:47 | PC.SOCIAL ---
Sent referral with diagnosis to Dr Benitez office per request by clinic. They will call patient with appt.
== END 2021-08-10 14:32 | disposition home health service (06) | DRG 177 ==
PROVIDERS: Internal Medicine Critical Care Medicine; Admitting Provider Family Medicine; PCP Family Medicine; Visit Provider Family Medicine
PROC: 0DJ08ZZ Inspection of Upper Intestinal Tract, Via Natural or Artificial Opening Endoscopic (ICD-10-PCS; CPT 43235; principal; 2021-08-07 07:00)
PROC: 0BJ08ZZ Inspection of Tracheobronchial Tree, Via Natural or Artificial Opening Endoscopic (ICD-10-PCS; CPT 31622; 2021-08-07 07:00)
DX: J69.0 Pneumonitis due to inhalation of food and vomit (principal); I50.33 Acute on chronic diastolic (congestive) heart failure; Z85.6 Personal history of leukemia; Z85.118 Personal history of other malignant neoplasm of bronchus and lung; Z90.2 Acquired absence of lung [part of]; I27.20 Pulmonary hypertension, unspecified; I35.0 Nonrheumatic aortic (valve) stenosis; I11.0 Hypertensive heart disease with heart failure; Z87.891 Personal history of nicotine dependence; R33.9 Retention of urine, unspecified; K20.90 Esophagitis, unspecified without bleeding; Z79.51 Long term (current) use of inhaled steroids
CPT/HCPCS: 12345; 31622; 31624; 36415; 43239; 71045; 74240; 80053; 83735; 83880; 84100; 84145; 84443; 85025; 86140; 87015; 87040; 87070; 87077; 87102; 87116; 87205; 87206; 87801; 88305; 92526; 92610; 94640; 94664; 94667; 94669; 96372; 97110; 97116; 97162; 97165; C9113; G0378; G0379; J0330; J0743; J1450; J1650; J1940; J2370; J2704; J3010; J3475; J3480; J3490; J7030; J7611; Q9963

== ENCOUNTER 2021-08-23 11:00 | Emergency (ER) | payer MEDICARE, BC, SELFPAY ==
[2021-08-23 11:00] VITALS: BP 71/49; PULSE 80; RESP 7; O2SAT 95
--- NOTE | 2021-08-23 11:03 | W.ED.FALL ---
HPI - Fall General: Chief Complaint: Fall Stated Complaint: FALL, HYPOTENSION Time Seen by Provider: 08/23/21 11:02 History of Present Illness: HPI Narrative: Mr. Bhatia is a 76-year-old gentleman with complex past medical history including pulmonary hypertension, aortic stenosis, hypertension, CHF who presents to the emergency department due to low blood pressure and fall. He reports feeling okay this morning, he did complete his breathing therapy after recent hospitalization for aspiration pneumonia with mucous plug and then went to the bathroom. He describes waking up on the ground. He endorses left hip pain and he has a number of skin tears. He is unsure if he hit his head. EMS found the patient be hypotensive and even after approximately 700 cc of fluid blood pressure still 80 systolic. No chest pain or worsening shortness of breath. No signs of infectious symptoms. No other specific changes in health, exacerbating, relieving factors identified. Review of Systems General: Reports: 10 or more systems reviewed and unremarkable except in HPI and below PFSH ED PFSH: Medical History AML (acute myeloblastic leukemia) Aortic valvar stenosis CHF (congestive heart failure) History of DVT (deep vein thrombosis) HTN (hypertension) Pulmonary hyperinflation Urinary retention Surgical History History of bone marrow biopsy S/P carpal tunnel release left S/P cholecystectomy S/P knee surgery left S/P thoracotomy Family History Brother CAD (coronary artery disease) Cancer Social History Quit status (tobacco): has quit using tobacco Year quit tobacco: 1987 - 2PPD x 30 Years Second hand smoke exposure: No Smoking risk assessment/counseling performed?: Yes Alcohol intake: never Lives independently: Yes Household members: spouse Marital status: / service: Yes Current occupational status: retired Pets and animals: Yes Pets & animals: cat(s) Pets & animal details: outside History of recent travel: No Current gender identity: Male Physical Exam Narrative: EXAM NARRATIVE: GENERAL/CONSTITUTIONAL -ill-appearing. No acute distress. Eyes - PERRL, no conjunctival injection ENMT - Atraumatic external nose and ears. Jaw alignment normal. No garduno signs or raccoon eyes. Moist mucous membranes NECK - supple. trachea midline CARDIOVASCULAR - regular rate and rhythm. Peripheral pulses 2+ and equal RESPIRATORY -clear to auscultation bilaterally. No retractions or accessory muscle use. ABDOMEN/GI -mild generalized tenderness to palpation. MSK -pain to palpation. Distal CMS intact on all extremities. SKIN - Warm, Dry NEURO - alert and appropriately oriented. No focal neurologic deficits. Slowed responses. Course ED course: - Patient was seen and evaluated by me at bedside - Patient placed on cardiac monitors, IV access obtained - Initial evaluation notable for hypotension, ill appearance. Slowed responses letter no focal neurologic deficits. - Bedside ultrasound performed of the IVC and limited cardiac, challenging to assess patient's tolerance for additional IV fluids, less than 50% collapse of the IVC though patient does require additional fluids for blood pressure. We will plan to do 500 cc aliquots with frequent reassessment - Labs notable for no leukocytosis, hemoglobin lower than baseline. No active hemorrhage identified on head to toe exam at this time. Mild hypokalemia on metabolic panel, replenishment ordered. BNP is elevated. TSH elevated with mildly low free T4. - Given patient's unexplained hypotension as well as delayed responses in the context of trauma imaging is warranted. CT head and neck are negative for acute traumatic injury. CT chest abdomen pelvis without acute traumatic injury. He does have history of right lower and middle lobe lobectomy, there is small effusion. Patient recently had hospitalization for mucous plugging of right lung, patient does not report symptoms consistent with pneumonia as queried on CT read. The patient has comminuted intertrochanteric left femoral fracture with angulation and avulsion of the lesser trochanter - Upon serial reexamination after treatment the patient was improved with regards to mentation. MAP greater than 60 with additional aliquots of fluid. - The patient has a very high degree of medical complexity. I discussed the need for surgery with the patient and his family. The patient and his family desire transfer to [place] for definitive treatment of orthopedic injuries. This is reasonable a as patient is at high risk for complications and deterioration. - Patient will be ED to ED transfer for trauma. Discussed with accepting physician. - Patient transferred from the ED in somewhat improved condition, blood pressure remains low end of satisfactorily. There is no evidence of active hemorrhage on CT scan or clinical exam, there is no significant swelling or evidence of expanding hematoma on hip exam or other extremity exam. Vital Signs: Vital signs: Vital Signs Pulse Rate 73 08/23/21 14:30 Respiratory Rate 20 H 08/23/21 11:28 Blood Pressure 79/49 08/23/21 14:30 Pulse Oximetry 96 08/23/21 14:30 MDM - Fall Medical Records: Attestation: I reviewed the patient's medical records. Lab Data: Attestation: I reviewed the patient's lab results. Labs: Lab Results 08/23/21 08/23/21 08/23/21 12:32 12:32 12:53 WBC RBC Hgb Hct MCV MCH MCHC RDW Plt Count MPV Neut % (Auto) Lymph % (Auto) [place]pine % (Auto) Eos % (Auto) Baso % (Auto) Neut # (Auto) Lymph # (Auto) Alpine # (Auto) Eos # (Auto) Baso # (Auto) Nucleated RBC % (a uto) Nucleated RBCs # Sodium 136 mmol/L mmol/L (136-145) Potassium 3.3 mmol/L L mmol /L (3.5-5.1) Chloride 100 mmol/L mmol/L (98-107) Carbon Dioxide 24 mmol/L mmol/L (22-29) Anion Gap 15.3 (5-19) BUN 24 mg/dL H mg/dL (8-23) Creatinine 0.8 mg/dL mg/dL (0.7-1.2) GFR Calculation Not Reportable Glucose 106 mg/dL mg/dL (65-115) Calculated Osmolal ity 286 mOsm/kg mOsm/ kg (285-295) Calcium 7.5 mg/dL L mg/dL (8.5-10.5) Total Bilirubin 0.7 mg/dL mg/dL (0.15-1.2) AST 58 U/L H U/L (0-40) ALT 62 U/L H U/L (0-41) Alkaline Phosphata se 226 IU/L H IU/L (40-130) Troponin T Baselin e 32 ng/L H ng/L (0-15) Troponin T 120 Min [place] Delta Troponin T NT-Pro-B Natriuret Pep 7738 pg/mL H pg/m L (0-450) Total Protein 6.4 g/dL L g/dL (6.6-8.7) Albumin 2.4 g/dL L g/dL (3.5-5.2) Globulin 4.0 g/dL g/dL (1.3-4.6) TSH 13.77 uIU/mL H uI U/mL (0.27-4.20) Free T4 SARS-CoV-2 Ag (Rap id) Blood Type A Positive Rho(D) Type Positive Antibody Screen Negative 08/23/21 08/23/21 08/23/21 12:53 13:32 14:26 WBC 7.8 10^3/uL 10^3/ uL (4.0-10.0) RBC 3.68 10^6/uL L 10 ^6/uL (4.1-5.3) Hgb 10.0 g/dL L g/dL (11.7-16.6) Hct 33.3 % L % (42.0-52.0) MCV 90.5 fl fl (80-94) MCH 27.2 pg L pg (28.0-34.0) MCHC 30.0 g/dL g/dL (30.0-36.0) RDW 17.6 % H % (12.1-15.1) Plt Count 153 10^3/cmm 10^3 /cmm (130-400) MPV 10.3 fL fL (7.4-10.4) Neut % (Auto) 83.0 % % Lymph % (Auto) 8.7 % % Alpine % (Auto) 7.0 % % Eos % (Auto) 0.5 % % Baso % (Auto) 0.3 % % Neut # (Auto) 6.49 10^3/uL 10^3 /uL (1.8-7.7) Lymph # (Auto) 0.7 10^3/uL L 10^ 3/uL (0.8-4.8) Alpine # (Auto) 0.6 10^3/uL 10^3/ uL (0.2-0.9) Eos # (Auto) 0.0 10^3/uL 10^3/ uL (0.0-0.8) Baso # (Auto) 0.0 10^3/uL 10^3/ uL (0.0-0.1) Nucleated RBC % (a uto) 0 % % Nucleated RBCs # 0.0 /100WBC /100W BC Sodium Potassium Chloride Carbon Dioxide Anion Gap BUN Creatinine GFR Calculation Glucose Calculated Osmolal ity Calcium Total Bilirubin AST ALT Alkaline Phosphata se Troponin T Baselin e Troponin T 120 Min [place] Delta Troponin T NT-Pro-B Natriuret Pep Total Protein Albumin Globulin TSH Free T4 0.71 ng/dL L ng/d L (0.82-1.77) SARS-CoV-2 Ag (Rap id) Negative (Negative) Blood Type Rho(D) Type Antibody Screen 08/23/21 14:37 WBC RBC Hgb Hct MCV MCH MCHC RDW Plt Count MPV Neut % (Auto) Lymph % (Auto) Alpine % (Auto) Eos % (Auto) Baso % (Auto) Neut # (Auto) Lymph # (Auto) [place] # (Auto) Eos # (Auto) Baso # (Auto) Nucleated RBC % (a uto) Nucleated RBCs # Sodium Potassium Chloride Carbon Dioxide Anion Gap BUN Creatinine GFR Calculation Glucose Calculated Osmolal ity Calcium Total Bilirubin AST ALT Alkaline Phosphata se Troponin T Baselin e Troponin T 120 Min [place] 34.15 ng/L H ng/L (0-15) Delta Troponin T 2.15 ABS# ABS# (0-10) NT-Pro-B Natriuret Pep Total Protein Albumin Globulin TSH Free T4 SARS-CoV-2 Ag (Rap id) Blood Type Rho(D) Type Antibody Screen EKG Data^: EKG 1: Attestation: I personally reviewed and interpreted this EKG as follows: EKG interpretation date: 08/23/21 EKG interpretation time: 11:34 Interpretation: Twelve-lead EKG shows a regular rhythm at a rate of 76. GA interval 208, QRS duration 142, QTc 410. Right axis. Interpretation: Sinus rhythm. First-degree AV block. Right bundle branch block. Similar to prior. Critical Care Time Critical Care Time: Critical Care Time: Yes Total Critical Care Time: 45 Attestation: Due to a high probability of clinically significant, possibly life threatening deterioration, the patient required my highest level of attention and preparedness to intervene emergently and I personally spent this critical care time directly and personally managing the patient. This critical care time included obtaining a history; examining the patient; pulse oximetry; ordering and review of laboratory and imaging studies; arranging urgent treatment with development of a management plan; evaluation of patient's response to treatment; frequent reassessment; and, discussions with other providers as applicable. It was exclusive of separately billable procedures. Discharge Plan Discharge Patient Disposition: Transfer to ED Clinical Impression: Syncope, Hypotension, Closed hip fracture, Trauma Prescriptions: No Action albuterol sulfate 2.5 mg /3 mL (0.083 %) solution for nebulization 2.5 mg inhalation TID PRN (Reason: Shortness Of Breath) RF: 0 cetirizine [Zyrtec] 10 mg tablet 10 mg PO QAM RF: 0 guaifenesin [Mucinex] 600 mg tablet extended release 12hr 600 mg PO QAM RF: 0 nystatin 100,000 unit/mL suspension 1 ml PO QID PRN (Reason: Mouth Irritation) RF: 0 valacyclovir [Valtrex] 500 mg tablet 500 mg PO DAILY RF: 0 tamsulosin 0.4 mg capsule 0.4 mg PO BEDTIME Qty: 30 RF: 12 Trelegy Ellipta 100-62.5-25 mcg Blister With Device 1 inh INHALATION DAILY RF: 0 azithromycin 250 mg tablet 250 mg PO .MON,WED,FRI RF: 0 potassium chloride 10 mEq tablet extended release 20 meq PO BID RF: 0 furosemide 40 mg Tablet 40 mg PO BID RF: 0 ibuprofen 800 mg Tablet 800 mg PO ONCE PRN (Reason: Pain) RF: 0 fluconazole 200 mg tablet 200 mg PO BID RF: 0 sildenafil (pulm.hypertension) 20 mg tablet 20 mg PO TID RF: 0 Referrals: Rhys Ramos MD [Primary Care Provider] - Coding Level of Care Code ED Sonogram Technician for Philipp Mccollum
[2021-08-23 11:14] VITALS: BP 88/53; PULSE 25
--- NOTE | 2021-08-23 11:14 | XRR_ITS ---
PROCEDURE INFORMATION: Exam: XR Left Hip Exam date and time: 08/23/2021 11:14 AM Age: 76 years old Clinical indication: Injury or trauma; Fall; Blunt trauma (contusions or hematomas); Left; Injury details: History--pt fell, lt hip pain; Additional info: Fall, hypotension, left hip pain TECHNIQUE: Imaging protocol: XR Left hip. Views: 2 or 3 views hip with pelvis when performed. Total images: 2 COMPARISON: CT chest abd pel wo con 04/24/2021 2:45 PM FINDINGS: Bones/joints: 4 part intertrochanteric left femur fracture. No additional fracture, subluxation, or dislocation detected. Soft tissues: Unremarkable. Vasculature: Atherosclerosis is evident. Incidental phleboliths noted. XR/XR hip LT 2-3V wo/w pel* [id number] IMPRESSION: 4 part intertrochanteric left femur fracture. Radiation Dose CTDIVOL = (mGy): DLP = (mGy-cm)
--- NOTE | 2021-08-23 11:14 | XRR_ITS ---
PROCEDURE INFORMATION: Exam: XR Chest Exam date and time: 08/23/2021 11:14 AM Age: 76 years old Clinical indication: Other: Hypotension; Additional info: Fall, hypotension TECHNIQUE: Imaging protocol: XR of the chest. Views: 1 view. Total images: 1 COMPARISON: CR (CHEST, ) 08/10/2021 6:36 AM FINDINGS: Lungs: Status post right lower lobectomy. Stable right pleuroparenchymal disease. Pleural spaces: No pneumothorax. Heart/Mediastinum: Heart size is stable when compared to the prior exam. Bones/joints: Osseous structures are unchanged from the prior exam. XR/XR chest 1V portable [id number] IMPRESSION: Stable right pleuroparenchymal disease. Radiation Dose CTDIVOL = (mGy): DLP = (mGy-cm)
[2021-08-23 11:28] VITALS: BP 88/53; PULSE 77; RESP 20; O2SAT 90; BMI 22.2
--- NOTE | 2021-08-23 11:32 | CT_ITS ---
WS: [id number] CT HEAD TECHNIQUE: Noncontrast CT of the head obtained from the skullbase to the vertex. CLINICAL INFORMATION: fall, hypotension COMPARISON: None. DLP: 893.[address] scans at [facility] use at least one of these dose optimization techniques: automated e xposure control; mA and/or kV adjustment per patient size (includes targeted exams where dose is matc hed to clinical indication); or iterative reconstruction. FINDINGS: No evidence of intracranial hemorrhage or mass effect. Ventricular system and basal cisterns are boykin nt. Mild small vessel changes with mild parenchymal volume loss. No extra-axial fluid collections. No evidence of mass or mass effect. Normal cuevas-white differentiation. Paranasal sinuses and mastoid air cells are well aerated. .Normal visualized soft tissues. CT/CT head wo con* [id number] IMPRESSION: 1. No evidence of intracranial hemorrhage or mass effect. 2. Mild small vessel changes. Mild parenchymal volume loss. 3. No acute intracranial findings.
--- NOTE | 2021-08-23 11:32 | CT_ITS ---
WS: [id number] CT CERVICAL TRAUMA TECHNIQUE: Noncontrast CT of the cervical spine with coronal and sagittal reformatted images. CLINICAL INFORMATION: fall, hypotension COMPARISON: None. DLP: 405.[address] scans at [facility] use at least one of these dose optimization techniques: automated e xposure control; mA and/or kV adjustment per patient size (includes targeted exams where dose is matc hed to clinical indication); or iterative reconstruction. FINDINGS: Moderate spondylitic changes cervical spine. Degenerative arthritis at the C1-C2 articulation. Disc s pace narrowing throughout the cervical spine worse at C5-C7 with disc osteophytic ridging. Mild centr al canal stenosis C5-6 and C6-7 due to disc osteophyte complexes. Severe left C3-4 and Right C4-5 bon y foraminal narrowing. Normal craniocervical junction. Normal occipital condyles.. Normal C1 ring. No evidence of acute fracture or dislocation. Normal prevertebral soft tissues. Mastoids air cells are well aerated. CT/CT cervical spin wo con* [id number] IMPRESSION: 1. No evidence of acute fracture or dislocation. 2. Moderate spondylitic changes with mild central canal stenosis C5-C6 and C6- C7. 3. Severe left C3-C4 and right C4-C5 bony foraminal narrowing.
--- NOTE | 2021-08-23 11:32 | CT_ITS ---
WS: [id number] CT CHEST, ABDOMEN, AND PELVIS TECHNIQUE: Contrast-enhanced CT of the chest, abdomen, and pelvis with coronal and sagittal reformatt ed images. CLINICAL INFORMATION: fall, hypotension COMPARISON: None. DLP: 1455.[address] scans at [facility] use at least one of these dose optimization techniques: automated e xposure control; mA and/or kV adjustment per patient size (includes targeted exams where dose is matc hed to clinical indication); or iterative reconstruction. CT CHEST: Advanced chronic emphysematous changes. Volume loss right lung with evidence of prior postoperative c hanges. Small right pleural effusion. Airspace consolidation in the right lower lobe. Patchy infiltra roberto throughout the right lung. Left lung is well aerated. Fibrotic Opacity left upper lobe lung apex measuring 1.2 CM. A few tiny subcentimeter subpleural nodules in the left lung. Mild tree-in-bud nodu larity left lung likely infectious or inflammatory. Mediastinal shift left to right due to volume loss right lung. Aortic and coronary calcification. No mediastinal lymphadenopathy. No evidence of acute aortic injury. Normal caliber thoracic aorta. CT ABDOMEN AND PELVIS: Hepatomegaly with hepatic parenchymal disease. Cirrhotic liver. Cholecystectomy. Diffuse fatty infilt ration. Normal GE junction. Splenomegaly. Evidence of portal hypertension with upper abdominal varice s. Portal vein and splenic vein are patent. Mild fatty atrophy of the pancreas. Adrenal glands are no rmal. Normal renal parenchymal enhancement. No hydronephrosis. Prominent extrarenal pelvis bilaterall y. Sigmoid diverticulosis. No evidence of acute diverticulitis. No free fluid in the abdomen or pelvis. Normal caliber abdominal aorta with moderate aortic calcification. A few prominent lymph nodes in the leela hepatis likely reactive. Comminuted left proximal femur intratrochanteric fracture with impaction and angulation. Overlapping fracture fragments. Posterior angulation of the proximal fragment. Avulsion of the lesser trochanter. CT/CT chest abd pel w con* IMPRESSION: 1. Chronic volume loss right lung with postoperative lobectomy. Small right pl eural effusion with airspace consolidation right lower lobe with air bronchogra ms. Diffuse patchy infiltrate throughout the right lung. Recommend correlation for pneumonia. 2. No acute traumatic findings in the chest. 3. Cirrhotic liver with splenomegaly and evidence of portal venous hypertensio n. 4. Normal caliber abdominal aorta. No free fluid in the abdomen or pelvis. 5. Comminuted intratrochanteric left femoral fracture with angulation as descr ibed above. Avulsion of the lesser trochanter.
[2021-08-23] MEDS: sodium chloride 0.9% 500 ML 999 ML IV ×2 (11:50→14:31)
[2021-08-23] MEDS: iohexol 300 mg/mL 100 mL Btl IV (12:02)
[2021-08-23] MEDS: fentaNYL 50 mcg/mL INJ 2mL 25 MCG IVP (12:29)
[2021-08-23 12:38] VITALS: BP 78/48; PULSE 88; O2SAT 92
[2021-08-23 13:08] LABS: Alanine Aminotransferase 62 U/L (0-41); Albumin Level 2.4 g/dL (3.5-5.2); Alkaline Phosphatase 226 IU/L (40-130); Anion Gap 15.3 (5-19); Aspartate Amino Transferase 58 U/L (0-40); Blood Urea Nitrogen 24 mg/dL (8-23); Calcium 7.5 mg/dL (8.5-10.5); Carbon Dioxide 24 mmol/L (22-29); Chloride 100 mmol/L (98-107); Glucose 106 mg/dL (65-115); NT Pro B Type Natriuretic Pept 7738 pg/mL (0-450); Osmolality Calculated 286 mOsm/kg (285-295); Potassium 3.3 mmol/L (3.5-5.1); Sodium 136 mmol/L (136-145); Thyroid Stimulating Hormone 13.77 uIU/mL (0.27-4.20); Total Bilirubin 0.7 mg/dL (0.15-1.2); Total Protein 6.4 g/dL (6.6-8.7)
[2021-08-23 13:11] LABS: Basophils % 0.3 %; Eosinophils % 0.5 %; Hematocrit 33.3 % (42.0-52.0); Lymphocytes # 0.7 10^3/uL (0.8-4.8); Lymphocytes % 8.7 %; Mean Corpuscular Hemoglobin 27.2 pg (28.0-34.0); Mean Corpuscular Volume 90.5 fl (80-94); Mean Platelet Volume 10.3 fL (7.4-10.4); Monocytes # 0.6 10^3/uL (0.2-0.9); Neutrophils # 6.49 10^3/uL (1.8-7.7); Nucleated Red Blood Cells % 0 %; Platelet Count 153 10^3/cmm (130-400); Red Blood Count 3.68 10^6/uL (4.1-5.3); Red Cell Distribution Width 17.6 % (12.1-15.1); White Blood Count 7.8 10^3/uL (4.0-10.0)
[2021-08-23] MEDS: tetanus-dipt-pertussis 0.5 mL SDV IM (13:15)
[2021-08-23] MEDS: acetaminophen 1,000 MG/100 ML PIGGYBACK 400 MG IV (13:15)
[2021-08-23 13:18] LABS: Troponin(5th) Baseline 32 ng/L (0-15)
[2021-08-23 13:55] LABS: Free T4 Free Thyroxine 0.71 ng/dL (0.82-1.77)
[2021-08-23 14:30] VITALS: BP 79/49; PULSE 73; O2SAT 96
[2021-08-23 15:17] LABS: Troponin 5 2HR 34.15 ng/L (0-15); Troponin 5 2HR Delta 2.15 ABS# (0-10)
[2021-08-23 15:23] LABS: SARS Covid-2 Antigen Negative (Negative)
== END 2021-08-23 14:55 ==
PROVIDERS: Emergency Provider Emergency Medicine; PCP Family Medicine
DX: I95.9 Hypotension, unspecified (principal); R55 Syncope and collapse; S72.142A Displaced intertrochanteric fracture of left femur, initial encounter for closed fracture; Z85.6 Personal history of leukemia; I11.0 Hypertensive heart disease with heart failure; I50.9 Heart failure, unspecified; Z86.718 Personal history of other venous thrombosis and embolism; Z87.891 Personal history of nicotine dependence; Z23 Encounter for immunization; Z20.822 Contact with and (suspected) exposure to COVID-19; W19.XXXA Unspecified fall, initial encounter
CPT/HCPCS: 70450; 71045; 71260; 72125; 73502; 74177; 80053; 83880; 84439; 84443; 84484; 85025; 86850; 86900; 87426; 90471; 90715; 96374; 99285; J3010; J7040; Q9967